=== PATIENT | male | born 1945 | race Caucasian/White ===

== ENCOUNTER 2021-06-16 10:38 | Inpatient (IN) | payer MEDICARE, SELFPAY ==
--- NOTE | ~2021-06-16 | US_ITS ---
EXAMINATION: US VENOUS ULTRASOUND WITH DOPPLER LOWER EXTREMITY, RIGHT CLINICAL INFORMATION: Swelling. COMPARISON: None TECHNIQUE: Ultrasound of the deep veins is performed from the hip to the calf with compression sonography and color and pulse Doppler assessment. Spectral analysis with color-flow imaging is performed. FINDINGS: There is normal venous compression and respiratory variation and augmented flow. The visualized common femoral vein, superficial femoral vein, profunda femoral vein, popliteal vein, and the trifurcation region shows no evidence of deep venous thrombosis. There is no significant popliteal fossa cyst. There are small right groin lymph nodes. The largest lymph nodes measures 3.2 x 1.5 and 0.9 cm and 2.9 x 1.6 x 1.4 cm. If the patient's symptoms persist, followup ultrasound in 5 days 7 days might be of value to exclude proximal propagation from a non-visualized calf vein. US/US venous duplex LE RT IMPRESSION: No DVT demonstrated in the right lower extremity.
[2021-06-16 12:39] VITALS: BP 160/82; PULSE 60; RESP 16; TEMP 36.4; O2SAT 96; BMI 30.6
--- NOTE | 2021-06-16 12:49 | PC.NURSE ---
wes cesar requests pt transfered to main ed for further evaluation/treatment. report to [facility] charge hand, Larisa and VAZQUEZ Moscoso, pt transported via by christopher Velasquez
--- NOTE | 2021-06-16 13:19 | ED.GENADULT ---
HPI - General Adult General Chief complaint: Extremity Injury, Lower Stated complaint: rt calf infection Time Seen by Provider: 06/16/21 13:15 History of Present Illness HPI narrative: This is a 76 years old male presented to the emergency department complaining of redness on right lower extremity is swelling as well for about 2 weeks, he denies any fever, chills, vomiting Onset (ago): week(s) (2) Location: lower extremity (rt) Severity: moderate Quality: burning Pain Consistency: constant Relieving factors: none Related Data Home Medications Medication Instructions Recorded Confirmed amlodipine 5 mg tablet 5 mg PO DAILY 06/16/21 06/16/21 atenolol 50 mg tablet 50 mg PO DAILY 06/16/21 06/16/21 betamethasone, augmented 0.05 % 1 appl TOPICAL DAILY PRN 06/16/21 06/16/21 topical cream diphenhydramine HCl 25 mg capsule 50 mg PO BID PRN 06/16/21 06/16/21 (Benadryl) famotidine 40 mg tablet 40 mg PO BID 06/16/21 06/16/21 fluticasone furoate 27.5 2 spray INTRANASAL DAILY 06/16/21 06/16/21 mcg/actuation nasal spray,suspension ibuprofen 200 mg tablet 400 mg PO BID 06/16/21 06/16/21 sertraline 50 mg tablet 50 mg PO DAILY 06/16/21 06/16/21 Allergies Allergy/AdvReac Type Severity Reaction Status Date / Time Penicillins [PENICILLINS] Allergy Unknown HIVES, Unverified 07/10/20 16:59 DIARRHEA tetracycline [TETRACYCLINE] Allergy Unknown HIVES, Unverified 07/10/20 16:59 DIARRHEA SEASONAL ALLERGIES Allergy Mild NASAL Uncoded 07/10/20 16:59 CONJESTIONS Review of Systems Review of Systems: Yes all other systems are reviewed and are negative Constitutional: Constitutional: Reports no additional constitutional complaints Eyes: Eyes: Reports no additional eye complaints ENT: Reports system reviewed and no additional complaints, except as documented Musculoskeletal: Musculoskeletal: Reports no additional musculoskeletal complaints Allergic/Immunologic: Allergic/Immunologic: Reports no additional allergic/immunologic complaints PMFSH Past Medical History Attestation statement: The following information was validated with the patient. Medical History Cataract (lens) fragments in eye following cataract surgery, bilateral HTN (hypertension) Surgical History H/O eye surgery History of tonsillectomy Family History Family History Father Heart disease Social History Social History (Updated 06/16/21 @ 16:27 by Jg Mccain MD) Alcohol intake: never Patient Tobacco Use Status: Former Tobacco user Quit Date: 1975 Use of substances other than those prescribed or required for medical reasons: No Advance Directives: Yes Advance Directives Information Provided: Yes Advance Directives on File: No Physical Exam Vital Signs: Vital Signs: Last Vital Signs Temp 97.9 F 06/16/21 14:07 Pulse 69 06/16/21 14:07 Resp 18 06/16/21 14:07 BP 178/116 H 06/16/21 14:07 Pulse Ox 98 06/16/21 14:07 Body Mass Index 30.6 Const: General: cooperative HENMT: Head: Yes normal to inspection Mouth: Normal oral and palatal mucosa present Neck: Neck: Yes normal visual inspection and Yes full ROM Chest: Chest palpation & inspection: normal inspection of the chest and normal palpation of entire chest wall Resp: Effort & Inspection: normal respiratory effort and able to speak in complete sentences Auscultation: clear to auscultation bilaterally Cardio: Jugular venous distension: no JVD Rate: regular rate Rhythm: regular rhythm GI: Inspection: Yes normal to inspection Palpation (GI): Soft to palpation, not firm, nontender and no guarding Extrem: Other: There is swelling, redness erythema of the right lower extremity Medical Decision Making Lab Data Result diagrams: 06/16/21 13:37 06/16/21 13:37 Labs: Lab Results 06/16/21 06/16/21 06/16/21 Range/Units 13:37 13:37 13:37 WBC 13.2 H (4.8-10.8) X10*3/uL RBC 4.58 L (4.60-5.80) X10*6/uL Hgb 13.8 L (14.0-18.0) g/dl Hct 40.0 L (42-52) % MCV 87.3 (80-98) fL MCH 30.1 (27.0-33.0) pg MCHC 34.5 (31.0-36.0) g/dl RDW 13.4 (11.0-16.0) % Plt Count 332 (160-400) X10*3/uL MPV 9.2 L (9.4-12.4) fL Immature Gran % (Auto) 0.5 H (0.0-0.4) % Neut % (Auto) 75.8 H (45-73) % Lymph % (Auto) 7.8 L (20-40) % [place] % (Auto) 6.9 (2-11) % Eos % (Auto) 8.5 H (0-4) % Baso % (Auto) 0.5 (0-2) % Lymph # (Auto) 1.0 L (1.2-4.9) X10*3/uL [place] # (Auto) 0.9 (0.1-1.2) X10*3/uL Eos # (Auto) 1.1 H (0.0-0.4) X10*3/uL Baso # (Auto) 0.1 (0.0-0.2) X10*3/uL Abs Immat Gran (auto) 0.06 H (0.00-0.03) X10*3/uL Absolute Neuts (auto) 10.0 H (2.0-8.3) X10*3/uL Absolute Nucleated RBC 0.000 (0.0-0.012) X10*3/uL Nucleated RBC % (auto) 0.0 (0.0-0.2) /100WBC ESR 8 (0-15) MM/HR Sodium 140 (135-145) mmol/L Potassium 4.5 (3.3-5.1) mmol/L Chloride 105 (96-108) mmol/L Carbon Dioxide 28 (22-29) mmol/L Anion Gap 12 (12-20) BUN 16 (9-16) mg/dL Creatinine 1.26 (0.5-1.4) mg/dL Estim Creat Clear Calc 63.5 Estimated GFR 56 Random Glucose 106 (60-115) mg/dL Calcium 9.4 (8.4-10.2) mg/dL Total Bilirubin 0.6 (0.0-1.0) mg/dL AST 17 (5-37) U/L ALT 15 (0-40) U/L Alkaline Phosphatase 77 (39-117) U/L Total Protein 7.5 (6.5-8.0) g/dL Albumin 4.1 (3.5-5.0) g/dL Discharge Plan Discharge Clinical Impression: Cellulitis of right lower extremity Patient Disposition: Admitted As Inpatient
[2021-06-16 13:53] LABS: MANUAL DIFF FLAG NO
[2021-06-16 13:55] LABS: Basophils Absolute Auto 0.1 X10*3/uL (0.0-0.2); Basophils Percent Auto 0.5 % (0-2); Eosinophils Absolute Auto 1.1 X10*3/uL (0.0-0.4); Eosinophils Percent Auto 8.5 % (0-4); Hemoglobin 13.8 g/dl (14.0-18.0); Imm Gran Abs Auto 0.06 X10*3/uL (0.00-0.03); Imm Gran Pct Auto 0.5 % (0.0-0.4); Lymphocytes Percent Auto 7.8 % (20-40); Mean Corpuscular HGB Conc 34.5 g/dl (31.0-36.0); Mean Corpuscular Hemoglobin 30.1 pg (27.0-33.0); Mean Corpuscular Volume 87.3 fL (80-98); Mean Platelet Volume 9.2 fL (9.4-12.4); Monocytes Absolute Auto 0.9 X10*3/uL (0.1-1.2); Monocytes Percent Auto 6.9 % (2-11); Neutrophils Percent Auto 75.8 % (45-73); Platelet Count 332 X10*3/uL (160-400); Red Blood Count 4.58 X10*6/uL (4.60-5.80); Red Cell Distribution Width 13.4 % (11.0-16.0); White Blood Count 13.2 X10*3/uL (4.8-10.8)
[2021-06-16 14:07] VITALS: BP 178/116; PULSE 69; RESP 18; TEMP 36.6; O2SAT 98
[2021-06-16 14:26] LABS: Alanine Aminotransferase 15 U/L (0-40); Albumin Level 4.1 g/dL (3.5-5.0); Alkaline Phosphatase 77 U/L (39-117); Anion Gap 12 (12-20); Aspartate Amino Transferase 17 U/L (5-37); Bilirubin Total 0.6 mg/dL (0.0-1.0); Blood Urea Nitrogen 16 mg/dL (9-16); Calcium 9.4 mg/dL (8.4-10.2); Carbon Dioxide 28 mmol/L (22-29); Chloride 105 mmol/L (96-108); Creatinine Clr Calc Pharmacy 63.5; Estimated Glomerular Filt Rate 56; Glucose Random 106 mg/dL (60-115); Potassium 4.5 mmol/L (3.3-5.1); Sodium 140 mmol/L (135-145); Total Protein 7.5 g/dL (6.5-8.0)
[2021-06-16 14:33] LABS: Erythrocyte Sedimentation Rate 8 MM/HR (0-15)
--- NOTE | 2021-06-16 16:25 | P.HPHOSP_ITS ---
History of Present Illness Date of Service: 06/16/21 Chief Complaint: rle erythema edema 76-year-old male presented with right lower extremity erythema and edema. Patient states that he hit his foot on stair and scraped his leg about 2-3 weeks prior to presentation. Since that time he has had swelling in his right lower extremity associated with erythema and pain. Patient denies any fever chills. Patient's urged him to seek medical care. Denies any chest pain, shortness of breath, nausea vomiting, diarrhea. Review of Systems Review of Systems: Constitutional: Denies fever, denies Chills Eyes: denies blurry vision ENT: denies sore throat CVS: denies chest pain Respiratory: Denies dyspnea GI: no abdominal pain : denies dysuria MSK: denies neck pain Skin: see hpi Neuro: denies specific motor weakness Psych: denies suicidal ideation Endocrine: denies heat/cold intolerance Hematologic: denies easy bleeding Allergy: denies hives [facility] Medical History Cataract (lens) fragments in eye following cataract surgery, bilateral HTN (hypertension) Family History Father Heart disease Family history: reviewed and not pertinent Surgical History H/O eye surgery History of tonsillectomy Social History (Updated 06/16/21 @ 16:27 by Jg Mccain MD) Alcohol intake: never Patient Tobacco Use Status: Former Tobacco user Quit Date: 1975 Use of substances other than those prescribed or required for medical reasons: No Advance Directives: Yes Advance Directives Information Provided: Yes Advance Directives on File: No Meds Allergies Allergy/AdvReac Type Severity Reaction Status Date / Time Penicillins [PENICILLINS] Allergy Unknown HIVES, Unverified 07/10/20 16:59 DIARRHEA tetracycline [TETRACYCLINE] Allergy Unknown HIVES, Unverified 07/10/20 16:59 DIARRHEA SEASONAL ALLERGIES Allergy Mild NASAL Uncoded 07/10/20 16:59 CONJESTIONS Active Medications: Current Medications Generic Name Dose Route Start Last Admin Trade Name Freq PRN Reason Stop Dose Admin Acetaminophen 650 mg 06/16/21 16:21 Acetaminophen 325 Mg Tablet PO Q6H PRN Pain, Mild (Pain Scale 1-3) Vancomycin HCl 1,000 mg/ 270 mls @ 270 mls/hr 06/16/21 15:49 Sodium Chloride IV 06/16/21 16:48 ONCE ONE Vancomycin HCl 1,000 mg/ 270 mls @ 270 mls/hr 06/17/21 06:00 Sodium Chloride IV Q12H [facility] Pharmacy Consult 1 each 06/16/21 15:56 Consult Rx Perform Med Rec MISCELLANE ONCE PRN Consult order Pharmacy Consult 1 each 06/16/21 16:21 Consult Rx Vancomycin Dosing MISCELLANE DAILY PRN Consult order Rivaroxaban 10 mg 06/17/21 09:00 Rivaroxaban 10 Mg Tablet PO DAILY [facility] Sodium Chloride 3 ml 06/17/21 00:00 0.9 % Sodium Chloride Flush 3 Ml Syringe IVFLUSH QSHIFT [facility] Home Medications Medication Instructions Recorded Confirmed Last Taken Type amlodipine 5 mg tablet 5 mg PO DAILY 06/16/21 06/16/21 06/16/21 History atenolol 50 mg tablet 50 mg PO DAILY 06/16/21 06/16/21 06/16/21 History famotidine 40 mg tablet 40 mg PO BID 06/16/21 06/16/21 06/16/21 History Physical Exam Vital Signs and Narrative: Vital Signs: Last Vital Signs Temp 97.9 F 06/16/21 14:07 Pulse 69 06/16/21 14:07 Resp 18 06/16/21 14:07 BP 178/116 H 06/16/21 14:07 Pulse Ox 98 06/16/21 14:07 Body Mass Index 30.6 General: no acute distress HEENT: atraumatic Neck: normal to visual inspection CVS: S1, S2, RRR Resp: CTA bilateral Chest: non tender GI: soft, non tender, non distended : no CVA tenderness Skin: rLE erythema edema Extremities: rle edema Neuro: Oriented X3, grossly intact Psych: cooperative Results Labs CBC and Chem 7: 06/16/21 13:37 06/16/21 13:37 Labs: Laboratory Results - last 24 hr 06/16/21 06/16/21 06/16/21 13:37 13:37 13:37 MCV 87.3 MCH 30.1 MCHC 34.5 RDW 13.4 Plt Count 332 MPV 9.2 L Immature Gran % (Auto) 0.5 H Neut % (Auto) 75.8 H Lymph % (Auto) 7.8 L [place] % (Auto) 6.9 Eos % (Auto) 8.5 H Baso % (Auto) 0.5 Lymph # (Auto) 1.0 L [place] # (Auto) 0.9 Eos # (Auto) 1.1 H Baso # (Auto) 0.1 Abs Immat Gran (auto) 0.06 H Absolute Neuts (auto) 10.0 H Absolute Nucleated RBC 0.000 Nucleated RBC % (auto) 0.0 ESR 8 Anion Gap 12 Estim Creat Clear Calc 63.5 Estimated GFR 56 Random Glucose 106 Calcium 9.4 Total Bilirubin 0.6 AST 17 ALT 15 Alkaline Phosphatase 77 Total Protein 7.5 Albumin 4.1 Imaging Radiologist's Impressions: Impressions Venous Duplex 06/16/21 13:16 IMPRESSION: No DVT demonstrated in the right lower extremity. Assessment and Plan (1) Cellulitis of right lower extremity: Status: Acute 76M presented with rle erytehma and edema rle cellulitis vanco follow up cultures htn amlodipine, atenolol mood disorder sertraline dvt prophylaxis - xarelto Quality Stroke Does the patient have a stroke diagnosis?: No VTE Prior VTE?: No VTE Risk Level:: Medical - moderate - high VTE Device Contraindication: Treatment Not Indicated VTE Drug Contraindication: N/A - Med Ordered
--- NOTE | 2021-06-16 16:36 | PHA.MEDREC ---
med rec complete, no issues Pharmacy Consult ? Medication Reconciliation Pharmacy has completed the medication reconciliation.
[2021-06-16] MEDS: vancomycin HCL 1,000 MG in 0.9 % Sodium Chloride 250 ML 270 MG IV (16:51)
[2021-06-16 17:00] LABS: COVID-19 Test Negative (Negative)
--- NOTE | 2021-06-16 18:35 | PC.NURSE ---
Pt alert and oriented. Notified of transfer to floor. Attmpt at calling report at this time. Pt ate his dinner and able to walk himself to the bathroom.
--- NOTE | 2021-06-16 19:22 | PC.NURSE ---
pt to floor in stable condition w/ all belongings via Jason PCT. report called by day shift RN
[2021-06-16 19:46] VITALS: BP 162/105; PULSE 82; RESP 18; TEMP 36.2; O2SAT 98
[2021-06-16] MEDS: Acetaminophen 325 MG TABLET 650 MG PO (20:17)
[2021-06-16] MEDS: Famotidine 20 MG TABLET 40 MG PO (20:17)
[2021-06-16] MEDS: diphenhydrAMINE HCL 25 MG TABLET 50 MG PO (20:23)
[2021-06-16] MEDS: 0.9 % Sodium Chloride Flush 3 ML SYRINGE IVFLUSH (20:23)
[2021-06-16 21:03] VITALS: BP 158/89
[2021-06-16] MEDS: Betamethasone Dip Aug 0.05% Cr 15 GM TUBE 1 APPL TOPICAL (21:50)
[2021-06-16 23:28] VITALS: BP 149/90; PULSE 79; RESP 16; TEMP 36.8; O2SAT 97
[2021-06-17 04:00] VITALS: BP 150/84; PULSE 72; RESP 18; TEMP 37.1; O2SAT 97
[2021-06-17] MEDS: vancomycin HCL 750 MG in 0.9 % Sodium Chloride 250 ML 265 MG IV ×2 (06:01→17:51)
[2021-06-17 06:23] LABS: MANUAL DIFF FLAG NO
[2021-06-17 06:43] LABS: Basophils Percent Auto 0.4 % (0-2); Eosinophils Percent Auto 8.7 % (0-4); Hematocrit 35.9 % (42-52); Hemoglobin 12.7 g/dl (14.0-18.0); Imm Gran Abs Auto 0.06 X10*3/uL (0.00-0.03); Imm Gran Pct Auto 0.5 % (0.0-0.4); Lymphocytes Absolute Auto 1.1 X10*3/uL (1.2-4.9); Mean Corpuscular HGB Conc 35.4 g/dl (31.0-36.0); Mean Corpuscular Hemoglobin 30.7 pg (27.0-33.0); Mean Corpuscular Volume 86.7 fL (80-98); Mean Platelet Volume 9.6 fL (9.4-12.4); Monocytes Absolute Auto 0.9 X10*3/uL (0.1-1.2); Monocytes Percent Auto 7.7 % (2-11); Neutrophils Absolute Auto 8.1 X10*3/uL (2.0-8.3); Neutrophils Percent Auto 72.7 % (45-73); Platelet Count 290 X10*3/uL (160-400); Red Blood Count 4.14 X10*6/uL (4.60-5.80); Red Cell Distribution Width 13.1 % (11.0-16.0); White Blood Count 11.2 X10*3/uL (4.8-10.8)
[2021-06-17 07:04] LABS: Anion Gap 11 (12-20); Blood Urea Nitrogen 16 mg/dL (9-16); Calcium 8.5 mg/dL (8.4-10.2); Carbon Dioxide 26 mmol/L (22-29); Chloride 104 mmol/L (96-108); Creatinine Clr Calc Pharmacy 75.4; Estimated Glomerular Filt Rate > 60; Glucose Random 97 mg/dL (60-115); Potassium 3.9 mmol/L (3.3-5.1); Sodium 137 mmol/L (135-145)
[2021-06-17 07:53] VITALS: BP 163/92; PULSE 78; RESP 18; TEMP 36.4; O2SAT 96
[2021-06-17] MEDS: Famotidine 20 MG TABLET 40 MG PO ×2 (08:03→21:02)
[2021-06-17] MEDS: atenoloL 50 MG TABLET PO (08:03)
[2021-06-17] MEDS: Sertraline HCL 50 MG TABLET PO (08:03)
[2021-06-17] MEDS: Rivaroxaban 10 MG TABLET PO (08:03)
[2021-06-17] MEDS: amLODIPine Besylate 5 MG TABLET PO (08:03)
[2021-06-17] MEDS: 0.9 % Sodium Chloride Flush 3 ML SYRINGE IVFLUSH ×2 (08:05→17:51)
[2021-06-17] MEDS: Acetaminophen 325 MG TABLET 650 MG PO ×2 (08:07→21:02)
--- NOTE | 2021-06-17 09:52 | P.PNIM_ITS ---
Subjective Subjective Date of Service: 06/17/21 Interval History: some improvement, mostly in the swelling Cardiovascular Cardiovascular: Reports no additional cardiovascular complaints Respiratory Respiratory: Reports no additional respiratory complaints Physical Exam Vital Signs: Vital Signs: Last Vital Signs Temp 97.5 F 06/17/21 07:53 Pulse 78 06/17/21 07:53 Resp 18 06/17/21 07:53 BP 163/92 H 06/17/21 07:53 Pulse Ox 96 06/17/21 07:53 Body Mass Index 30.6 General: AO X 3, no acute distress Resp: CTA bilateral CVS: S1,S2,RRR GI: soft, non tender, non distended Neuro: motor grossly intact Psych: appropriate affect RLE decreased edema, persistent ertyhema Objective Data Current Medications Generic Name Dose Route Start Last Admin Trade Name Freq PRN Reason Stop Dose Admin Acetaminophen 650 mg 06/16/21 16:21 06/17/21 08:07 Acetaminophen 325 Mg Tablet PO 650 mg Q6H PRN Administration Pain, Mild (Pain Scale 1-3) Amlodipine Besylate 5 mg 06/17/21 09:00 06/17/21 08:03 Amlodipine Besylate 5 Mg Tablet PO 5 mg DAILY NEGRO Administration Protocol Atenolol 50 mg 06/17/21 09:00 06/17/21 08:03 Atenolol 50 Mg Tablet PO 50 mg DAILY NEGRO Administration Protocol Betamethasone Dipropion Augmented 1 appl 06/16/21 20:15 06/16/21 21:50 Betamethasone Dip Aug 0.05% Cr 15 Gm Tube TOPICAL 1 appl DAILY PRN Administration DERMATITIS Protocol Diphenhydramine HCl 50 mg 06/16/21 20:15 06/16/21 20:23 Diphenhydramine Hcl 25 Mg Tablet PO 50 mg BID PRN Administration Allergy Symptoms Famotidine 40 mg 06/16/21 21:00 06/17/21 08:03 Famotidine 20 Mg Tablet PO 40 mg BID NEGRO Administration Fluticasone Propionate 1 spray 06/17/21 09:00 Fluticasone Propionate Nasal 16 Gm [place] NOSTRIL-B DAILY [facility] Vancomycin HCl 750 mg/ Sodium 265 mls @ 265 mls/hr 06/17/21 06:00 06/17/21 07:08 Chloride IV Infused Q12H [facility] Infusion Pharmacy Consult 1 each 06/16/21 15:56 Consult Rx Perform Med Rec MISCELLANE ONCE PRN Consult order Pharmacy Consult 1 each 06/16/21 16:21 Consult Rx Vancomycin Dosing MISCELLANE DAILY PRN Consult order Rivaroxaban 10 mg 06/17/21 09:00 06/17/21 08:03 Rivaroxaban 10 Mg Tablet PO 10 mg DAILY NEGRO Administration Sertraline HCl 50 mg 06/16/21 20:15 06/17/21 08:03 Sertraline Hcl 50 Mg Tablet PO 50 mg DAILY NEGRO Administration Sodium Chloride 3 ml 06/17/21 00:00 06/17/21 08:05 0.9 % Sodium Chloride Flush 3 Ml Syringe IVFLUSH 3 ml QSHIFT [facility] Administration Labs CBC & Chem 7: 06/17/21 06:09 06/17/21 06:09 Labs: Laboratory Results - last 24 hr 06/16/21 06/16/21 06/16/21 13:37 13:37 13:37 MCV 87.3 MCH 30.1 MCHC 34.5 RDW 13.4 Plt Count 332 MPV 9.2 L Immature Gran % (Auto) 0.5 H Neut % (Auto) 75.8 H Lymph % (Auto) 7.8 L [place] % (Auto) 6.9 Eos % (Auto) 8.5 H Baso % (Auto) 0.5 Lymph # (Auto) 1.0 L [place] # (Auto) 0.9 Eos # (Auto) 1.1 H Baso # (Auto) 0.1 Abs Immat Gran (auto) 0.06 H Absolute Neuts (auto) 10.0 H Absolute Nucleated RBC 0.000 Nucleated RBC % (auto) 0.0 ESR 8 Anion Gap 12 Estim Creat Clear Calc 63.5 Estimated GFR 56 Random Glucose 106 Calcium 9.4 Total Bilirubin 0.6 AST 17 ALT 15 Alkaline Phosphatase 77 Total Protein 7.5 Albumin 4.1 COVID-19 ([facility]) COVID-19 Clin Com 06/16/21 06/17/21 06/17/21 16:37 06:09 06:09 MCV 86.7 MCH 30.7 MCHC 35.4 RDW 13.1 Plt Count 290 MPV 9.6 Immature Gran % (Auto) 0.5 H Neut % (Auto) 72.7 Lymph % (Auto) 10.0 L [place] % (Auto) 7.7 Eos % (Auto) 8.7 H Baso % (Auto) 0.4 Lymph # (Auto) 1.1 L [place] # (Auto) 0.9 Eos # (Auto) 1.0 H Baso # (Auto) 0.0 Abs Immat Gran (auto) 0.06 H Absolute Neuts (auto) 8.1 Absolute Nucleated RBC 0.000 Nucleated RBC % (auto) 0.0 ESR Anion Gap 11 L Estim Creat Clear Calc 75.4 Estimated GFR > 60 Random Glucose 97 Calcium 8.5 D Total Bilirubin AST ALT Alkaline Phosphatase Total Protein Albumin COVID-19 (FELIPE) Negative COVID-19 Clin Com See Note Assessment and Plan (1) Cellulitis of right lower extremity: Status: Acute Assessment and Plan: ?76M presented with rle erytehma and edema rle cellulitis continue vanco follow up cultures htn amlodipine, atenolol mood disorder sertraline dvt prophylaxis - xarelto Quality Stroke Does the patient have a stroke diagnosis?: No VTE Prior VTE?: No VTE Risk Level:: Medical - moderate - high VTE Device Contraindication: Treatment Not Indicated VTE Drug Contraindication: N/A - Med Ordered
[2021-06-17 11:59] VITALS: BP 139/74; PULSE 66; RESP 18; TEMP 37.1; O2SAT 95
[2021-06-17] MEDS: Fluticasone Propionate Nasal 16 GM SPRAY 1 SPRAY NOSTRIL-B (12:05)
[2021-06-17 15:37] VITALS: BP 160/80; PULSE 63; RESP 17; TEMP 36.3; O2SAT 96
--- NOTE | 2021-06-17 15:43 | MHC.CM.PN ---
IMM 06/17/21, EMR REVIEWED, PT ADMITTED W/CELLULITIS OF RLE, PT REPORTS IT IS THE THIRD TIME HE'S HAD THIS PROBLEM AND HAS ALWAYS GONE HOME W/ORAL ABX, PER HOSPITALIST PT WILL REMAIN ON IV ABX 1-2 DAYS AND D/C ON ORAL ABX. PT LIVES W/ AND BROTHER, PT IS INDEPENDENT W/ALL CARE, NO DME AND NO HOME SERVICES, PT REPORTS HE HAS HAD A VNA IN PAST HOWEVER IS CURRENTLY DECLINING REPORTING HIS WILL TAKE CARE OF ANY NEEDS HE MAY HAVE, PT VERIFIES PCP AND HCP IS ON FILE FROM PREVIOUS ADMISSION. D/C PLAN: HOME SELF-CARE, FAMILY TO TRANSPORT.
[2021-06-17 19:46] VITALS: BP 169/86; PULSE 73; RESP 16; TEMP 36.7; O2SAT 97
[2021-06-17] MEDS: diphenhydrAMINE HCL 25 MG TABLET 50 MG PO (21:02)
[2021-06-17 23:20] VITALS: BP 160/90; PULSE 70; RESP 18; TEMP 36.4; O2SAT 97
[2021-06-18] MEDS: 0.9 % Sodium Chloride Flush 3 ML SYRINGE IVFLUSH ×3 (00:43→15:34)
[2021-06-18 03:00] VITALS: BP 156/81; PULSE 66; RESP 18; TEMP 36.2; O2SAT 97
[2021-06-18 05:23] LABS: Vancomycin Trough 9.8 mcg/mL (10.0-20.0)
[2021-06-18] MEDS: vancomycin HCL 750 MG in 0.9 % Sodium Chloride 250 ML 265 MG IV ×2 (06:38→17:55)
--- NOTE | 2021-06-18 06:41 | PC.NURSE ---
Vancomycin trough low at 9.8, patient is on vancomycin 750 mg q12h. This rn spoke to pharmacy, co to give 0600 dose.
[2021-06-18 07:43] VITALS: BP 174/83; PULSE 66; RESP 17; TEMP 36.8; O2SAT 95
[2021-06-18] MEDS: Sertraline HCL 50 MG TABLET PO (07:51)
[2021-06-18] MEDS: Famotidine 20 MG TABLET 40 MG PO ×2 (07:51→20:18)
[2021-06-18] MEDS: amLODIPine Besylate 5 MG TABLET PO ×2 (07:51→15:33)
[2021-06-18] MEDS: atenoloL 50 MG TABLET PO (07:52)
[2021-06-18] MEDS: Rivaroxaban 10 MG TABLET PO (07:55)
[2021-06-18] MEDS: Acetaminophen 325 MG TABLET 650 MG PO (07:56)
--- NOTE | 2021-06-18 08:30 | P.PNIM_ITS ---
Subjective Subjective Date of Service: 06/18/21 Interval History: Seen in f/u for cellulitis that is extensive, seem a bit better Review of Systems Gen: no fever Resp: no sob, no cough CV: no chest, no MCCURDY, no leg edema GI: No n/v, no abd pain Neuro: No confusion skin: redness of leg Physical Exam Vital Signs: Vital Signs: Last Vital Signs Temp 98.3 F 06/18/21 07:43 Pulse 66 06/18/21 07:43 Resp 17 06/18/21 07:43 BP 174/83 H 06/18/21 07:43 Pulse Ox 95 06/18/21 07:43 Body Mass Index 30.6 Const: General: comfortable Orientation/consciousness: patient oriented x3 Resp: Effort & Inspection: normal respiratory effort Cardio: Rate: regular rate Heart sounds: S1 normal heart sound present and S2 normal heart sound present GI: Inspection: Yes normal to inspection Skin: Other: extensive erythema of entire right leg with superficial ulcerations Neuro: General: patient oriented x3 Cognition (Neuro): normal cognition Psych: Appearance: grossly normal Objective Data Current Medications Generic Name Dose Route Start Last Admin Trade Name Freq PRN Reason Stop Dose Admin Acetaminophen 650 mg 06/16/21 16:21 06/18/21 07:56 Acetaminophen 325 Mg Tablet PO 650 mg Q6H PRN Administration Pain, Mild (Pain Scale 1-3) Amlodipine Besylate 5 mg 06/17/21 09:00 06/18/21 07:51 Amlodipine Besylate 5 Mg Tablet PO 5 mg DAILY NEGRO Administration Protocol Atenolol 50 mg 06/17/21 09:00 06/18/21 07:52 Atenolol 50 Mg Tablet PO 50 mg DAILY NEGRO Administration Protocol Betamethasone Dipropion Augmented 1 appl 06/16/21 20:15 06/16/21 21:50 Betamethasone Dip Aug 0.05% Cr 15 Gm Tube TOPICAL 1 appl DAILY PRN Administration DERMATITIS Protocol Diphenhydramine HCl 50 mg 06/16/21 20:15 06/17/21 21:02 Diphenhydramine Hcl 25 Mg Tablet PO 50 mg BID PRN Administration Allergy Symptoms Famotidine 40 mg 06/16/21 21:00 06/18/21 07:51 Famotidine 20 Mg Tablet PO 40 mg BID NEGRO Administration Fluticasone Propionate 1 spray 06/17/21 09:00 06/18/21 07:57 Fluticasone Propionate Nasal 16 Gm [place] NOSTRIL-B Not Given DAILY [facility] Vancomycin HCl 750 mg/ Sodium 265 mls @ 265 mls/hr 06/17/21 06:00 06/18/21 07:49 Chloride IV Infused Q12H [facility] Infusion Pharmacy Consult 1 each 06/16/21 15:56 Consult Rx Perform Med Rec MISCELLANE ONCE PRN Consult order Pharmacy Consult 1 each 06/16/21 16:21 Consult Rx Vancomycin Dosing MISCELLANE DAILY PRN Consult order Rivaroxaban 10 mg 06/17/21 09:00 06/18/21 07:55 Rivaroxaban 10 Mg Tablet PO 10 mg DAILY [facility]GRO Administration Sertraline HCl 50 mg 06/16/21 20:15 06/18/21 07:51 Sertraline Hcl 50 Mg Tablet PO 50 mg DAILY NEGRO Administration Sodium Chloride 3 ml 06/17/21 00:00 06/18/21 07:53 0.9 % Sodium Chloride Flush 3 Ml Syringe IVFLUSH 3 ml QSHIFT [facility] Administration Labs CBC & Chem 7: 06/17/21 06:09 06/17/21 06:09 Labs: Laboratory Results - last 24 hr 06/18/21 04:46 Vancomycin Trough 9.8 L Microbiology Microbiology Results: Microbiology 06/16/21 14:58 Blood Culture - Preliminary Blood - Venous No growth after 24 hours. 06/16/21 14:11 Blood Culture - Preliminary Blood - Venous No growth after 24 hours. Assessment and Plan (1) Cellulitis of right lower extremity: Status: Acute Assessment and Plan: 76M presented with rle erytehma and edema Right leg extensive cellulitis covering > 50% of the limb associated with ulcers and limb threatening. Would continue IV antibiotics and reassess tomorrow for transitioning to oral meds. Follow cultures HTN--BP high, continue Ateneolol and increase Norvasc to 10 Mood disorder sertraline DVT prophylaxis - xarelto Quality Stroke Does the patient have a stroke diagnosis?: No VTE Prior VTE?: No VTE Risk Level:: Medical - moderate - high VTE Device Contraindication: Treatment Not Indicated VTE Drug Contraindication: N/A - Med Ordered
[2021-06-18 12:00] VITALS: RESP 18
[2021-06-18 15:08] VITALS: BP 159/75; PULSE 57; RESP 18; TEMP 37.2; O2SAT 97
[2021-06-18 18:54] VITALS: BP 173/85; PULSE 66; RESP 20; TEMP 37; O2SAT 96
[2021-06-18 22:59] VITALS: BP 152/81; PULSE 61; RESP 16; TEMP 36.7; O2SAT 97
[2021-06-19] MEDS: 0.9 % Sodium Chloride Flush 3 ML SYRINGE IVFLUSH ×4 (00:03→21:45)
[2021-06-19 04:00] VITALS: BP 158/88; PULSE 73; RESP 18; TEMP 36.3; O2SAT 95
[2021-06-19] MEDS: vancomycin HCL 750 MG in 0.9 % Sodium Chloride 250 ML 265 MG IV ×2 (06:23→18:04)
[2021-06-19 07:45] VITALS: BP 188/88; PULSE 58; RESP 18; TEMP 36.9; O2SAT 98
[2021-06-19] MEDS: amLODIPine Besylate 10 MG TABLET PO (08:33)
[2021-06-19] MEDS: Famotidine 20 MG TABLET 40 MG PO ×2 (08:33→21:18)
[2021-06-19] MEDS: Rivaroxaban 10 MG TABLET PO (08:33)
[2021-06-19] MEDS: Fluticasone Propionate Nasal 16 GM SPRAY 1 SPRAY NOSTRIL-B (08:33)
[2021-06-19] MEDS: atenoloL 50 MG TABLET PO (08:33)
[2021-06-19] MEDS: Sertraline HCL 50 MG TABLET PO (08:33)
[2021-06-19 11:36] VITALS: BP 140/81; PULSE 65; RESP 16; TEMP 36.4; O2SAT 98
[2021-06-19] MEDS: NeoMY/Polymyx/Bacit/Ointment 14 GM Tube TOPICAL (13:15)
--- NOTE | 2021-06-19 13:41 | P.PNIM_ITS ---
Subjective Subjective Date of Service: 06/19/21 Interval History: the patient was seen and evaluated this morning Laying in bed, feels better today as edema and pain decreased in his right lower extremity Denies any fever, chills or shortness of breath No reported other overnight events. Systemic review: No fever, chills or weakness No chest pain, palpitation No shortness of breath or coughing No abdominal pain, nausea or vomiting No urinary symptoms Rash improving but the day still read H and H she Physical Exam Vital Signs: Vital Signs: Last Vital Signs Temp 97.6 F 06/19/21 11:36 Pulse 65 06/19/21 11:36 Resp 16 06/19/21 11:36 BP 140/81 H 06/19/21 11:36 Pulse Ox 98 06/19/21 11:36 Body Mass Index 30.6 Const: Other: Constitutional : Alert, oriented, not in distress Neck : Normal inspection, Supple Cardiovascular : RRR, S1 S2, +1 edema in the right lower extremity edema Respiratory : Good bilateral air entry, no crackles, wheezes or rhonchi Gastrointestinal: soft, lax, Normal bowel sounds, Non tender Skin : Warm, Dry, pinkish discoloration of the right lower extremity which seems to be improving in comparison with previous images, no tenderness with mild edema Neurological : Alert & oriented x3, No focal deficit Objective Data Current Medications Generic Name Dose Route Start Last Admin Trade Name Freq PRN Reason Stop Dose Admin Acetaminophen 650 mg 06/16/21 16:21 06/18/21 07:56 Acetaminophen 325 Mg Tablet PO 650 mg Q6H PRN Administration Pain, Mild (Pain Scale 1-3) Amlodipine Besylate 10 mg 06/19/21 09:00 06/19/21 08:33 Amlodipine Besylate 10 Mg Tablet PO 10 mg DAILY NEGRO Administration Protocol Atenolol 50 mg 06/17/21 09:00 06/19/21 08:33 Atenolol 50 Mg Tablet PO 50 mg DAILY NEGRO Administration Protocol Betamethasone Dipropion Augmented 1 appl 06/16/21 20:15 06/16/21 21:50 Betamethasone Dip Aug 0.05% Cr 15 Gm Tube TOPICAL 1 appl DAILY PRN Administration DERMATITIS Protocol Diphenhydramine HCl 50 mg 06/16/21 20:15 06/17/21 21:02 Diphenhydramine Hcl 25 Mg Tablet PO 50 mg BID PRN Administration Allergy Symptoms Famotidine 40 mg 06/16/21 21:00 06/19/21 08:33 Famotidine 20 Mg Tablet PO 40 mg BID [facility] Administration Fluticasone Propionate 1 spray 06/17/21 09:00 06/19/21 08:33 Fluticasone Propionate Nasal 16 [place] NOSTRIL-B 1 spray DAILY [facility] Administration Vancomycin HCl 750 mg/ Sodium 265 mls @ 265 mls/hr 06/17/21 06:00 06/19/21 08:17 Chloride IV Infused Q12H [facility] Infusion Neomycin/Polymyxin/Bacitracin 1 gm 06/19/21 12:30 06/19/21 13:15 Neomy/Polymyx/Bacit/Ointment 14 Gm Tube TOPICAL 1 gm BID [facility] Administration Pharmacy Consult 1 each 06/16/21 15:56 Consult Rx Perform Med Rec MISCELLANE ONCE PRN Consult order Pharmacy Consult 1 each 06/16/21 16:21 Consult Rx Vancomycin Dosing MISCELLANE DAILY PRN Consult order Rivaroxaban 10 mg 06/17/21 09:00 06/19/21 08:33 Rivaroxaban 10 Mg Tablet PO 10 mg DAILY NEGRO Administration Sertraline HCl 50 mg 06/16/21 20:15 06/19/21 08:33 Sertraline Hcl 50 Mg Tablet PO 50 mg DAILY [facility] Administration Sodium Chloride 3 ml 06/17/21 00:00 06/19/21 08:34 0.9 % Sodium Chloride Flush 3 Ml Syringe IVFLUSH 3 ml QSHIFT [facility] Administration Labs CBC & Chem 7: 06/17/21 06:09 06/17/21 06:09 Microbiology Microbiology Results: Microbiology 06/16/21 14:58 Blood Culture - Preliminary Blood - Venous No growth after 48 hours. 06/16/21 14:11 Blood Culture - Preliminary Blood - Venous No growth after 48 hours. Assessment and Plan (1) Cellulitis of right lower extremity: Status: Acute (2) HTN (hypertension): Status: Acute Assessment and Plan: 76M presented with rle erytehma and edema Right leg extensive cellulitis covering > 50% of the limb Associated with the chronic venous insufficiency and edema continue IV vancomycin Keep leg elevated, apply Messi wrap Local ointment reassess tomorrow for transitioning to oral meds Follow cultures HTN BP high better controlled continue Ateneolol increase Norvasc to 10 Mood disorder sertraline DVT prophylaxis - xarelto Quality Stroke Does the patient have a stroke diagnosis?: No VTE Prior VTE?: No VTE Risk Level:: Medical - moderate - high VTE Device Contraindication: Treatment Not Indicated VTE Drug Contraindication: N/A - Med Ordered
--- NOTE | 2021-06-19 14:33 | MHC.CM.PN ---
EMR REVIEWED, PER HOSPITALIST PT WILL REMAIN AN ADDITIONAL NIGHT TO CONT IV VANCOMYCIN, PT DOES REPORT FEELING BETTER AND WOULD LIKE TO D/C SOON HE CAN, PT CONT'S TO DECLINE HOME SERVICES.
[2021-06-19 15:31] VITALS: BP 164/82; PULSE 65; RESP 17; TEMP 36.6; O2SAT 97
[2021-06-19 19:29] VITALS: BP 159/77; PULSE 76; RESP 18; TEMP 35.7; O2SAT 97
[2021-06-19] MEDS: Acetaminophen 325 MG TABLET 650 MG PO (21:41)
[2021-06-20] VITALS: BP 148/70; PULSE 65; RESP 18; TEMP 36.3; O2SAT 98
[2021-06-20 03:25] VITALS: BP 174/82; PULSE 54; RESP 18; TEMP 36.3; O2SAT 96
[2021-06-20] MEDS: vancomycin HCL 750 MG in 0.9 % Sodium Chloride 250 ML 265 MG IV (05:47)
[2021-06-20 07:35] VITALS: BP 170/85; PULSE 64; RESP 19; TEMP 36.6; O2SAT 99
[2021-06-20 08:50] VITALS: BP 170/85; PULSE 64
[2021-06-20] MEDS: atenoloL 50 MG TABLET PO (08:50)
[2021-06-20 08:51] VITALS: BP 170/85; PULSE 64
[2021-06-20] MEDS: Famotidine 20 MG TABLET 40 MG PO (08:51)
[2021-06-20] MEDS: lisinopriL 5 MG TABLET PO (08:51)
[2021-06-20] MEDS: amLODIPine Besylate 10 MG TABLET PO (08:51)
[2021-06-20] MEDS: Sertraline HCL 50 MG TABLET PO (08:51)
[2021-06-20] MEDS: 0.9 % Sodium Chloride Flush 3 ML SYRINGE IVFLUSH (08:52)
[2021-06-20] MEDS: Rivaroxaban 10 MG TABLET PO (08:52)
[2021-06-20] MEDS: NeoMY/Polymyx/Bacit/Ointment 14 GM Tube TOPICAL (08:52)
[2021-06-20] MEDS: Fluticasone Propionate Nasal 16 GM SPRAY 1 SPRAY NOSTRIL-B (08:53)
[2021-06-20] MEDS: Betamethasone Dip Aug 0.05% Cr 15 GM TUBE 1 APPL TOPICAL (08:53)
[2021-06-20] MEDS: Acetaminophen 325 MG TABLET 650 MG PO (08:56)
[2021-06-20] MEDS: diphenhydrAMINE HCL 25 MG TABLET 50 MG PO (08:56)
[2021-06-20 11:45] VITALS: BP 143/80; PULSE 61; RESP 19; TEMP 36.2; O2SAT 98
--- NOTE | 2021-06-20 11:50 | PM.DS ---
DS: Providers Provider Date of Service: 06/20/21 Date of admission: 06/16/21 16:22 Primary care physician: Wesley Chao MD DS: Diagnosis Discharge Diagnosis (1) Cellulitis of right lower extremity: Status: Acute (2) HTN (hypertension): Status: Acute DS: Medications Discharge Medications Home Medications: Home Medications Medication Instructions Recorded Confirmed amlodipine 5 mg tablet 5 mg PO DAILY 06/16/21 06/16/21 atenolol 50 mg tablet 50 mg PO DAILY 06/16/21 06/16/21 betamethasone, augmented 0.05 % 1 appl TOPICAL DAILY PRN 06/16/21 06/16/21 topical cream diphenhydramine HCl 25 mg capsule 50 mg PO BID PRN 06/16/21 06/16/21 (Benadryl) famotidine 40 mg tablet 40 mg PO BID 06/16/21 06/16/21 fluticasone furoate 27.5 2 spray INTRANASAL DAILY 06/16/21 06/16/21 mcg/actuation nasal spray,suspension ibuprofen 200 mg tablet 400 mg PO BID 06/16/21 06/16/21 sertraline 50 mg tablet 50 mg PO DAILY 06/16/21 06/16/21 Previous Rx's Medication Instructions Recorded clindamycin HCl 300 mg capsule 300 mg PO Q8H #18 cap 06/20/21 lisinopril 5 mg tablet 5 mg PO DAILY 30 Days #30 tab 06/20/21 neomycin-bacitracn Zn-polymyx 3.5 1 g TOPICAL BID 7 Days #4000 g 06/20/21 mg-400 unit-5,000 unit/gram top oint (Triple Antibiotic) DS: Summary Hospital Course Hospital Course: Admission note HPI 76-year-old male presented with right lower extremity erythema and edema.? Patient states that he hit his foot on stair and scraped his leg about 2-3 weeks prior to presentation.? Since that time he has had swelling in his right lower extremity associated with erythema and pain.? Patient denies any fever chills.? Patient's urged him to seek medical care.? Denies any chest pain, shortness of breath, nausea vomiting, diarrhea. Hospital course The patient was admitted for evaluation right lower extremity erythema. Treated as cellulitis with IV antibiotics The patient reported allergy to penicillin and tetracycline he was treated mainly with vancomycin with fair response over the course of hospital stay as blood cultures remain negative and the erythema and pain decreased significantly. The patient leg kept elevated with addition of Messi wrap. Patient was able to ambulate reporting significant improvement. He was noted to elevated blood pressure readings of 180s over 80s multiple occasions. Addition of lisinopril 5 mg daily with fair response. To be prescribed at time of discharge. to be discharged home on clindamycin for 6 more days to finish total of 10 days of antibiotics and to follow-up with his primary care next week as scheduled. Advised to continue the Messi wrap at time of discharge. Time Spent with Patient Time attestation: Total time spent providing and/or coordinating discharge services: Discharge coordination time: Greater than 30 minutes Quality: Stroke Does the patient have a stroke diagnosis?: No Physical Exam Vital Signs: Vital Signs: Last Vital Signs Temp 97.1 F 06/20/21 11:45 Pulse 61 06/20/21 11:45 Resp 19 06/20/21 11:45 BP 143/80 H 06/20/21 11:45 Pulse Ox 98 06/20/21 11:45 Body Mass Index 30.6 Const: Other: Constitutional : Alert, oriented, not in distress Neck : Normal inspection, Supple Cardiovascular : RRR, S1 S2, +1 edema in the right lower extremity edema Respiratory : Good bilateral air entry, no crackles, wheezes or rhonchi Gastrointestinal: soft, lax, Normal bowel sounds, Non tender Skin : Warm, Dry, pinkish discoloration of the right lower extremity which is improving on daily basis, Messi wrap in place, no tenderness with decreased edema Neurological : Alert & oriented x3, No focal deficit DS: Data Data Completed and Pending Labs on day of discharge: Laboratory Results - last 24 hr 06/19/21 17:05 Vancomycin Trough 13.0 Preliminary micro results at discharge 06/16/21 14:58 Blood Culture - Preliminary Blood - Venous No growth after 48 hours. 06/16/21 14:11 Blood Culture - Preliminary Blood - Venous No growth after 48 hours. Discharge Plan Discharge Patient Disposition: Home Health Service Discharge Diagnosis: Cellulitis Hypertension Referrals: Wesley Chao MD [Primary Care Provider] - 1 Week Discharge Medications: New Triple Antibiotic 3.5mg-400 unit- 5,000 unit/gram Ointment 1 g topical BID 7 Days Qty: 4000 RF: 0 lisinopril 5 mg Tablet 5 mg PO DAILY 30 Days Qty: 30 RF: 0 clindamycin HCl 300 mg capsule 300 mg PO Q8H Qty: 18 RF: 0 Continued amlodipine 5 mg Tablet 5 mg PO DAILY RF: 0 atenolol 50 mg Tablet 50 mg PO DAILY RF: 0 famotidine 40 mg Tablet 40 mg PO BID RF: 0 sertraline 50 mg Tablet 50 mg PO DAILY RF: 0 fluticasone furoate 27.5 mcg/actuation [place],Suspension 2 spray INTRANASAL DAILY RF: 0 betamethasone, augmented 0.05 % Cream 1 appl TOPICAL DAILY PRN (Reason: DERMATITIS) RF: 0 diphenhydramine HCl [Benadryl] 25 mg Capsule 50 mg PO BID PRN (Reason: Allergy Symptoms) RF: 0 ibuprofen 200 mg Tablet 400 mg PO BID RF: 0 Discharge Orders: Discharge Order (Routine); Ordered 06/20/21 Ordered By: Favio Owen Diet: advance to usual diet and low salt diet Activity on Discharge: As tolerated Stand Alone Forms: Patient Portal Discharge page Other Ambulatory Orders: Basic Metabolic Panel (Routine) Timeframe: 1 Week Facility: [facility] - Location: Laboratory Ordered By: Favio Owen Care Plan Goals: Read below Health Concerns: Read below Plan of Treatment: You were admitted to the hospital for evaluation of right lower extremity rash and pain. Treated as cellulitis with IV antibiotics over the course of hospital stay with fairly good response. You were treated with leg elevation and Messi wrap as well with topical antibiotic ointment. Assessment: Continue Messi wrap and keep your leg elevated Wash the leg daily with water and soap and right well before applying the ointment Continue clindamycin for 6 more days to finish total of 10 days of antibiotics Start lisinopril 5 mg on top of her home medications and monitor your blood pressure for the next week. To follow-up with your PCP next week as planned for further evaluation and recommendations To repeat blood test next week
--- NOTE | 2021-06-20 11:57 | MHC.CM.PN ---
CM MET WITH PT TO DISCUSS DC. PT INFORMED THE MD IS RECOMMENDING [facility] AT DC. PT REPORTS HE DOES NOT FEEL HE NEEDS THE SERVICES. CM TO NOTIFY HOSPITALIST. PT WILL DC HOME TODAY WITH NO SERVICES PT WILL ARRANGE TRANSPORT SECOND IMM DELIVERED
== END 2021-06-20 14:04 | disposition home health service (06) | DRG 603 ==
LOC: HO.ED 16:02 → HO.EDOVER 16:42 → HO.S3 17:52
PROVIDERS: Admitting Provider Internal Medicine; Emergency Provider Emergency Medicine; PCP Internal Medicine Medical Oncology; Visit Provider Student in an Organized Health Care Education/Training Program
DX: L03.115 Cellulitis of right lower limb (principal); I10 Essential (primary) hypertension; F39 Unspecified mood [affective] disorder; Z20.822 Contact with and (suspected) exposure to COVID-19; Z88.0 Allergy status to penicillin; Z79.51 Long term (current) use of inhaled steroids; Z79.1 Long term (current) use of non-steroidal anti-inflammatories (NSAID); Z79.899 Other long term (current) drug therapy
CPT/HCPCS: 36415; 80048; 80053; 80202; 85025; 85652; 87040; 87635; 93971; 99218; 99284; J3370; Q0163

== ENCOUNTER 2021-07-10 09:54 | Outpatient (RCR) | payer MEDICARE, SELFPAY | END 2021-07-17 12:16 | disposition home or self-care (01) | LOC: HO.WCC 09:54 | PROVIDERS: PCP Internal Medicine Medical Oncology; Visit Provider Physician Assistant | DX: L53.9 Erythematous condition, unspecified (principal); R21 Rash and other nonspecific skin eruption; I10 Essential (primary) hypertension; Z87.891 Personal history of nicotine dependence | CPT/HCPCS: 99211 ==

== ENCOUNTER 2022-07-18 23:49 | Observation (INO) | payer MEDICARE, SELFPAY ==
--- NOTE | ~2022-07-18 | CT_ITS ---
EXAMINATION: CT ABDOMEN AND PELVIS WITHOUT CONTRAST CLINICAL INFORMATION: Diffuse abdominal pain. Vomiting. COMPARISON: 02/14/2012 TECHNIQUE: Multidetector volumetric imaging was performed from the superior aspect of the liver through the pubic symphysis. Sagittal and coronal reformatted images were obtained on the technologist's workstation. This CT examination was performed using dose optimization techniques as appropriate, variously including the following: *Automated exposure control *Adjustment of mA and/or kV according to patient size (this includes techniques or standardized protocols for targeted exams where dose is matched to indication/reason for exam; i.e. extremities or head) *Use of iterative reconstruction technique DLP: 725 mGy-cm FINDINGS: LUNG BASES: Minimal right basilar atelectasis. The visualized cardiac structures are unremarkable. Moderate hiatal hernia. LIVER, GALLBLADDER, AND BILIARY TREE: The liver is normal in size, shape, and attenuation. No focal hepatic lesion or biliary ductal dilatation is present. Small stones in the gallbladder lumen. Possible stone in the neck. No wall thickening or inflammation adjacent to the gallbladder. PANCREAS: Unremarkable. SPLEEN: Unremarkable. ADRENAL GLANDS: Unremarkable. KIDNEYS AND URETERS: The kidneys are normal in size, shape, and attenuation. No hydronephrosis, hydroureter, or calculi seen. No perinephric stranding. BLADDER: Unremarkable. GASTROINTESTINAL TRACT: Moderate hiatal hernia. Normal caliber small bowel. No obstruction. Normal diminutive appendix. No colonic wall thickening or adjacent inflammation. Liquid stool throughout much of the colon. Scattered diverticulosis without diverticulitis. No free air or free fluid. ABDOMINAL WALL: No significant hernia is appreciated. LYMPH NODES: No lymphadenopathy. 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 This was present but has progressed since 2011. VASCULAR: Normal caliber aorta with moderate atherosclerotic calcification. PELVIC VISCERA: Enlarged prostate measures 5.6 cm transverse. Calcifications in the prostate. The seminal vesicles are unremarkable. OSSEOUS STRUCTURES: No acute or suspicious osseous abnormality. CT/CT abdomen pelvis wo IV con IMPRESSION: No obstruction. No acute inflammation. Moderate hiatal hernia. Liquid stool throughout the colon. Cholelithiasis. There may be a stone in the gallbladder neck. Fleischner guidelines were followed.
--- NOTE | ~2022-07-18 | XR_ITS ---
EXAMINATION: XR CHEST CLINICAL INFORMATION: Hypothermic COMPARISON: 02/14/2011 TECHNIQUE: Frontal view of the chest was obtained. FINDINGS: The lungs are well expanded. Prominent markings at the lung bases. No dense consolidation. No pleural effusion or pneumothorax. The cardiomediastinal silhouette is unchanged. XR/XR chest 1V IMPRESSION: Prominent markings at the lung bases favor atelectasis. No dense consolidation.
[2022-07-19] VITALS (11 sets, daily range): BP systolic 94–164; BP diastolic 41–90; PULSE 68–95; RESP 16–18; TEMP 35.9–36.5; O2SAT 90–98; BMI 29.0
--- NOTE | 2022-07-19 00:17 | ECG_ITS ---
Test Reason : NAUSEA/VOMIT Blood Pressure : / mmHG Vent. Rate : 078 BPM Atrial Rate : 078 BPM P-R Int : 180 ms QRS Dur : 084 ms QT Int : 390 ms P-R-T Axes : 011 -09 025 degrees QTc Int : 444 ms Normal sinus rhythm Nonspecific T wave abnormality Abnormal ECG When compared with ECG of 14-FEB-2011 00:11, Nonspecific T wave abnormality now evident in Lateral leads Referred By: Saadia Arroyo Electronically Signed By:PEDRO DODGE
[2022-07-19 00:21] LABS: Basophils Absolute Auto 0.1 X10*3/uL (0.0-0.2); Basophils Percent Auto 0.2 % (0-2); Eosinophils Absolute Auto 0.1 X10*3/uL (0.0-0.4); Eosinophils Percent Auto 0.3 % (0-4); Hematocrit 51.8 % (42.0-52.0); Hemoglobin 18.4 g/dl (14.0-18.0); Imm Gran Abs Auto 0.12 X10*3/uL (0.00-0.03); Imm Gran Pct Auto 0.5 % (0.0-0.4); Lymphocytes Absolute Auto 0.2 X10*3/uL (1.2-4.9); Lymphocytes Percent Auto 0.8 % (20-40); MANUAL DIFF FLAG SCAN; Mean Corpuscular HGB Conc 35.5 g/dl (31.0-36.0); Mean Corpuscular Hemoglobin 31.3 pg (27.0-33.0); Mean Corpuscular Volume 88.1 fL (80.0-98.0); Mean Platelet Volume 8.9 fL (9.4-12.4); Monocytes Absolute Auto 1.1 X10*3/uL (0.1-1.2); Monocytes Percent Auto 4.5 % (2-11); Neutrophils Absolute Auto 22.7 x10*3/uL (2.0-8.3); Neutrophils Percent Auto 93.7 % (45-73); Platelet Count 372 X10*3/uL (160-400); Red Blood Count 5.88 X10*6/uL (4.60-5.80); Red Cell Distribution Width 13.2 % (11.0-16.0); SCAN SMEAR FLAG 1; White Blood Count 24.3 X10*3/uL (4.8-10.8)
--- NOTE | 2022-07-19 00:22 | ED.NAVMDI ---
HPI - Nausea/Vomiting/Diarrhea General Chief complaint: Nausea/Vomiting/Diarrhea Stated complaint: NAUSEA AND VOMITING Time Seen by Provider: 07/19/22 00:17 Source: patient Mode of arrival: ambulatory Limitations: no limitations History of Present Illness HPI Narrative: Patient comes to emergency room complaining of vomiting chills. Patient states that approximately 6 hours ago patient patient checked 45 minutes later started. Patient states that this is the 3rd time that he patient kept same place and gets nausea vomiting and diarrhea. Patient denies URI or UTI. Patient complaining of abdominal cramping especially before vomiting. Related Data Home Medications Medication Instructions Recorded Confirmed amlodipine 5 mg tablet 5 mg PO DAILY 06/16/21 06/16/21 atenolol 50 mg tablet 50 mg PO DAILY 06/16/21 06/16/21 betamethasone, augmented 0.05 % 1 appl topical DAILY PRN DERMATITIS 06/16/21 06/16/21 topical cream diphenhydramine HCl 25 mg capsule 50 mg PO BID PRN Allergy Symptoms 06/16/21 06/16/21 (Benadryl) famotidine 40 mg tablet 40 mg PO BID 06/16/21 06/16/21 fluticasone furoate 27.5 2 spray intranasal DAILY 06/16/21 06/16/21 mcg/actuation nasal spray,suspension ibuprofen 200 mg tablet 400 mg PO BID 06/16/21 06/16/21 sertraline 50 mg tablet 50 mg PO DAILY 06/16/21 06/16/21 Previous Rx's Medication Instructions Recorded clindamycin HCl 300 mg capsule 300 mg PO Q8H #18 caps 06/20/21 lisinopril 5 mg tablet 5 mg PO DAILY 30 days #30 tabs 06/20/21 neomycin-bacitracn Zn-polymyx 3.5 1 g topical BID 7 days #4,000 grams 06/20/21 mg-400 unit-5,000 unit/gram top oint (Triple Antibiotic) Allergies Allergy/AdvReac Type Severity Reaction Status Date / Time Penicillins [PENICILLINS] Allergy Unknown HIVES, Verified 06/18/21 07:50 DIARRHEA tetracycline [TETRACYCLINE] Allergy Unknown HIVES, Verified 06/18/21 07:51 DIARRHEA SEASONAL ALLERGIES Allergy Mild NASAL Uncoded 06/18/21 07:51 CONJESTIONS Review of Systems Review of Systems: Constitutional : No Weight loss, No Fever, complaining of Chills, No Night Sweats, No Fatigue, No Malaise ENT/Mouth : No Hearing loss, No Ear Pain, No Nasal Congestion, No Sinus Pain, No Hoarseness, No sore throat, No Rhinorrhea, No Swallowing Difficulty Eyes: No Eye Pain, No Swelling, No Redness, No Foreign Body, No Discharge, No Vision Changes Cardiovascular : No Chest Pain, No SOB, No Dyspnea on Exertion, No Orthopnea, No Edema, No Palpitations Respiratory : No Cough, No Sputum, No Wheezing, No Smoke Exposure, No Dyspnea Gastrointestinal : Complaining of nausea, vomiting and diarrhea, No Constipation, complaining abdominal cramping, No Hematochezia, No Melena Genitourinary : no irregular bleeding, No Dysuria, No Urinary Frequency, No Hematuria, No Urinary Incontinence, No Urgency, No Flank Pain, No Urinary Flow Changes, No Hesitancy Musculoskeletal : No joint pain, No Myalgias, No Joint Swelling Skin : No Skin Lesions, No rash Neuro : No Weakness, No Numbness, No Paresthesias, No Loss of Consciousness, No Dizziness, No Headache Psych : No Anxiety/Panic, No Depression, No SI/HI/AH/VH, No Social Issues, Heme/Lymph: No Bruising, No Bleeding,No Lymphadenopathy Endocrine : No Polyuria, No Polydipsia, No Temperature Intolerance PMFSH Past Medical History Medical History Cataract (lens) fragments in eye following cataract surgery, bilateral HTN (hypertension) Surgical History H/O eye surgery History of tonsillectomy Family History Family History Father Heart disease Social History Social History (Updated 06/16/21 @ 16:27 by Jg Mccain MD) Household Members: Family Household Members Other:: and brother Housing: House Do you presently have visiting nurse or other home services: No Alcohol intake: never Patient Tobacco Use Status: Former Tobacco user Quit Date: 1972 Second Hand Smoke Exposure: No Advance Directives: Yes Advance Directives Information Provided: Yes Advance Directives on File: No Advance Directives Date on File: 06/16/21 service: Yes Current occupational status: retired Physical Exam Vital Signs: Vital Signs: Last Vital Signs Temp 96.6 F L 07/19/22 00:43 Pulse 93 07/19/22 06:00 Resp 18 07/19/22 06:00 BP 101/73 07/19/22 06:00 Pulse Ox 96 07/19/22 06:00 O2 Del Method 07/19/22 06:00 O2 Flow Rate 2 07/19/22 02:22 BMI result Body Mass Index 29.0 Const: Other: Appearance: Alert. Oriented X3. No acute distress. Seems nauseous Eyes: Pupils equal, round and reactive to light. ENT: Pharynx normal. Neck: Normal inspection. Neck supple. No lymph nodes noted. No crepitus CVS: Normal heart rate and rhythm. Pulses normal. Normal S1 and S2 Respiratory: No respiratory distress. Breath sounds normal. No Wheezing. No rales Abdomen: Soft and nontender. No rigidity. No distention. Skin: Skin warm and dry. Normal skin color. Normal skin turgor. Extremities: No lower extremity edema. No Lacerations. No Rash Neuro: Oriented X 3. No motor deficit. No sensory deficit. Moving all extremities. No slurred speech. CN 2 through 12 grossly intact Psych: calm, cooperative, normal affect Course Course Course Narrative: Patient likely having an episode of gastroenteritis. All of patient's labs pending. Patient receiving of fluids Zofran Patient received IV fluids. Patient's lactic acid decreased to 2.3, creatinine improved to 1.75. Patient still needs more fluids. CT scan does not show any acute abnormality. Patient being admitted for PRATIBHA MDM - Nausea/Vomiting/Diarrhea Lab Data Result diagrams: 07/19/22 00:16 07/19/22 04:03 Labs: Lab Results 07/19/22 07/19/22 07/19/22 Range/Units 00:16 00:16 00:27 WBC 24.3 H (4.8-10.8) X10*3/uL RBC 5.88 H (4.60-5.80) X10*6/uL Hgb 18.4 H (14.0-18.0) g/dl Hct 51.8 (42.0-52.0) % MCV 88.1 (80.0-98.0) fL MCH 31.3 (27.0-33.0) pg MCHC 35.5 (31.0-36.0) g/dl RDW 13.2 (11.0-16.0) % Plt Count 372 (160-400) X10*3/uL MPV 8.9 L (9.4-12.4) fL Immature Gran % (Auto) 0.5 H (0.0-0.4) % Neut % (Auto) 93.7 H (45-73) % Lymph % (Auto) 0.8 L (20-40) % [place] % (Auto) 4.5 (2-11) % Eos % (Auto) 0.3 (0-4) % Baso % (Auto) 0.2 (0-2) % Lymph # (Auto) 0.2 L (1.2-4.9) X10*3/uL [place] # (Auto) 1.1 (0.1-1.2) X10*3/uL Eos # (Auto) 0.1 (0.0-0.4) X10*3/uL Baso # (Auto) 0.1 (0.0-0.2) X10*3/uL Abs Immat Gran (auto) 0.12 H (0.00-0.03) X10*3/uL Absolute Neuts (auto) 22.7 H (2.0-8.3) x10*3/uL Absolute Nucleated RBC 0.000 (0.0-0.012) X10*3/uL Nucleated RBC % (auto) 0.0 (0.0-0.2) /100WBC Smear Tech's Comments VERIFIED Sodium 144 (135-145) mmol/L Potassium 4.0 (3.3-5.1) mmol/L Chloride 101 (96-108) mmol/L Carbon Dioxide 22 (22-29) mmol/L Anion Gap 25 H (12-20) BUN 17 H (9-16) mg/dL Creatinine 2.07 H (0.5-1.4) mg/dL Estim Creat Clear Calc 37.1 Estimated GFR 31 Random Glucose 209 H D (60-115) mg/dL Lactic Acid (0.5-2.0) mmol/L Lactic Acid F/U @ 2Hr (0.5-2.0) mmol/L Calcium 10.1 D (8.4-10.2) mg/dL Total Bilirubin 1.0 (0.0-1.0) mg/dL Direct Bilirubin 0.4 (0.0-0.5) mg/dL AST 22 (5-37) U/L ALT 20 (0-40) U/L Alkaline Phosphatase 98 D (39-117) U/L Total Protein 9.2 H D (6.5-8.0) g/dL Albumin 5.1 H D (3.5-5.0) g/dL Lipase 35 (8-78) U/L Urine Color Urine Appearance Urine pH (5.0-9.0) Ur Specific [place] (1.005-1.025) Urine Protein (Neg-Trace) mg/dL Urine Glucose (UA) (Negative) mg/dL Urine Ketones (Negative) mg/dL Urine Blood (Negative) Urine Nitrite (Negative) Ur Leukocyte Esterase (Negative) Urine RBC (0-2) /HPF Urine WBC (0-5) /HPF Ur Squamous Epith Cells (0-2) /HPF Urine Bacteria (None Seen) Hyaline Casts (0-2) /LPF Granular Casts COVID-19 (FELIPE) Negative (Negative) COVID-19 Clin Com See Note 07/19/22 07/19/22 07/19/22 Range/Units 01:36 03:30 04:03 WBC (4.8-10.8) X10*3/uL RBC (4.60-5.80) X10*6/uL Hgb (14.0-18.0) g/dl Hct (42.0-52.0) % MCV (80.0-98.0) fL MCH (27.0-33.0) pg MCHC (31.0-36.0) g/dl RDW (11.0-16.0) % Plt Count (160-400) X10*3/uL MPV (9.4-12.4) fL Immature Gran % (Auto) (0.0-0.4) % Neut % (Auto) (45-73) % Lymph % (Auto) (20-40) % [place] % (Auto) (2-11) % Eos % (Auto) (0-4) % Baso % (Auto) (0-2) % Lymph # (Auto) (1.2-4.9) X10*3/uL [place] # (Auto) (0.1-1.2) X10*3/uL Eos # (Auto) (0.0-0.4) X10*3/uL Baso # (Auto) (0.0-0.2) X10*3/uL Abs Immat Gran (auto) (0.00-0.03) X10*3/uL Absolute Neuts (auto) (2.0-8.3) x10*3/uL Absolute Nucleated RBC (0.0-0.012) X10*3/uL Nucleated RBC % (auto) (0.0-0.2) /100WBC Smear Tech's Comments Sodium 142 (135-145) mmol/L Potassium 3.8 (3.3-5.1) mmol/L Chloride 107 (96-108) mmol/L Carbon Dioxide 20 L (22-29) mmol/L Anion Gap 19 (12-20) BUN 19 H (9-16) mg/dL Creatinine 1.75 H (0.5-1.4) mg/dL Estim Creat Clear Calc 43.9 Estimated GFR 38 Random Glucose 149 H (60-115) mg/dL Lactic Acid 4.1 H* (0.5-2.0) mmol/L Lactic Acid F/U @ 2Hr (0.5-2.0) mmol/L Calcium 8.8 D (8.4-10.2) mg/dL Total Bilirubin (0.0-1.0) mg/dL Direct Bilirubin (0.0-0.5) mg/dL AST (5-37) U/L ALT (0-40) U/L Alkaline Phosphatase (39-117) U/L Total Protein (6.5-8.0) g/dL Albumin (3.5-5.0) g/dL Lipase (8-78) U/L Urine Color Yellow Urine Appearance Clear Urine pH 6.5 (5.0-9.0) Ur Specific [place] 1.010 (1.005-1.025) Urine Protein 30 (1+) H (Neg-Trace) mg/dL Urine Glucose (UA) Negative (Negative) mg/dL Urine Ketones Negative (Negative) mg/dL Urine Blood Negative (Negative) Urine Nitrite Negative (Negative) Ur Leukocyte Esterase Trace H (Negative) Urine RBC 0-2 (0-2) /HPF Urine WBC 0-5 (0-5) /HPF Ur Squamous Epith Cells 0-2 (0-2) /HPF Urine Bacteria None Seen (None Seen) Hyaline Casts 6-10 (0-2) /LPF Granular Casts Present COVID-19 (FELIPE) (Negative) COVID-19 Clin Com 07/19/22 Range/Units 04:03 WBC (4.8-10.8) X10*3/uL RBC (4.60-5.80) X10*6/uL Hgb (14.0-18.0) g/dl Hct (42.0-52.0) % MCV (80.0-98.0) fL MCH (27.0-33.0) pg MCHC (31.0-36.0) g/dl RDW (11.0-16.0) % Plt Count (160-400) X10*3/uL MPV (9.4-12.4) fL Immature Gran % (Auto) (0.0-0.4) % Neut % (Auto) (45-73) % Lymph % (Auto) (20-40) % [place] % (Auto) (2-11) % Eos % (Auto) (0-4) % Baso % (Auto) (0-2) % Lymph # (Auto) (1.2-4.9) X10*3/uL [place] # (Auto) (0.1-1.2) X10*3/uL Eos # (Auto) (0.0-0.4) X10*3/uL Baso # (Auto) (0.0-0.2) X10*3/uL Abs Immat Gran (auto) (0.00-0.03) X10*3/uL Absolute Neuts (auto) (2.0-8.3) x10*3/uL Absolute Nucleated RBC (0.0-0.012) X10*3/uL Nucleated RBC % (auto) (0.0-0.2) /100WBC Smear Tech's Comments Sodium (135-145) mmol/L Potassium (3.3-5.1) mmol/L Chloride (96-108) mmol/L Carbon Dioxide (22-29) mmol/L Anion Gap (12-20) BUN (9-16) mg/dL Creatinine (0.5-1.4) mg/dL Estim Creat Clear Calc Estimated GFR Random Glucose (60-115) mg/dL Lactic Acid (0.5-2.0) mmol/L Lactic Acid F/U @ 2Hr 2.3 H* (0.5-2.0) mmol/L Calcium (8.4-10.2) mg/dL Total Bilirubin (0.0-1.0) mg/dL Direct Bilirubin (0.0-0.5) mg/dL AST (5-37) U/L ALT (0-40) U/L Alkaline Phosphatase (39-117) U/L Total Protein (6.5-8.0) g/dL Albumin (3.5-5.0) g/dL Lipase (8-78) U/L Urine Color Urine Appearance Urine pH (5.0-9.0) Ur Specific [place] (1.005-1.025) Urine Protein (Neg-Trace) mg/dL Urine Glucose (UA) (Negative) mg/dL Urine Ketones (Negative) mg/dL Urine Blood (Negative) Urine Nitrite (Negative) Ur Leukocyte Esterase (Negative) Urine RBC (0-2) /HPF Urine WBC (0-5) /HPF Ur Squamous Epith Cells (0-2) /HPF Urine Bacteria (None Seen) Hyaline Casts (0-2) /LPF Granular Casts COVID-19 (FELIPE) (Negative) COVID-19 Clin Com Imaging Data CT scan - abdomen: Radiologist's impression: FINDINGS: LUNG BASES: Minimal right basilar atelectasis. The visualized cardiac structures are unremarkable. Moderate hiatal hernia.? LIVER, GALLBLADDER, AND BILIARY TREE: The liver is normal in size, shape, and attenuation. No focal hepatic lesion or biliary ductal dilatation is present. Small stones in the gallbladder lumen. Possible stone in the neck. No wall thickening or inflammation adjacent to the gallbladder.? PANCREAS: Unremarkable.? SPLEEN: Unremarkable.? ADRENAL GLANDS: Unremarkable.? KIDNEYS AND URETERS: The kidneys are normal in size, shape, and attenuation. No hydronephrosis, hydroureter, or calculi seen. No perinephric stranding. ? BLADDER: Unremarkable.? GASTROINTESTINAL TRACT: Moderate hiatal hernia. Normal caliber small bowel. No obstruction. Normal diminutive appendix. No colonic wall thickening or adjacent inflammation. Liquid stool throughout much of the colon. Scattered diverticulosis without diverticulitis. No free air or free fluid.? ABDOMINAL WALL: No significant hernia is appreciated.? LYMPH NODES: No lymphadenopathy. 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 This was present but has progressed since 2012. VASCULAR: Normal caliber aorta with moderate atherosclerotic calcification. PELVIC VISCERA: Enlarged prostate measures 5.6 cm transverse. Calcifications in the prostate. The seminal vesicles are unremarkable. OSSEOUS STRUCTURES: No acute or suspicious osseous abnormality.? CT/CT abdomen pelvis wo IV con IMPRESSION: No obstruction. No acute inflammation. Moderate hiatal hernia. Liquid stool throughout the colon. ? Cholelithiasis. There may be a stone in the gallbladder neck.? ? Fleischner guidelines were followed. Dictated By: Gage Duffy MD Signed By: <Electronically signed by Gage Duffy MD in OV> 07/19/22 0305 Critical Care Time Critical Care Time Critical Care Time: Yes Total Critical Care Time: 30 Attestation: I have personally provided critical care time. Time includes review of lab data, radiology results, discussion with consultants, and monitoring for potential decompensation. Intervention performed as documented. Discharge Plan Discharge Clinical Impression: Dehydration, PRATIBHA (acute kidney injury) Patient Disposition: Admitted As Inpatient
[2022-07-19 00:43] LABS: Alanine Aminotransferase 20 U/L (0-40); Albumin Level 5.1 g/dL (3.5-5.0); Alkaline Phosphatase 98 U/L (39-117); Anion Gap 25 (12-20); Aspartate Amino Transferase 22 U/L (5-37); Bilirubin Direct 0.4 mg/dL (0.0-0.5); Blood Urea Nitrogen 17 mg/dL (9-16); Calcium 10.1 mg/dL (8.4-10.2); Carbon Dioxide 22 mmol/L (22-29); Chloride 101 mmol/L (96-108); Creatinine Clr Calc Pharmacy 37.1; Estimated Glomerular Filt Rate 31; Glucose Random 209 mg/dL (60-115); Lipase 35 U/L (8-78); SLIDE REVIEW VERIFIED; Sodium 144 mmol/L (135-145); Total Protein 9.2 g/dL (6.5-8.0)
[2022-07-19] MEDS: ondansetron HCL 4 MG/2 ML VIAL IVPUSH (01:02)
[2022-07-19] MEDS: 0.9 % Sodium Chloride 2,000 ML 999 ML IVCONT (01:02)
[2022-07-19 01:03] LABS: COVID-19 Test Negative (Negative); IDNOW Serial# 55D5AD1C
[2022-07-19 01:58] LABS: Lactic Acid 4.1 mmol/L (0.5-2.0)
[2022-07-19 03:37] LABS: Appearance Urine Clear; Color Urine Yellow; Glucose Urine UA Negative (Negative); Leukocyte Esterase Urine Trace (Negative); Nitrite Urine Negative (Negative); PH 6.5 (5.0-9.0); UMIC TRIGGER UACC YES; Urine Blood Negative (Negative); Urine Ketones Negative (Negative); Urine Protein 30 (1+) mg/dL (Neg-Trace)
[2022-07-19 03:42] LABS: Reflex Lactate? Lactic Acid Added
[2022-07-19 03:51] LABS: Bacteria Urine None Seen (None Seen); Granular Casts Urine Present; RBC Urine 0-2 /HPF (0-2); Squamous Epithelial Cell Urine 0-2 /HPF (0-2); WBC Urine 0-5 /HPF (0-5)
[2022-07-19 04:26] LABS: ~Lactic Acid-LAB USE ONLY 2.3 mmol/L (0.5-2.0)
[2022-07-19 04:35] LABS: Anion Gap 19 (12-20); Blood Urea Nitrogen 19 mg/dL (9-16); Calcium 8.8 mg/dL (8.4-10.2); Carbon Dioxide 20 mmol/L (22-29); Chloride 107 mmol/L (96-108); Creatinine Clr Calc Pharmacy 43.9; Estimated Glomerular Filt Rate 38; Glucose Random 149 mg/dL (60-115); Potassium 3.8 mmol/L (3.3-5.1); Sodium 142 mmol/L (135-145)
[2022-07-19 06:07] LABS: Reflex Lactate? 2 Y
--- NOTE | 2022-07-19 06:39 | P.HPHOSP_ITS ---
History of Present Illness Date of Service: 07/19/22 Chief Complaint: nausea vomiting diarrhea this 77-year-old male with past medical history of hypertension, as well as acid reflux presents to the hospital with complaints of nausea vomiting diarrhea after ingesting fish. Patient reports that this is the 3rd episode within the past 10 years that after ingesting fish she becomes very ill. He had fish and chips the day prior, several hours later he started having bilious nausea and vomiting. As well as diarrhea. Nonbloody. Patient reports that he also has been feeling lightheaded as a result. He feels feverish and has chills. He denies any chest pain, no shortness of breath, denies any urinary symptoms. He has chronic lower extremity edema with no significant swelling today. He has no numbness tingling. On arrival to the ED patient hemodynamically stable with no significant abnormal vitals Labs are significant for WBC count 24.3, hemoglobin of 18.4, anion gap of 25, BUN of 17, creatinine of 2.07 with a baseline of around 1, lactic acid of 4.1, UA positive for leukocyte Estrace with minimal WBC, abdomen pelvic CT shows no obstruction, no acute inflammation, moderate hiatal hernia, liquid stool throughout the colon. Cholelithiasis with a stone in the gallbladder neck given the PRATIBHA patient started on IV fluids and will be admitted for further management Review of Systems Review of Systems: Yes all other systems are reviewed and are negative [facility] Medical History Acid reflux Cataract (lens) fragments in eye following cataract surgery, bilateral HTN (hypertension) Family History Father Heart disease Surgical History H/O eye surgery History of tonsillectomy Social History Household Members: Family Household Members Other:: and brother Housing: House Do you presently have visiting nurse or other home services: No Alcohol intake: never Patient Tobacco Use Status: Former Tobacco user Quit Date: 1972 Second Hand Smoke Exposure: No Advance Directives: Yes Advance Directives Information Provided: Yes Advance Directives on File: No Advance Directives Date on File: 06/16/21 service: Yes Current occupational status: retired Meds Allergies Allergy/AdvReac Type Severity Reaction Status Date / Time Penicillins [PENICILLINS] Allergy Unknown HIVES, Verified 06/18/21 07:50 DIARRHEA tetracycline [TETRACYCLINE] Allergy Unknown HIVES, Verified 06/18/21 07:51 DIARRHEA SEASONAL ALLERGIES Allergy Mild NASAL Uncoded 06/18/21 07:51 CONJESTIONS Home Medications Medication Instructions Recorded Confirmed Last Taken Type amlodipine 5 mg tablet 5 mg PO DAILY 06/16/21 06/16/21 06/16/21 History atenolol 50 mg tablet 50 mg PO DAILY 06/16/21 06/16/21 06/16/21 History betamethasone, augmented 0.05 % 1 appl topical DAILY PRN DERMATITIS 06/16/21 06/16/21 Unknown History topical cream diphenhydramine HCl 25 mg capsule 50 mg PO BID PRN Allergy Symptoms 06/16/21 06/16/21 Unknown History (Benadryl) famotidine 40 mg tablet 40 mg PO BID 06/16/21 06/16/21 06/16/21 History fluticasone furoate 27.5 2 spray intranasal DAILY 06/16/21 06/16/21 Unknown History mcg/actuation nasal spray,suspension ibuprofen 200 mg tablet 400 mg PO BID 06/16/21 06/16/21 Unknown History sertraline 50 mg tablet 50 mg PO DAILY 06/16/21 06/16/21 06/16/21 History Physical Exam Vital Signs and Narrative: Vital Signs: Last Vital Signs Temp 96.6 F L 07/19/22 00:43 Pulse 93 07/19/22 06:00 Resp 18 07/19/22 06:00 BP 101/73 07/19/22 06:00 Pulse Ox 96 07/19/22 06:00 O2 Del Method 07/19/22 06:00 O2 Flow Rate 2 07/19/22 02:22 BMI result Body Mass Index 29.0 Const: Other: patient is sitting up in bed reports due to the nausea, no distress General: cooperative and no acute distress Orientation/consciousness: patient oriented x3 Eyes: General: appearance normal, both eyes and all related structures Resp: Effort & Inspection: normal respiratory effort Auscultation: clear to auscultation bilaterally Cardio: Rate: regular rate Rhythm: regular rhythm GI: Other: no abdominal tenderness, no rebound or guarding Palpation (GI): Soft to palpation Auscultation: normal bowel sounds Skin: General skin exam: no rashes or lesions noted Neuro: General: patient oriented x3 Cognition (Neuro): normal cognition Extrem: General: Yes normal to inspection and Yes no pedal edema Results Labs CBC and Chem 7: 07/19/22 00:16 07/19/22 04:03 Labs: Laboratory Results - last 24 hr 07/19/22 07/19/22 07/19/22 00:16 00:16 00:27 MCV 88.1 MCH 31.3 MCHC 35.5 RDW 13.2 Plt Count 372 MPV 8.9 L Immature Gran % (Auto) 0.5 H Neut % (Auto) 93.7 H Lymph % (Auto) 0.8 L [place] % (Auto) 4.5 Eos % (Auto) 0.3 Baso % (Auto) 0.2 Lymph # (Auto) 0.2 L [place] # (Auto) 1.1 Eos # (Auto) 0.1 Baso # (Auto) 0.1 Abs Immat Gran (auto) 0.12 H Absolute Neuts (auto) 22.7 H Absolute Nucleated RBC 0.000 Nucleated RBC % (auto) 0.0 Smear Tech's Comments VERIFIED Anion Gap 25 H Estim Creat Clear Calc 37.1 Estimated GFR 31 Random Glucose 209 H D Lactic Acid Lactic Acid F/U @ 2Hr Calcium 10.1 D Total Bilirubin 1.0 Direct Bilirubin 0.4 AST 22 ALT 20 Alkaline Phosphatase 98 D Total Protein 9.2 H D Albumin 5.1 H D Lipase 35 Urine Color Urine Appearance Urine pH Ur Specific [place] Urine Protein Urine Glucose (UA) Urine Ketones Urine Blood Urine Nitrite Ur Leukocyte Esterase Urine RBC Urine WBC Ur Squamous Epith Cells Urine Bacteria Hyaline Casts Granular Casts COVID-19 (FELIPE) Negative COVID-19 Clin Com See Note 07/19/22 07/19/22 07/19/22 01:36 03:30 04:03 MCV MCH MCHC RDW Plt Count MPV Immature Gran % (Auto) Neut % (Auto) Lymph % (Auto) [place] % (Auto) Eos % (Auto) Baso % (Auto) Lymph # (Auto) [place] # (Auto) Eos # (Auto) Baso # (Auto) Abs Immat Gran (auto) Absolute Neuts (auto) Absolute Nucleated RBC Nucleated RBC % (auto) Smear Tech's Comments Anion Gap 19 Estim Creat Clear Calc 43.9 Estimated GFR 38 Random Glucose 149 H Lactic Acid 4.1 H* Lactic Acid F/U @ 2Hr Calcium 8.8 D Total Bilirubin Direct Bilirubin AST ALT Alkaline Phosphatase Total Protein Albumin Lipase Urine Color Yellow Urine Appearance Clear Urine pH 6.5 Ur Specific [place] 1.010 Urine Protein 30 (1+) H Urine Glucose (UA) Negative Urine Ketones Negative Urine Blood Negative Urine Nitrite Negative Ur Leukocyte Esterase Trace H Urine RBC 0-2 Urine WBC 0-5 Ur Squamous Epith Cells 0-2 Urine Bacteria None Seen Hyaline Casts 6-10 Granular Casts Present COVID-19 (FELIPE) COVID-19 Clin Com 07/19/22 04:03 MCV MCH MCHC RDW Plt Count MPV Immature Gran % (Auto) Neut % (Auto) Lymph % (Auto) [place] % (Auto) Eos % (Auto) Baso % (Auto) Lymph # (Auto) [place] # (Auto) Eos # (Auto) Baso # (Auto) Abs Immat Gran (auto) Absolute Neuts (auto) Absolute Nucleated RBC Nucleated RBC % (auto) Smear Tech's Comments Anion Gap Estim Creat Clear Calc Estimated GFR Random Glucose Lactic Acid Lactic Acid F/U @ 2Hr 2.3 H* Calcium Total Bilirubin Direct Bilirubin AST ALT Alkaline Phosphatase Total Protein Albumin Lipase Urine Color Urine Appearance Urine pH Ur Specific [place] Urine Protein Urine Glucose (UA) Urine Ketones Urine Blood Urine Nitrite Ur Leukocyte Esterase Urine RBC Urine WBC Ur Squamous Epith Cells Urine Bacteria Hyaline Casts Granular Casts COVID-19 (FELIPE) COVID-19 Clin Com Imaging Radiologist's Impressions: Impressions Chest X-Ray 07/19/22 01:10 IMPRESSION: Prominent markings at the lung bases favor atelectasis. No dense consolidation. Abdomen/Pelvis CT 07/19/22 02:50 IMPRESSION: No obstruction. No acute inflammation. Moderate hiatal hernia. Liquid stool throughout the colon. Cholelithiasis. There may be a stone in the gallbladder neck. Fleischner guidelines were followed. Assessment and Plan (1) PRATIBHA (acute kidney injury): Status: Acute (2) Dehydration: Status: Acute (3) Nausea vomiting and diarrhea: Status: Acute (4) Enteritis: Status: Acute (5) Fish allergy: Status: Acute (6) Lactic acidosis: Status: Acute Plan this is a 77-year-old male with past medical history of hypertension presents to the hospital with nausea vomiting diarrhea after ingesting fish # PRATIBHA - secondary to dehydration in the setting of severe nausea vomiting - will treat with IV fluids, follow daily BMP # enteritis - although bacterial/viral infection is possible, this appears to be associated with ingesting fish each time - at this time will treat with supportive measures, IV fluids # nausea vomiting and diarrhea - antiemetics, IV fluids, supportive care - recommended to avoid fish in the future completely as this is his 3rd time with similar episode after ingesting fresh # lactic acidosis - likely secondary to dehydration - improving - continue IV fluids # hypertension - stable - continue antihypertensives # acid reflex - continue famotidine DVT prophylaxis: SCDs /early ambulation Quality Stroke Does the patient have a stroke diagnosis?: No VTE Prior VTE?: No VTE Risk Level:: Medical - low VTE Device Contraindication: N/A - Device Ordered VTE Drug Contraindication: Treatment Not Indicated
[2022-07-19] MEDS: Lactated Ringers 1,000 ML 100 ML IVCONT ×2 (07:13→23:27)
[2022-07-19] MEDS: 0.9 % Sodium Chloride Flush 3 ML SYRINGE IVFLUSH ×2 (07:14→21:45)
--- NOTE | 2022-07-19 07:48 | PHA.MEDREC ---
Pharmacy Consult ? Medication Reconciliation Pharmacy has completed the medication reconciliation. Patient was an excellent historian.
--- NOTE | 2022-07-19 12:30 | PM.EVENT ---
Event Note Date of Service: 07/19/22 Event Note: 77-year-old male with past medical history of hypertension presents to the hospital with nausea vomiting diarrhea after ingesting fish PRATIBHA. Secondary to dehydration in the setting of vomiting and diarrhea Treated with IV fluids Slowly resolving Enteritis with vomiting and diarrhea. Likely secondary to ingestion of fish Has had similar symptoms in the past after consuming fish Continue IV fluids, supportive care Leukocytosis. Secondary to vomiting Continue IV fluids Monitor CBC Lactic acidosis. Submitted to dehydration and vomiting Treated with IV fluids Hypertension. Blood pressure on the lower side Will hold off on antihypertensives for now Mental health Continue home medications GERD Continue famotidine DVT prophylaxis with heparin Attending Dr. Cabral Full code
[2022-07-19] MEDS: Heparin Sodium,Porcine 5,000 UNIT/ML VIAL 5000 UNIT SUBCUT ×2 (12:55→23:57)
[2022-07-19] MEDS: Famotidine 20 MG TABLET 40 MG PO (21:44)
[2022-07-20 06:23] VITALS: BP 147/79; PULSE 71; RESP 19; TEMP 36.8; O2SAT 96
[2022-07-20 07:26] LABS: Basophils Percent Auto 0.2 % (0-2); Eosinophils Absolute Auto 0.3 X10*3/uL (0.0-0.4); Eosinophils Percent Auto 2.1 % (0-4); Hematocrit 37.7 % (42.0-52.0); Hemoglobin 13.4 g/dl (14.0-18.0); Imm Gran Abs Auto 0.04 X10*3/uL (0.00-0.03); Imm Gran Pct Auto 0.3 % (0.0-0.4); Lymphocytes Absolute Auto 1.9 X10*3/uL (1.2-4.9); Lymphocytes Percent Auto 13.8 % (20-40); MANUAL DIFF FLAG NO; Mean Corpuscular HGB Conc 35.5 g/dl (31.0-36.0); Mean Corpuscular Hemoglobin 31.7 pg (27.0-33.0); Mean Corpuscular Volume 89.1 fL (80.0-98.0); Mean Platelet Volume 9.9 fL (9.4-12.4); Monocytes Percent Auto 7.2 % (2-11); Neutrophils Absolute Auto 10.6 x10*3/uL (2.0-8.3); Neutrophils Percent Auto 76.4 % (45-73); Platelet Count 275 X10*3/uL (160-400); Red Blood Count 4.23 X10*6/uL (4.60-5.80); Red Cell Distribution Width 13.2 % (11.0-16.0); White Blood Count 13.8 X10*3/uL (4.8-10.8)
[2022-07-20 07:44] LABS: Anion Gap 15 (12-20); Blood Urea Nitrogen 27 mg/dL (9-16); Calcium 8.7 mg/dL (8.4-10.2); Carbon Dioxide 25 mmol/L (22-29); Chloride 104 mmol/L (96-108); Creatinine Clr Calc Pharmacy 52.2; Estimated Glomerular Filt Rate 46; Glucose Random 88 mg/dL (60-115); Potassium 3.5 mmol/L (3.3-5.1); Sodium 140 mmol/L (135-145)
[2022-07-20] MEDS: Sertraline HCL 50 MG TABLET PO (09:48)
[2022-07-20] MEDS: amLODIPine Besylate 5 MG TABLET PO (09:49)
[2022-07-20] MEDS: 0.9 % Sodium Chloride Flush 3 ML SYRINGE IVFLUSH (09:49)
[2022-07-20] MEDS: Famotidine 20 MG TABLET 40 MG PO (09:49)
[2022-07-20] MEDS: atenoloL 50 MG TABLET PO (09:49)
[2022-07-20] MEDS: Lactated Ringers 1,000 ML 100 ML IVCONT (09:53)
[2022-07-20 11:33] VITALS: BP 131/86; PULSE 86; RESP 18; O2SAT 96
--- NOTE | 2022-07-20 12:03 | MHC.CM.PN ---
met with pt in ed pt lives with he drives and is independent dc plan home no servceis pt is amelia vax x 3
[2022-07-20] MEDS: Heparin Sodium,Porcine 5,000 UNIT/ML VIAL 5000 UNIT SUBCUT (12:13)
--- NOTE | 2022-07-20 13:19 | PM.DS ---
DS: Providers Provider Date of Service: 07/20/22 Date of admission: 07/19/22 06:37 Primary care physician: Unknown Physician Attending physician on discharge: Krishna Cabral Discharging clinician: Lea Mckeon DS: Diagnosis Discharge Diagnosis (1) PRATIBHA (acute kidney injury): Status: Acute (2) Dehydration: Status: Acute (3) Nausea vomiting and diarrhea: Status: Acute (4) Enteritis: Status: Acute (5) Fish allergy: Status: Acute (6) Lactic acidosis: Status: Acute DS: Summary Hospital Course Hospital Course: HP as per admitting provider this 77-year-old male with past medical history of hypertension, as well as? acid reflux presents to the hospital with complaints of nausea vomiting diarrhea after ingesting fish.? Patient reports that this is the 3rd episode within the past 10 years that after ingesting fish she becomes very ill.? He had fish and chips the day prior, several hours later he started having bilious nausea and vomiting.? As well as diarrhea.? Nonbloody.? Patient reports that he also has been feeling lightheaded as a result.? He feels feverish and has chills.? He denies any chest pain, no shortness of breath, denies any urinary symptoms.? He has chronic lower extremity edema with no significant swelling today.? He has no numbness tingling.?On arrival to the ED patient hemodynamically stable with no significant abnormal vitals Labs are significant for WBC count 24.3, hemoglobin of 18.4, anion gap of 25, BUN of 17, creatinine of 2.07 with a baseline of around 1, lactic acid of 4.1, UA positive for leukocyte Estrace with minimal WBC, abdomen pelvic CT shows no obstruction, no acute inflammation, moderate hiatal hernia, liquid stool throughout the colon.? Cholelithiasis with a stone in the gallbladder neck given the PRATIBHA patient started on IV fluids and will be admitted for further management . PRATIBHA.? Secondary to dehydration in the setting of vomiting and diarrhea Resolving Treated with IV fluids Check BMP in 2 days Enteritis with vomiting and diarrhea.? Likely secondary to ingestion of fish. Resolved Has had similar symptoms in the past after consuming fish Treated with IV fluids Leukocytosis.? Secondary to vomiting Trended down significantly Lactic acidosis.? Secondary to dehydration and vomiting Treated with IV fluids Hypertension.? Blood pressure remained on lower side during hospitalization but trended up May resume blood pressure medications Mental health Continue home medications GERD Continue famotidine Time Spent with Patient Time attestation: Total time spent providing and/or coordinating discharge services: Discharge coordination time: Greater than 30 minutes Quality: Safe Use of Opioids Does Pt have an Active Cancer Diagnosis on the Problem List?: No Quality: Stroke Does the patient have a stroke diagnosis?: No Physical Exam Vital Signs: Vital Signs: Last Vital Signs Temp 98.2 F 07/20/22 06:23 Pulse 86 07/20/22 11:33 Resp 18 07/20/22 11:33 BP 131/86 07/20/22 11:33 Pulse Ox 96 07/20/22 11:33 O2 Del Method 07/20/22 11:33 O2 Flow Rate 2 07/19/22 02:22 BMI result Body Mass Index 29.0 Appearing in no acute distress head is normocephalic atraumatic eyes pupils are PERRLA sclera is anicteric mouth throat mucous membranes are intact and moist neck is supple no lymphadenopathy, no JVD noted lung sounds are clear to auscultation heart regular rate rhythm, clear S1, S2 positive bowel sounds, abdomen is soft, nontender neuro patient is alert x3, no focal deficits DS: Data Data Completed and Pending Labs on day of discharge: Laboratory Results - last 24 hr 07/20/22 07/20/22 06:39 06:39 WBC 13.8 H RBC 4.23 L D Hgb 13.4 L D Hct 37.7 L D MCV 89.1 MCH 31.7 MCHC 35.5 RDW 13.2 Plt Count 275 D MPV 9.9 Immature Gran % (Auto) 0.3 Neut % (Auto) 76.4 H Lymph % (Auto) 13.8 L [place] % (Auto) 7.2 Eos % (Auto) 2.1 Baso % (Auto) 0.2 Lymph # (Auto) 1.9 [place] # (Auto) 1.0 Eos # (Auto) 0.3 Baso # (Auto) 0.0 Abs Immat Gran (auto) 0.04 H Absolute Neuts (auto) 10.6 H Absolute Nucleated RBC 0.000 Nucleated RBC % (auto) 0.0 Sodium 140 Potassium 3.5 Chloride 104 Carbon Dioxide 25 Anion Gap 15 BUN 27 H Creatinine 1.47 H Estim Creat Clear Calc 52.2 Estimated GFR 46 Random Glucose 88 D Calcium 8.7 Preliminary micro results at discharge 07/19/22 01:41 Blood Culture - Preliminary Blood - Venous No growth after 24 hours. 07/19/22 01:37 Blood Culture - Preliminary Blood - Venous No growth after 24 hours. Discharge Plan Discharge Anticipated Discharge Date/Time: 07/20/22 13:13 Patient Disposition: Home, Self-Care Discharge Diagnosis: Enteritis PRATIBHA Referrals: Wesley Chao MD [Physician] - 1 Week Discharge Medications: Continued amlodipine 5 mg Tablet 5 mg PO DAILY atenolol 50 mg Tablet 50 mg PO DAILY famotidine 40 mg Tablet 40 mg PO BID sertraline 50 mg Tablet 50 mg PO DAILY betamethasone, augmented 0.05 % Cream 1 appl TOPICAL DAILY PRN (Reason: DERMATITIS) Protocol: Apply to: Apply to: AFFECTED AREAS diphenhydramine HCl [Benadryl] 25 mg Capsule 50 mg PO BID PRN (Reason: Allergy Symptoms) ibuprofen 200 mg Tablet 400 mg PO BID acetaminophen 325 mg Tablet 325 mg PO QID PRN (Reason: PAIN) Discharge Orders: Discharge Order (Routine); Ordered 07/20/22 Ordered By: Lea Mckeon Diet: Baldwin diet for few days Activity on Discharge: As tolerated Stand Alone Forms: Patient Portal Discharge page Other Ambulatory Orders: Basic Metabolic Panel (Routine) Timeframe: [id number] Facility: [facility] - Location: Laboratory Ordered By: Lea Mckeon Care Plan Goals: Complete resolution of symptoms Health Concerns: Enteritis PRATIBHA Plan of Treatment: Follow-up with primary care provider as needed Choose bland foods for the next couple of days Avoid Ibuprofen until after you check your labs as it may cause worsening renal function Assessment: See discharge summary
--- NOTE | 2022-07-20 13:28 | MHC.CM.PN ---
pt dcd home no skilled services ordered by
--- NOTE | 2022-07-20 13:48 | PC.NURSE ---
Alert and orientted. Denies pain, VSS, afebrile, no acute resp. distress noted. Took all schedule meds as ordered. New order to discharge patient home. Went over discharge paper work, follow up apt/lab, and medication administrations. Refused w[facility]c [facility] with his .
== END 2022-07-20 13:51 | disposition home or self-care (01) ==
LOC: HO.ED 07-19 05:40 → HO.EDOVER 07-19 06:45
PROVIDERS: Admitting Provider Internal Medicine; Emergency Provider Emergency Medicine; PCP Internal Medicine Medical Oncology; Visit Provider Nurse Practitioner Acute Care
DX: N17.9 Acute kidney failure, unspecified (principal); E86.0 Dehydration; K52.9 Noninfective gastroenteritis and colitis, unspecified; E87.2 Acidosis; R11.2 Nausea with vomiting, unspecified; Z91.013 Allergy to seafood; Z20.822 Contact with and (suspected) exposure to COVID-19; K44.9 Diaphragmatic hernia without obstruction or gangrene; K80.20 Calculus of gallbladder without cholecystitis without obstruction; I10 Essential (primary) hypertension; K21.9 Gastro-esophageal reflux disease without esophagitis; Z87.891 Personal history of nicotine dependence; Z79.899 Other long term (current) drug therapy
CPT/HCPCS: 36415; 71045; 74176; 80048; 80076; 81001; 83605; 83690; 85025; 87040; 87635; 93005; 96361; 96372; 96374; 99218; 99285; J2405

== ENCOUNTER 2023-06-15 09:50 | Outpatient (REF) | payer MEDICARE, SELFPAY ==
[2023-06-15 10:07] LABS: MANUAL DIFF FLAG NO
[2023-06-15 10:41] LABS: Basophils Absolute Auto 0.1 X10*3/uL (0.0-0.2); Basophils Percent Auto 0.7 % (0-2); Eosinophils Absolute Auto 0.3 X10*3/uL (0.0-0.4); Eosinophils Percent Auto 2.7 % (0-4); Hematocrit 43.2 % (42.0-52.0); Hemoglobin 15.4 g/dl (14.0-18.0); Imm Gran Abs Auto 0.05 X10*3/uL (0.00-0.03); Imm Gran Pct Auto 0.5 % (0.0-0.4); Lymphocytes Absolute Auto 1.6 X10*3/uL (1.2-4.9); Lymphocytes Percent Auto 15.6 % (20-40); Mean Corpuscular HGB Conc 35.6 g/dl (31.0-36.0); Mean Corpuscular Volume 87.1 fL (80.0-98.0); Monocytes Absolute Auto 0.8 X10*3/uL (0.1-1.2); Monocytes Percent Auto 7.5 % (2-11); Neutrophils Absolute Auto 7.6 x10*3/uL (2.0-8.3); Platelet Count 322 X10*3/uL (160-400); Red Blood Count 4.96 X10*6/uL (4.60-5.80); Red Cell Distribution Width 13.4 % (11.0-16.0); White Blood Count 10.4 X10*3/uL (4.8-10.8)
[2023-06-15 11:14] LABS: Alanine Aminotransferase 12 U/L (0-40); Albumin Level 4.1 g/dL (3.5-5.0); Alkaline Phosphatase 89 U/L (39-117); Anion Gap 11 (12-20); Aspartate Amino Transferase 16 U/L (5-37); Blood Urea Nitrogen 11 mg/dL (9-16); Calcium 9.4 mg/dL (8.4-10.2); Carbon Dioxide 27 mmol/L (22-29); Chloride 104 mmol/L (96-108); Cholesterol 161 mg/dL (<200); Estimated Glomerular Filt Rate > 60; Glucose Fasting 113 mg/dL (60-99); HDL Cholesterol 42 mg/dL (>40); LDL Cholesterol Calculated 88 mg/dL (<100); Potassium 3.6 mmol/L (3.3-5.1); Sodium 138 mmol/L (135-145); Triglycerides 155 mg/dL (<150)
[2023-06-15 11:33] LABS: Prostate Specific Antigen 4.03 ng/mL (<0.05-4.0)
== END 2023-06-15 09:51 | disposition home or self-care (01) ==
LOC: HO.LAB 09:50
PROVIDERS: PCP Internal Medicine Medical Oncology; Visit Provider Internal Medicine Medical Oncology
DX: N40.0 Benign prostatic hyperplasia without lower urinary tract symptoms (principal); E55.9 Vitamin D deficiency, unspecified; I10 Essential (primary) hypertension; K22.70 Barrett's esophagus without dysplasia; E78.00 Pure hypercholesterolemia, unspecified; Z12.5 Encounter for screening for malignant neoplasm of prostate
CPT/HCPCS: 36415; 80053; 80061; 84153; 85025

== ENCOUNTER 2024-06-29 09:39 | Outpatient (REF) | payer MEDICARE, SELFPAY ==
[2024-06-29 09:56] LABS: MANUAL DIFF FLAG NO
[2024-06-29 11:44] LABS: Basophils Absolute Auto 0.1 X10*3/uL (0.0-0.2); Basophils Percent Auto 0.6 % (0-2); Eosinophils Absolute Auto 0.4 X10*3/uL (0.0-0.4); Eosinophils Percent Auto 3.8 % (0-4); Hemoglobin 15.6 g/dl (14.0-18.0); Imm Gran Abs Auto 0.05 X10*3/uL (0.00-0.03); Imm Gran Pct Auto 0.4 % (0.0-0.4); Lymphocytes Absolute Auto 1.6 X10*3/uL (1.2-4.9); Lymphocytes Percent Auto 13.9 % (20-40); Mean Corpuscular HGB Conc 35.5 g/dl (31.0-36.0); Mean Corpuscular Hemoglobin 31.8 pg (27.0-33.0); Mean Corpuscular Volume 89.8 fL (80.0-98.0); Mean Platelet Volume 9.9 fL (9.4-12.4); Monocytes Absolute Auto 0.8 X10*3/uL (0.1-1.2); Monocytes Percent Auto 6.8 % (2-11); Neutrophils Absolute Auto 8.7 x10*3/uL (2.0-8.3); Neutrophils Percent Auto 74.5 % (45-73); Platelet Count 306 X10*3/uL (160-400); Red Cell Distribution Width 12.9 % (11.0-16.0); White Blood Count 11.6 X10*3/uL (4.8-10.8)
[2024-06-29 12:28] LABS: Alanine Aminotransferase 13 U/L (0-40); Albumin Level 4.4 g/dL (3.5-5.0); Alkaline Phosphatase 87 U/L (39-117); Anion Gap 14 (12-20); Aspartate Amino Transferase 20 U/L (5-37); Bilirubin Total 0.8 mg/dL (0.0-1.0); Blood Urea Nitrogen 15 mg/dL (9-16); Calcium 9.5 mg/dL (8.4-10.2); Carbon Dioxide 26 mmol/L (22-29); Chloride 105 mmol/L (96-108); Cholesterol 163 mg/dL (<200); Estimated Glomerular Filt Rate 57; Glucose Fasting 105 mg/dL (60-99); HDL Cholesterol 45 mg/dL (>40); LDL Cholesterol Calculated 91 mg/dL (<100); Potassium 3.7 mmol/L (3.3-5.1); Sodium 141 mmol/L (135-145); Total Protein 8.4 g/dL (6.5-8.0); Triglycerides 138 mg/dL (<150)
[2024-06-29 12:35] LABS: Prostate Specific Antigen 3.27 ng/mL (<0.05-4.0)
== END 2024-06-29 09:40 | disposition home or self-care (01) ==
LOC: HO.LAB 09:39
PROVIDERS: PCP Internal Medicine Medical Oncology; Visit Provider Internal Medicine Medical Oncology
DX: I10 Essential (primary) hypertension (principal); N40.0 Benign prostatic hyperplasia without lower urinary tract symptoms; E78.01 Familial hypercholesterolemia; E66.3 Overweight; Z12.5 Encounter for screening for malignant neoplasm of prostate
CPT/HCPCS: 36415; 80053; 80061; 84153; 85025

== ENCOUNTER 2024-11-01 13:02 | Outpatient (REF) | payer MEDICARE, SELFPAY ==
[2024-11-01 13:22] LABS: MANUAL DIFF FLAG NO
[2024-11-01 13:38] LABS: Basophils Absolute Auto 0.1 X10*3/uL (0.0-0.2); Basophils Percent Auto 0.5 % (0-2); Eosinophils Absolute Auto 0.6 X10*3/uL (0.0-0.4); Eosinophils Percent Auto 4.1 % (0-4); Hematocrit 41.4 % (42.0-52.0); Hemoglobin 14.7 g/dl (14.0-18.0); Imm Gran Abs Auto 0.07 X10*3/uL (0.00-0.03); Imm Gran Pct Auto 0.5 % (0.0-0.4); Lymphocytes Percent Auto 14.1 % (20-40); Mean Corpuscular HGB Conc 35.5 g/dl (31.0-36.0); Mean Corpuscular Hemoglobin 29.6 pg (27.0-33.0); Mean Corpuscular Volume 83.5 fL (80.0-98.0); Mean Platelet Volume 8.9 fL (9.4-12.4); Monocytes Absolute Auto 1.1 X10*3/uL (0.1-1.2); Monocytes Percent Auto 7.8 % (2-11); Neutrophils Absolute Auto 10.2 x10*3/uL (2.0-8.3); Platelet Count 335 X10*3/uL (160-400); Red Blood Count 4.96 X10*6/uL (4.60-5.80); Red Cell Distribution Width 13.2 % (11.0-16.0); White Blood Count 13.9 X10*3/uL (4.8-10.8)
[2024-11-01 14:03] LABS: Alanine Aminotransferase 11 U/L (0-40); Albumin Level 4.1 g/dL (3.5-5.0); Alkaline Phosphatase 77 U/L (39-117); Anion Gap 11 (12-20); Aspartate Amino Transferase 20 U/L (5-37); Bilirubin Total 0.7 mg/dL (0.0-1.0); Blood Urea Nitrogen 14 mg/dL (9-16); Calcium 9.3 mg/dL (8.4-10.2); Carbon Dioxide 28 mmol/L (22-29); Chloride 102 mmol/L (96-108); Cholesterol 163 mg/dL (<200); Estimated Glomerular Filt Rate 60; Glucose Fasting 124 mg/dL (60-99); HDL Cholesterol 50 mg/dL (>40); LDL Cholesterol Calculated 85 mg/dL (<100); Potassium 3.4 mmol/L (3.3-5.1); Sodium 138 mmol/L (135-145); Total Protein 8.2 g/dL (6.5-8.0); Triglycerides 140 mg/dL (<150)
--- OUTSIDE RECORDS SUMMARY | 2024-11-01 14:33 | XMS_ITS ---
Author Organization [facility] Address [address] [place] [address] Care Team Providers Care Carpenter And Joiner Name Role Phone Wesley Chao MD Primary Care Provider Unavailab Wesley Telles Unavailable [phone] REASON FOR VISIT Patient presents today for barretts esophagus Encounters Encounter Location Date Provider Diagnosis [facility] [address] [place] [address] 06/21/2023 Wesley Carrera PLAN OF TREATMENT Next Appt Details Provider Name:Wesley Carrera , 11/28/2024 08:30:00 AM, [address] [place] [address] , [place], [place], [phone],
--- OUTSIDE RECORDS SUMMARY | 2024-11-01 14:33 | XMS_ITS ---
Author Organization [facility] Address [address] [place] [address] Care Team Providers Care Cotton Broker Name Role Phone Pedro Chao MD Primary Care Provider Pedro Minor Unavailable [phone] ALLERGIES Allergen (clinical drug ingredient) Drug/Non Drug Allergy documented on EMR Reaction Allergy Type Onset Date Status Penicillin Unknown Drug Allergy Active tetracycline Tetracycline HCl Unknown Drug Allergy Active dust (uncoded) Unknown Allergy Activ e mold (uncoded) Unknown Allergy Activ e REASON FOR VISIT Patient presents today for Cao's Esophagus MEDICATIONS Medication SIG (Take, Route, Frequency, Duration) Notes Start Date End Date Status Benadryl Active Betamethasone Dipropionate 0.05 % External for 30 Active Norvasc 5mg Active Zoloft 50mg Active tylenol 1 tab Oral Active Famotidine 40 MG TAKE 1 TABLET BY TWICE A DAY for 90 Active Atenolol 50mg Active Lisinopril 5 MG 1 tablet Orally Once a day for 30 day(s) Active PROBLEMS Problem Type ICD Code Onset Dates Problem Status W/U Status Risk SNOMED Code Notes Problem 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) Active confirmed Cao's esoph temo (796704193) Problem Chronic GERD (K21.9) Active confirmed Gastroesophagea l reflux disease (disorder) (394516009) Problem Hiatal hernia (K44.9) Active confirmed Hiatal hernia (59341525) VITAL SIGNS BMI 27.04 kg/m2 07/26/2024 Blood pressure systolic 00 mm Hg 07/26/20 24 Blood pressure diastolic 00 mm Hg 024 Height 73 in 07/26/2024 Weight 205 lbs 07/26/2024 Encounters Encounter Location Date Provider Diagnosis [facility] [address] [facility] [address] [place] [address] 07/26/2024 Pedro Carrera Cao''s esophagus without dysplasia K22.70 ; Chronic GERD K21.9 and Hiatal hernia K44.9 ASSESSMENTS Encounter Date Diagnosis Assessment Notes Treatment Notes Treatment Clinical Notes 07/26/2024 Cao''s esophagus without dysplasia (ICD-10 - K22.70) 07/26/2024 Chronic GERD (ICD-10 - K21.9) 07/26/2024 Hiatal hernia (ICD-10 - K44.9) PLAN OF TREATMENT Future Test Test Name Order Date UPPER GI ENDOSCOPY 07/26/2024 Next Appt Details Follow Up: prn, Reason: Provider Name:Pedro Carrera , 11/28/2024 08:30:00 AM, [address] [place] [address] , [place], [place], [phone], Progress Notes * Examination Category Sub-Category Detail Notes General Examination GENERAL APPEARANCE: pleasant , well nourished, well developed, in no acute distress HEAD: EYES: sclera non-icteric EARS: NOSE: THROAT: NECK/THYROID: no cervical lymphade nopathy, neck supple HEART: S1, S2 normal CHEST: LUNGS: clear to auscultatio n bilaterally ABDOMEN: normal bowel sounds, no guarding or rigidity, no guarding or rigidity, no masses palpable, soft, nontender, nondistended NEUROLOGIC: alert and oriented SKIN: nonjaundiced, no spi kiki angiomata EXTREMITIES: no edema PERIPHERAL PULSES: BACK: BREASTS: MUSCULOSKELETAL: MALE GENITOURINARY: LYMPH NODES: RECTAL EXAM: FEMALE GENITOURINARY: ORAL CAVITY: mucosa moist
--- OUTSIDE RECORDS SUMMARY | 2024-11-01 14:33 | XMS_ITS ---
Author Organization [facility] Address [address] [place] [address] Care Team Providers Care Ip/Mosaic Technician Name Role Phone Wesley Chao MD Primary Care Provider Unavailab Wesley Telles Unavailable [phone] Encounters Encounter Location Date Provider Diagnosis [facility] [address] [place] [address] 07/26/2024 Wesley Carrera PLAN OF TREATMENT Next Appt Details Provider Name:Wesley Carrera , 11/28/2024 08:30:00 AM, [address] [facility] , [place], [place], [phone],
--- OUTSIDE RECORDS SUMMARY | 2024-11-01 14:34 | XMS_ITS | Patient Health Record ---
Author Organization [facility] Address [address] [place] [address] Care Team Providers Care Heat Treater Head Name Role Phone Pedro Chao MD Primary Care Provider UnavailPedro Coy Unavailable [phone] ALLERGIES Allergen (clinical drug ingredient) Drug/Non Drug Allergy documented on EMR Reaction Allergy Type Onset Date Status Penicillin Unknown Drug Allergy Active tetracycline Tetracycline HCl Unknown Drug Allergy Active dust (uncoded) Unknown Allergy Activ e mold (uncoded) Unknown Allergy Activ e REASON FOR REFERRAL Referring Provider First Name Pedro Referring Provider Last Name Jeremie Referring Provider Speciality Oncology Referred Organization [facility] Referred Provider Pedro Carrera Referred Address [address] [place] [address],[address],[place], [place],[address], Referred Provider Specialty Gastroentero logy General Notes Graciela Paz 024 03:00:08 PM EDT > no referral required since the same [place] of care Referral Priority Routine MEDICATIONS Medication SIG (Take, Route, Frequency, Duration) Notes Start Date End Date Status Norvasc 5mg Active Zoloft 50mg Active tylenol 1 tab Oral Active Famotidine 40 MG TAKE 1 TABLET BY TWICE A DAY for 90 Active Lisinopril 5 MG 1 tablet Orally Once a day for 30 day(s) Active Atenolol 50mg Active Benadryl Active Betamethasone Dipropionate 0.05 % External for 30 Active SOCIAL HISTORY Sex Assigned At : Social History Observation Description Sex Assigned At Unknown PROBLEMS Problem Type ICD Code Onset Dates Problem Status W/U Status Risk SNOMED Code Notes Problem Encounter for screening for malignant neoplasm of colon (Z12.11) Active confirmed 931517059 Problem Encounter for screening for malignant neoplasm of rectum (Z12.12) Active confirmed Screening for malignant neoplasm of rectum (113137786) Problem Esophageal stricture (K22.2) Active confirmed 76067838 Problem Hiatal hernia (K44.9) Active confirmed Hiatal hernia (38773179) Problem Esophagitis, erosive (K22.10) Active confirmed 98699551 Problem 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) Active confirmed Cao's esoph temo (238527726) Problem Chronic GERD (K21.9) Active confirmed Gastroesophagea l reflux disease (disorder) (659572337) VITAL SIGNS Blood pressure diastolic 00 mm Hg 07/26/2024 Height 73 in 07/26/2024 Blood pressure systolic 00 mm Hg 07/26/2024 Weight 205 lbs 07/26/2024 BMI 27.04 kg/m2 07/26/2024 Encounters Encounter Location Date Provider Diagnosis [facility] [address] [facility] [address] [place] [phone] 07/26/2024 Pedro Carrera Cao''s esophagus without dysplasia K22.70 ; Chronic GERD K21.9 and Hiatal hernia K44.9 [facility] [address] [facility] [address] [place] [phone] 07/26/2024 Pedro Carrera ASSESSMENTS Encounter Date Diagnosis Assessment Notes Treatment Notes Treatment Clinical Notes 07/26/2024 Cao''s esophagus without dysplasia (ICD-10 - K22.70) 07/26/2024 Chronic GERD (ICD-10 - K21.9) 07/26/2024 Hiatal hernia (ICD-10 - K44.9) PLAN OF TREATMENT Future Test Test Name Order Date UPPER GI ENDOSCOPY BALLOOON DILATION OF ESOPH 11/06/2015 COLONOSCOPY 11/06/2015 UPPER GI ENDOSCOPY 07/26/2024 Next Appt Details Provider Name:Pedro Carrera , 11/28/2024 08:30:00 AM, [address] [place] [address] , [place], [place], [phone], Insurance Providers Payer Name Payer Address Payer Phone Subscriber Number Group Number Insured Name Patient Relationship to Insured Coverage Start Date Coverage End Date [employer] 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
== END 2024-11-01 13:03 | disposition home or self-care (01) ==
LOC: HO.LAB 13:02
PROVIDERS: PCP Internal Medicine Medical Oncology; Visit Provider Internal Medicine Medical Oncology
DX: I10 Essential (primary) hypertension (principal); N40.0 Benign prostatic hyperplasia without lower urinary tract symptoms; E78.01 Familial hypercholesterolemia; E66.3 Overweight; Z12.5 Encounter for screening for malignant neoplasm of prostate
CPT/HCPCS: 36415; 80053; 80061; 84153; 85025

== ENCOUNTER 2024-11-13 10:29 | Outpatient (REF) | payer MEDICARE, SELFPAY ==
--- NOTE | ~2024-11-13 | US_ITS ---
EXAMINATION: US LOWER EXTREMITY VEINS LIMITED FOLLOW UP LEFT HISTORY: left leg pain and redness COMPARISON: Comparison is made with the prior examination dated 02/23/2017. TECHNIQUE: Duplex and color Doppler sonographic examination of the deep venous system of the left lower extremity was performed. FINDINGS: The common femoral, superficial femoral, and popliteal veins are patent demonstrating normal compressibility, spontaneous flow, and augmentation. There is a normal color and spectral Doppler waveform appearance of the visualized deep venous system above the knee. The posterior tibial and peroneal veins are patent. There are prominent lymph nodes in the left groin measuring up to 2.5 cm in length, but demonstrating thin a thin cortex and prominent fatty hilum. US/US venous duplex LE LT IMPRESSION: No evidence of acute DVT in the left lower extremity. Electronically signed by: Wesley Murray MD 11/13/2024 11:04 AM NGA
== END 2024-11-13 10:30 | disposition home or self-care (01) ==
LOC: HO.US 10:29
PROVIDERS: PCP Internal Medicine Medical Oncology; Visit Provider Internal Medicine Medical Oncology
DX: M79.605 Pain in left leg (principal); L53.9 Erythematous condition, unspecified
CPT/HCPCS: 93971

== ENCOUNTER → 2024-11-13 10:49 | Outpatient (BNV) | payer MEDICARE, SELFPAY | PROVIDERS: PCP Internal Medicine Medical Oncology; Visit Provider Radiology Diagnostic Radiology | DX: M79.605 Pain in left leg (principal) | CPT/HCPCS: 93971 ==

== ENCOUNTER 2024-11-28 07:15 | Day surgery (SDC) | payer MEDICARE, SELFPAY ==
[2024-11-26 09:08] VITALS: BMI 27.0
[2024-11-28 07:41] VITALS: BP 138/82; PULSE 69; RESP 16; TEMP 36.1; O2SAT 95; BMI 28.6
--- NOTE | 2024-11-28 07:45 | HO.ANESPROP2 ---
Documented by User: Carrol Rios NP 11/27/24 08:28 HPI - Anesthesia Eval Consult details Narrative: 79yo M for Upper Endoscopy with russo biopsy PMFSH Past Medical History Medical History (Updated 11/26/24 @ 08:58 by Saray Thompson, RN) Dizziness Tinnitus Anxiety and depression Hiatal hernia Fish allergy Acid reflux Cataract (lens) fragments in eye following cataract surgery, bilateral HTN (hypertension) Family History Family History Father Heart disease Surgical History Surgical History (Updated 11/26/24 @ 08:59 by Saray Thompson RN) Hx of neck surgery H/O colonoscopy History of esophagogastroduodenoscopy (EGD) H/O eye surgery History of tonsillectomy Social History Social History Household Members: Family Household Members Other:: and brother Housing: House Do you presently have visiting nurse or other home services: No Alcohol intake: never Patient Tobacco Use Status: Former Tobacco user Second Hand Smoke Exposure: No Advance Directives: No Advance Directives Information Provided: Yes Advance Directives Date on File: 07/19/22 service: No Current occupational status: retired Meds Allergies Allergy/AdvReac Type Severity Reaction Status Date / Time Penicillins [PENICILLINS] Allergy Unknown HIVES, Verified 11/28/24 07:40 DIARRHEA tetracycline [TETRACYCLINE] Allergy Unknown HIVES, Verified 11/28/24 07:40 DIARRHEA SEASONAL ALLERGIES Allergy Mild NASAL Uncoded 11/28/24 07:40 CONJESTIONS Home Medications ?Medication ?Instructions ?Recorded ?Confirmed ?Last Taken ?Type amlodipine 5 mg tablet 5 mg PO DAILY 06/16/21 11/28/24 11/28/24 06:30 History atenolol 50 mg tablet 50 mg PO DAILY 06/16/21 11/28/24 11/28/24 06:30 History betamethasone, augmented 0.05 % 1 appl topical DAILY PRN DERMATITIS 06/16/21 11/28/24 07/18/22 09:00 History topical cream diphenhydramine HCl 25 mg capsule 50 mg PO BID PRN Allergy Symptoms 06/16/21 11/28/24 07/18/22 09:00 History (Benadryl) famotidine 40 mg tablet 40 mg PO BID 06/16/21 11/28/24 07/18/22 09:00 History sertraline 50 mg tablet 50 mg PO DAILY 06/16/21 11/28/24 07/18/22 09:00 History acetaminophen 325 mg tablet 325 mg PO QID PRN PAIN 07/19/22 11/28/24 Unknown History lisinopril 5 mg tablet 5 mg PO DAILY 11/26/24 11/28/24 Unknown History Exam Height,Weight and Vital Signs: Height 6 ft 1 in Weight 92.986 kg Assessment and Plan Assessment Anesthesia Assessment: Chart Reviewed Documented by User: Hien Masterson DO 11/28/24 07:47 PMFSH Past Medical History Medical History (Updated 11/26/24 @ 08:58 by Saray Thompson RN) Dizziness Tinnitus Anxiety and depression Hiatal hernia Fish allergy Acid reflux Cataract (lens) fragments in eye following cataract surgery, bilateral HTN (hypertension) Family History Family History Father Heart disease Family history of problems with anesthesia: No Surgical History Surgical History (Updated 11/26/24 @ 08:59 by Saray Thompson RN) Hx of neck surgery H/O colonoscopy History of esophagogastroduodenoscopy (EGD) H/O eye surgery History of tonsillectomy History of Problems with Anesthesia: No Social History Social History Household Members: Family Household Members Other:: and brother Housing: House Do you presently have visiting nurse or other home services: No Alcohol intake: never Patient Tobacco Use Status: Former Tobacco user Second Hand Smoke Exposure: No Advance Directives: No Advance Directives Information Provided: Yes Advance Directives Date on File: 07/19/22 service: No Current occupational status: retired Meds Allergies Allergy/AdvReac Type Severity Reaction Status Date / Time Penicillins [PENICILLINS] Allergy Unknown HIVES, Verified 11/28/24 07:40 DIARRHEA tetracycline [TETRACYCLINE] Allergy Unknown HIVES, Verified 11/28/24 07:40 DIARRHEA SEASONAL ALLERGIES Allergy Mild NASAL Uncoded 11/28/24 07:40 CONJESTIONS Home Medications ?Medication ?Instructions ?Recorded ?Confirmed ?Last Taken ?Type amlodipine 5 mg tablet 5 mg PO DAILY 06/16/21 11/28/24 11/28/24 06:30 History atenolol 50 mg tablet 50 mg PO DAILY 06/16/21 11/28/24 11/28/24 06:30 History betamethasone, augmented 0.05 % 1 appl topical DAILY PRN DERMATITIS 06/16/21 11/28/24 07/18/22 09:00 History topical cream diphenhydramine HCl 25 mg capsule 50 mg PO BID PRN Allergy Symptoms 06/16/21 11/28/24 07/18/22 09:00 History (Benadryl) famotidine 40 mg tablet 40 mg PO BID 06/16/21 11/28/24 07/18/22 09:00 History sertraline 50 mg tablet 50 mg PO DAILY 06/16/21 11/28/24 07/18/22 09:00 History acetaminophen 325 mg tablet 325 mg PO QID PRN PAIN 07/19/22 11/28/24 Unknown History lisinopril 5 mg tablet 5 mg PO DAILY 11/26/24 11/28/24 Unknown History Exam Exam Date and Time: 11/28/24 0744 Airway Mallampati Class: II TM Dist: <=3cm Neck ROM: Full Loose/Missing/Broken Teeth: Yes (poor dentition - multiple missing and broken teeth) Heart: S1S2 Lungs: CTAB Assessment and Plan Assessment Anesthesia Assessment: Anesthesia Plan Discussed and Chart Reviewed Final Anesthetic Review Family History of Problems with Anesthesia: No History of Problems with Anesthesia: No NPO: Yes ASA Class: II Final Preanesthetic Review: No Changes in Pt Med Stat, Meds/Allgs Chart Reviewed, Consent Obtained/Reviewed and Anes Risks/Benef Reviewed Patient Risk: Low Procedure Risk: Low Anesthetic Plan Anesthetic Plan: MAC: and Agree w/ Assess. and Plan Disposition: Standard PACU
[2024-11-28] MEDS: Lactated Ringers 1,000 ML 100 ML IVCONT (07:56)
[2024-11-28 08:40] VITALS: BP 100/56; PULSE 55; RESP 16; TEMP 36.6; O2SAT 98
--- NOTE | 2024-11-28 08:41 | PM.OP ---
Brief Operative Note Date of Service: 11/28/24 Pre-op diagnosis: Cao's Post-op diagnosis: other (Same, Hiatal hernia) Procedure: EGD with biopsies and WATS brushings, and Lolita Study Surgeon: Wesley Carrera MD Anesthesia: MAC Was an Figure Skater used for this Procedure?: No Estimated blood loss (mL): 2.0 Pathology: other (A. EG Junction at 36cm B. Esophagus at 34cm C. Esophagus at 32cm D. Esophagus at 30cm) Condition: stable Disposition: PACU
[2024-11-28 08:55] VITALS: BP 125/63; PULSE 55; RESP 16; TEMP 36.8; O2SAT 100
--- NOTE | 2024-11-28 10:17 | OP_ITS ---
DATE OF SERVICE: 11/28/2024 SURGEON: Wesley Carrera MD INDICATIONS: The patient presents for evaluation of gastroesophageal reflux and Cao's esophagus. Full consent has been obtained from him for this, including risks of bleeding and perforation. PREOPERATIVE DIAGNOSIS: POSTOPERATIVE DIAGNOSIS: PROCEDURE PERFORMED: ESTIMATED BLOOD LOSS: COMPLICATIONS: ANESTHESIA: Medication used, monitored anesthesia care. ASSISTANTS: SPECIMENS: PREOPERATIVE DIAGNOSES: Cao's esophagus and gastroesophageal reflux. POSTOPERATIVE DIAGNOSES: Cao's esophagus and gastroesophageal reflux, hiatal hernia. PROCEDURES PERFORMED: Esophagogastroduodenoscopy with biopsies, WATS brushings, and Cypher study. DESCRIPTION OF PROCEDURE: The patient was placed in the left lateral decubitus position. The Olympus video gastroscope was passed in the posterior oropharynx and upper esophagus under direct vision. The scope was passed slowly to the distal esophagus. The gastroesophageal junction appeared at 36 cm. Extending from this to 30 cm was a circumferential segment of Cao's mucosa. There were no overlying lesions nor esophagitis. The squamocolumnar junction was seen at 30 cm. The scope entered the stomach and there was a large hiatal hernia. The hiatal hernia mucosa appeared normal. The scope was advanced to pylorus. The duodenum was cannulated to the descending portion. The duodenum including the bulb appeared normal without mass or ulceration. The scope was withdrawn back to the stomach. The gastric antrum and body appeared normal with good peristalsis. The scope was retroflexed visualizing the proximal stomach carefully, which appeared normal, without any sign of mass or ulceration. The scope was straightened and withdrawn back to the esophagus. I obtained multiple biopsies at a level of 36 cm at the EG junction, at 34 cm, at 32 cm, and at 30 cm at the squamocolumnar junction. I then obtained a set of WATS brushings between 30 and 36 cm. Proximal to 30 cm, the esophageal mucosa appeared normal. The scope was withdrawn from the patient. He tolerated the procedure well and was returned to the recovery area in stable condition. IMPRESSION: 1. Cao's esophagus, rule out dysplasia. 2. Hiatal hernia. PLAN: The results of the biopsies will be checked. If there is no evidence of any dysplasia on the biopsies or brushings, then I do not think he will need any further surveillance endoscopies given his age. He was advised to continue his famotidine and not use any aspirin or NSAIDs for at least 1 week. At this point, he has not required a PPI as he is otherwise asymptomatic on the famotidine. He will otherwise see me on a p.r.n. basis as long as there is no dysplasia. MD ERICA Calero/CHARLY / [id number] MTDD
== END 2024-11-28 09:36 | disposition home or self-care (01) ==
PROVIDERS: PCP Internal Medicine Medical Oncology; Visit Provider Internal Medicine
PROC: 0DJ08ZZ Inspection of Upper Intestinal Tract, Via Natural or Artificial Opening Endoscopic (ICD-10-PCS; CPT 43235; principal; 2024-11-28 08:30)
DX: K22.710 Barrett's esophagus with low grade dysplasia (principal); K21.9 Gastro-esophageal reflux disease without esophagitis; K44.9 Diaphragmatic hernia without obstruction or gangrene; I10 Essential (primary) hypertension; J30.2 Other seasonal allergic rhinitis; F41.9 Anxiety disorder, unspecified; Z79.899 Other long term (current) drug therapy; Z98.890 Other specified postprocedural states; Z88.0 Allergy status to penicillin; Z88.1 Allergy status to other antibiotic agents; Z87.891 Personal history of nicotine dependence
CPT/HCPCS: 43239; 88305; J2704

== ENCOUNTER 2025-04-05 14:30 | Outpatient (RCR) | payer MEDICARE, SELFPAY | END 2025-04-05 15:12 | disposition home or self-care (01) | LOC: HO.WCC 14:30 | PROVIDERS: PCP Internal Medicine Medical Oncology; Visit Provider Surgery Surgical Oncology | DX: L97.812 Non-pressure chronic ulcer of other part of right lower leg with fat layer exposed (principal); Q82.0 Hereditary lymphedema; I10 Essential (primary) hypertension; Z79.2 Long term (current) use of antibiotics; Z79.899 Other long term (current) drug therapy; Z87.891 Personal history of nicotine dependence | CPT/HCPCS: 11042; 29580; 29581; 97597; 99212; 99213; 99214 ==

== ENCOUNTER 2025-06-29 10:31 | Outpatient (REF) | payer MEDICARE, SELFPAY ==
--- OUTSIDE RECORDS SUMMARY | 2024-11-28 04:30 | XMS_ITS ---
Author Organization [facility] Address [address] [place] [address] Care Team Providers Care Operations Engineer Name Role Phone Pedro Chao MD Primary Care Provider Unavailab Pedro Telles Unavailable [phone] REASON FOR VISIT perdue's ,gerd, hiatal hernia Problems Problem Type SNOMED Code ICD Code Onset Dates Problem Status W/U Status Risk Notes Problem Gastroesophageal reflux disease (061222147) Gastroesophageal reflux disease (K21.9) Active confirmed Encounters Encounter Location Date Provider Diagnosis [facility] Outpatient [address] [place] [phone] 11/28/2024 Pdero Carrera Perdue''s esophagus without dysplasia K22.70 ; Gastroesophageal reflux disease K21.9 and Hiatal hernia K44.9 Assessments Encounter Date Diagnosis (ICD Code) Assessment Notes Treatment Notes Treatment Clinical Notes Section Notes 11/28/2024 Perdue''s esophagus without dysplasia (ICD-10 - K22.70) 11/28/2024 Gastroesophageal reflux disease (ICD-10 - K21.9) 11/28/2024 Hiatal hernia (ICD-10 - K44.9) Plan Of Treatment Next Appt Details Provider Name:Pedro Carrera , 08/22/2025 10:20:00 AM, [address], [address], [place], [address], Progress Notes * PEDRO ACOSTADOB: [birth year] (80 yo M)Acc No.[id number]:11/28/2024 EGD/MAC Patient: PEDRO MORSE Provider: Billy Carrera MD :1945 A ge:79 Y S ex:Male Date:11/28/2024 Address:[facility] [place] [id number] Pcp:Pedro Chao MD Subjective: * Chief Complaints: * 1 . Perdue's ,gerd, hiatal hernia. * Medical History: Objective: * Vitals: Assessment: * Assessment: 1. B arrett''s esophagus without dysplasia - K22.70 (Primary) 2 . G astroesophageal reflux disease - K21.9 3 . H iatal hernia - K44.9 Plan: * Treatment: * Procedure Codes: 4 3239 UPPER GI ENDOSCOPY, BIOPSY * * The named appointment provid er may or may not be the originator of this progress note, and it is not deemed complete until electronically signed by the appointment provider. Sign off status: Pending * Provider: Billy Carrera MD Date: 0 11/28/2024 Generated for Sherrie hui/Deborah/Gingersmitting on: 0 06/29/2025 10:34 AM EDT
--- OUTSIDE RECORDS SUMMARY | 2025-04-24 05:06 | XMS_ITS ---
Author Organization Wesley Chao III, MD Address [address] [place] [address] [place] [address] Care Team Providers Care Financial Supervisor Name Role Phone Wesley Chao Primary Care Provider REASON FOR VISIT update on appts Social History Sex Assigned At : Social History Observation Description Sex Assigned At Male Encounters Encounter Location Date Provider Diagnosis Wesley Chao III, MD [address] [place] [address] [place] [address] 04/24/2025 Wesley Chao Plan Of Treatment Next Appt Details Provider Name:Wesley Chao, 07/05/2025 10:30:00 AM, [address] [place] [address] [place], [address], Progress Notes * Wesley ACOSTADOB: (79 yo M)Acc No.[id number]:04/24/2025 Patient: Wesley MORSE :1945 A ge:79 Y S ex:Male Address:[facility] [address], [place] [address] * true * Date: Generated for Printi ng/Faxing/eTransmitting on: 0 06/29/2025 10:34 AM EDT
--- OUTSIDE RECORDS SUMMARY | 2025-04-24 05:09 | XMS_ITS ---
Author Organization Wesley Chao III, MD Address [address] [facility] [place] [id number] Care Team Providers Care Map Plotter Name Role Phone Wesley Chao Primary Care Provider REASON FOR VISIT update on pt appts Social History Sex Assigned At : Social History Observation Description Sex Assigned At Male Encounters Encounter Location Date Provider Diagnosis Wesley Chao III, MD [address] [place] [address] [place] [id number] 04/24/2025 Wesley Chao Plan Of Treatment Next Appt Details Provider Name:Wesley Chao, 07/05/2025 10:30:00 AM, [address] [place] [address] [place], [phone], Progress Notes * Wesley ACOSTADOB: 5 (79 yo M)Acc No.[id number]:04/24/2025 Patient: Wesley MORSE :1945 A ge:79 Y S ex:Male Address:[facility], [place] [address] * true * Date: Generated for Printi ng/Faxing/eTransmitting on: 0 06/29/2025 10:35 AM EDT
--- OUTSIDE RECORDS SUMMARY | 2025-05-12 16:21 | XMS_ITS ---
Author Organization Wesley Chao III, MD Address [address] [place] [address] Care Team Providers Care Electrical Design Technologist Name Role Phone Wesley Chao Primary Care Provider REASON FOR VISIT 05/13/25 Appointment Social History Sex Assigned At : Social History Observation Description Sex Assigned At Male Encounters Encounter Location Date Provider Diagnosis Wesley Chao III, MD [address] [place] [address] [place] [address] 05/12/2025 Wesley Chao Plan Of Treatment Next Appt Details Provider Name:Wesley Chao, 07/05/2025 10:30:00 AM, [address] [place] [address] [place], [phone], Progress Notes * Wesley ACOSTADOB: 5 (80 yo M)Acc No.[id number]:05/12/2025 Patient: Wesley MORSE :1945 A ge:80 Y S ex:Male Address:[facility], [place] [address] * true * Date: Generated for Printi ng/Faxing/eTransmitting on: 0 06/29/2025 10:34 AM EDT
--- OUTSIDE RECORDS SUMMARY | 2025-05-13 13:15 | XMS_ITS ---
Author Organization Wesley Chao III, MD Address [address] [place] [address] [place] [address] Care Team Providers Care Treatment Technician Name Role Phone Wesley Caho Primary Care Provider [phone] Allergies Allergen (clinical drug ingredient) Drug/Non Drug Allergy documented on EMR Reaction Allergy Type Onset Date Status Mold Unknown Allergy Active Dust Mites Unknown Allergy Active tetracycline Tetracycline HCl Unknown Drug Allergy Active sulfamethoxazole / trimethoprim Bactrim Unknown Drug Allergy Active Fish derivative (substance) Cod fish (uncoded) Unknown Allergy Active banana allergenic extract Banana (Diagnostic) Unknown Drug Allergy Active Penicillin Unknown Drug Allergy Active mupirocin Mupirocin Unknown Drug Allergy Active REASON FOR VISIT Follow Up Medications Medication SIG (Take, Route, Frequency, Duration) Notes Start Date End Date Status Cephalexin 500 MG Oral Ac tive Sertraline HCl 50 MG TAKE 1 TABLET BY MO UTH EVERY MORNING Active Famotidine 40 MG TK 1 T PO BID Oral T wice a day Active amLODIPine Besylate 5 MG TAKE 1 TABLET B Y MOUTH EVERY DAY Active Atenolol 50 MG TAKE 1 TABLET BY [place] TH EVERY DAY Active Benadryl 09/06/2024 Active Multivitamin 07/03/2024 Active Social History Tobacco Use: Social History Observation Description Date Details (start date - stop date) Former Smoker NA - NA Sex Assigned At : Social History Observation Description Sex Assigned At Male Tobacco Use/Smoking Question Answer Notes Patient is a former smoker How long has it been since you last smoked? > 10 years Additional Findings: Tobacco Non-User Ex-cigaret te smoker Encounters Encounter Location Date Provider Diagnosis Wesley Chao III, MD [address] [place] [address] [address] [place] [address] 05/13/2025 Wesley Chao Essential hypertensi on I10 Assessments Encounter Date Diagnosis (ICD Code) Assessment Notes Treat ment Notes Treatment Clinical Notes 05/13/2025 Essential hypertension (ICD-10 - I10) His blood pressure continues to be in the normal range and he feels well. He was given an appointment in the near future to return to measure the blood pressure again. He has been compliant with his medications and has lost 1 pound. Plan Of Treatment Medication Medication Name Sig Start Date Stop Date Notes Cephalexin 500 MG Oral Sertraline HCl 50 MG TAKE 1 TABLET BY MO UTH EVERY MORNING Famotidine 40 MG TK 1 T PO BID Oral Twice a day amLODIPine Besylate 5 MG TAKE 1 TABLET BY MOUTH EVERY DAY Atenolol 50 MG TAKE 1 TABLET BY MOUTH EVERY DAY Benadryl 09/06/2024 Multivitamin 07/03/2024 Next Appt Details Provider Name:Wesley Chao, 07/05/2025 10:30:00 AM, [address] [place] [address] [address], [place], [address], Progress Notes * Wesley ACOSTADOB: 5 (80 yo M)Acc No.[id number]:05/13/2025 Progress Notes Patient: Wesley MORSE Provider: Billy Chao MD :1945 A ge:80 Y S ex:Male Date:05/13/2025 Address:[address] [place] [address] [address], [place], [id number] Subjective: * Chief Complaints: * 1 . Follow Up. * HPI: C OVID-19 Screening: Questions H ave you had any new onset fever, chills, cough, congestion, sore throat, shortness of breath, muscle aches? N o * ROS: G eneral/Constitutional: pain o nly normal aches and pains. C hills d enies.?Fatigue a dmits. F ever d enies. E NT: Decreased hearing d enies. R espiratory: Cough d enies. C ardiovascular: Chest pain with exertion d enies. D yspnea on exertion?denies. S hortness of breath d enies. G astrointestinal: Constipation d enies. D ecreased appetite d enies.?Diarrhea d enies. H eartburn d enies. N ausea d enies. R ectal bleeding?denies. V omiting d enies. H ematology: bruising d enies. p etechiae d enies. S wollen glands n one have been noted. G enitourinary: Frequent urination d enies. M usculoskeletal: Muscle aches d enies. P ainful joints d enies. S ciatica d enies. W eakness d enies. S kin: Itching d enies. R moody d enies. S kin lesion(s)?denies. N eurologic: Difficulty speaking d enies. D izziness d enies.?Headache d enies. L ow back pain d enies. P sychiatric: Depressed mood d enies. * Medical History: H ypertension, Eczematous dermatitis, Depression, Allergies, Cataracts, Obesity, Former smoker, Benign prostatic hypertrophy, Cao's esophagus. * Surgical History: N o history . * Hospitalization/Major Diagno stic Procedure: c ellulitis right leg 05/2021, No history . * Family History: F ather: 83 yrs, myocardial infarction, kidney failure. M other: 92 yrs.?Spouse: alive 57 yrs. 1 brother(s) - healthy. . He has no children. He is not aware of any inherited cancer. Family syndromes. He is not aware of any family history of substance use disorder or addiction or mental illness. A brother and his mother both of Meniere's disease. * Social History: T obacco Use: T obacco Use/Smoking P atient is a f ormer smoker H ow long has it been since you last smoked??> 10 years A dditional Findings: Tobacco Non-User E x-cigarette smoker Jimi hartley has been to [place] for 9 years. He has no children. 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 He was born in [place], [place]. * Medications: T aking amLODIPine Besylate 5 MG Tablet TAKE 1 TABLET BY MOUTH EVERY DAY , Taking Famotidine 40 MG Tablet TK 1 T PO BID Oral Twice a day , Taking Multivitamin , Taking Benadryl , Taking Atenolol 50 MG Tablet TAKE 1 TABLET BY MOUTH EVERY DAY , Taking Sertraline HCl 50 MG Tablet TAKE 1 TABLET BY MOUTH EVERY MORNING , Taking Cephalexin 500 MG Capsule Oral , Medication List reviewed and reconciled with the patient * Allergies: T etracycline HCl, Cod fish, Banana (Diagnostic): Allergy, Mold, Dust Mites, Mupirocin, Bactrim, Penicillin. Objective: * Vitals: * Examination: G eneral Examination: GENERAL APPEARANCE: p leasant, well nourished, well developed, in no acute distress, calm and relaxed. HEAD: a traumatic, normocephalic. EYES: e zaida, perrla, anicteric, conjugate. EARS: n ormal. NOSE: s eptum intact. ORAL CAVITY: n ormal, unremarkable. NECK/THYROID: n o jugular venous distention, no carotid bruit, thyroid normal. LYMPH NODES: n o enlarged lymph nodes,spleen normal. SKIN: n o suspicious lesions, anicteric. HEART: n o clicks, gallops, murmurs, or rubs, regular rhythm, S1, S2 normal, no s3, or vascular bruits. LUNGS: c lear to auscultation . BREASTS: no masses palpable bilaterally. ABDOMEN: b owel sounds normal, no ascites, no organomegaly, no mass. RECTAL EXAM: n ot examined. MUSCULOSKELETAL: e xtremities unremarkable, no clubbing, cyanosis or edema. PERIPHERAL PULSES: n ormal. NEUROLOGIC: a lert and oriented, cranial nerves 2-12 grossly intact, deep tendon reflexes 2+ symmetrical, motor strength normal upper and lower extremities, sensory exam intact. PSYCH: a lert, oriented. Assessment: * Assessment: 1. E ssential hypertension - I10 N otes :His blood pressure continues to be in the normal range and he feels well. He was given an appointment in the near future to return to measure the blood pressure again. He has been compliant with his medications and has lost 1 pound. Plan: * Treatment: 2. O thers Continue Atenolol Tablet, 50 MG, TAKE 1 TABLET BY MOUTH EVERY DAY; C ontinue Sertraline HCl Tablet, 50 MG, TAKE 1 TABLET BY MOUTH EVERY MORNING; C ontinue Cephalexin Capsule, 500 MG, Oral.? * Images: * The named appointment provid er may or may not be the originator of this progress note, and it is not deemed complete until electronically signed by the appointment provider. Sign off status: Pending * Provider: Billy Chao MD Date: 0 05/13/2025 Generated for Sherrie hui/Deborah/Josesitoitting on: 0 06/29/2025 10:35 AM EDT History and Physical Notes * HPI (History of Present Illness) Category Sub-Category Detail Notes COVID-19 Screening Questions Have you had any new onset fever, chills, cough, congestion, sore throat, shortness of breath, muscle aches?: No Examination Category Sub-Category Detail Notes General Examination GENERAL APPEARANCE: pleasant , well nourished, well developed, in no acute distress, calm and relaxed HEAD: atraumatic, normocep halic EYES: eomi, perrla, anicte patt, conjugate EARS: normal NOSE: septum intact NECK/THYROID: no jugular venous di stention, no carotid bruit, thyroid normal HEART: no clicks, gallops, murmurs, or rubs, regular rhythm, S1, S2 normal, no s3, or vascular bruits LUNGS: clear to auscultatio n ABDOMEN: bowel sounds normal, no ascites, no organomegaly, no mass NEUROLOGIC: alert and oriented, cranial nerves 2-12 grossly intact, deep tendon reflexes 2+ symmetrical, motor strength normal upper and lower extremities, sensory exam intact SKIN: no suspicious lesion s, anicteric PERIPHERAL PULSES: normal BREASTS: no masses palpable b ilaterally MUSCULOSKELETAL: extremities unremark able, no clubbing, cyanosis or edema LYMPH NODES: no enlarged lymph no joshua,spleen normal RECTAL EXAM: not examined PSYCH: alert, oriented ORAL CAVITY: normal, unremarkable
--- OUTSIDE RECORDS SUMMARY | 2025-05-23 05:30 | XMS_ITS ---
Author Organization Wesley Chao III, MD Address [address] [place] [address] [place] [address] Care Team Providers Care Horn Player Name Role Phone Wesley Chao Primary Care Provider Allergies Allergen (clinical drug ingredient) Drug/Non Drug [...] Unknown Drug Allergy Active REASON FOR VISIT Lightheadedness, Eczema, Benign prostatic hypertrophy, Allergies, Depression, Hyperlipidemia, Past., Peripheral edema Medications Medication SIG (Take, Route, Frequency, Duration) Notes Start Date End Date Status Benadryl 09/06/2024 Active Atenolol 50 MG TAKE 1 TABLET BY CLATYON TH EVERY DAY Active Famotidine 40 MG TK 1 T PO BID Oral T wice a day Active Multivitamin 07/03/2024 Active Norvasc 5 MG 1 tablet Orally Once a day Active amLODIPine Besylate 5 MG TAKE 1 TABLET B Y MOUTH EVERY DAY Active Sertraline HCl 50 MG TAKE 1 TABLET BY MO UTH EVERY MORNING Active Cephalexin 500 MG Oral Ac tive Social History Tobacco Use: Social History Observation Description Date Details (start date - stop date) Former Smoker NA - NA Sex Assigned At : Social History Observation Description Sex Assigned At Male Tobacco Use/Smoking Question Answer Notes Patient is a former smoker How long has it been since you last smoked? > 10 years Additional Findings: Tobacco Non-User Ex-cigaret te smoker Problems Problem Type SNOMED Code ICD Code Onset Dates Problem Status W/U Status Risk Notes Problem [id number] Peripheral edema (R60.0) Active confirmed Lower extremity peripheral edema has resolved. Routine followup will continue. He has lost 7 pounds. Vital Signs Temperature 97.0 degrees Fahrenheit 05/23/20 25 Blood pressure systolic 136 mm Hg 05/23/20 25 Blood pressure diastolic 80 mm Hg 025 Heart Rate 58 /min 05/23/2025 Height 72 in 05/23/2025 Weight 215 lbs 05/23/2025 BMI 29.16 kg/m2 05/23/2025 Encounters Encounter Location Date Provider Diagnosis Wesley Chao III, MD [address] [place] [address] [place] [address] 05/23/2025 Wesley Chao Essential hypertensi on I10 ; Peripheral edema R60.0 ; Vitamin D deficiency E55.9 ; BPH (benign prostatic hyperplasia) N40.0 ; Hyperlipidemia type II E78.01 ; Overweight E66.3 ; Environmental allergies Z91.09 ; Depression F32.9 ; Eczema L30.9 and Former smoker Z87.891 Assessments Encounter Date Diagnosis (ICD Code) Assessment Notes Treat ment Notes Treatment Clinical Notes 05/23/2025 Essential hypertension (ICD-10 - I10) His blood pressure continues to be in the normal range and he feels well. He was given an appointment in the near future to return to measure the blood pressure again. He has been compliant with his medications and has lost 1 pound. 05/23/2025 Peripheral edema (ICD-10 - R60.0) Lower extremity peripheral edema has resolved. Routine followup will continue. He has lost 7 pounds. 05/23/2025 Vitamin D deficiency (ICD-10 - E55.9) He has been continued on his vitamin D supplements. 05/23/2025 BPH (benign prostati c hyperplasia) (ICD-10 - N40.0) He has risen from sleep twice a night lately as the edema in his lower extremities has resolved. 05/23/2025 Hyperlipidemia type II (ICD-10 - E78.01) His lipids have been stable and no change today was made in his regimen. 05/23/2025 Overweight (ICD-10 - E66.3) His body mass index today is 29 and he is no longer in the obese range. This is likely due to fluid loss from resolution of lower extremity edema. 05/23/2025 Environmental allergies (ICD-10 - Z91.09) He is having mild difficulty with allergies. I recommended an nondrowsy antihistamine. 05/23/2025 Depression (ICD-10 - F32.9) His depression is stable and controlled and no change in his regimen is necessary. 05/23/2025 Eczema (ICD-10 - L30.9) His eczema has improved with the use of clobetasol. He will continue to follow the instructions of the dermatologists. He will call me if he needs the medication refilled. 05/23/2025 Former smoker (ICD-1 0 - Z87.891) He is highly motivated not to smoke. We discussed a plan to prevent relapse in times of stress and illness. Plan Of Treatment Medication Medication Name Sig Start Date Stop Date Notes Benadryl 09/06/2024 Atenolol 50 MG TAKE 1 TABLET BY MOUTH EVERY DAY Famotidine 40 MG TK 1 T PO BID Oral Twice a day Multivitamin 07/03/2024 Norvasc 5 MG 1 tablet Orally Once a day amLODIPine Besylate 5 MG TAKE 1 TABLET BY MOUTH EVERY DAY Sertraline HCl 50 MG TAKE 1 TABLET BY MO UT EVERY MORNING Cephalexin 500 MG Oral Pending Test Test Name Order Date PROFILE, FASTING (COMPREHENSIVE METABOLI C) 05/23/2025 PSA, TOTAL 05/23/2025 CBC w DIFF 05/23/2025 Lipid Panel 05/23/2025 Next Appt Details Follow Up: As Scheduled, Alvina son: Annual Exam Provider Name:Wesley Chao, 07/05/2025 10:30:00 AM, [address] [place] [address] [facility], [place], [phone], Progress Notes * Wesley ACOSTADOB: [birth year] (80 yo M)Acc No.[id number]:05/23/2025 Progress Notes Patient: Wesley MORSE Provider: Billy Chao MD :1945 A ge:80 Y S ex:Male Date:05/23/2025 Address:[address] [place] [address], [address], [place], [id number] Subjective: * Chief Complaints: * L ightheadednessEczemaBenign prostatic hypertrophyAllergiesDepressionHyperlipidemiaPast.Peripheral edema * HPI: C OVID-19 Screening: Jimi hartley returns for evaluation of his eczema and weight and peripheral edema. There was no edema present on either lower extremity today. Skin was intact and looked healthy. There were patches of eczema distributed around his body, but the volume was much lower than usual. He said for the last 3 weeks he has been feeling lightheaded but then described symptoms of vertigo. He is felt some mild nausea as well. 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 Questions H ave you had any new onset fever, chills, cough, congestion, sore throat, shortness of breath, muscle aches? N o * ROS: G eneral/Constitutional: pain E czema, both legs. C hills d enies. F atigue a dmits. F ever d enies. E NT: Decreased hearing i n both ears. R espiratory: Cough d enies. C ardiovascular: Chest pain with exertion d enies. D yspnea on exertion?denies. S hortness of breath d enies. G astrointestinal: Constipation o ccasional. D ecreased appetite d enies. D iarrhea d enies. H eartburn d enies. N ausea d enies. R ectal bleeding d enies. V omiting d enies. H ematology: bruising d enies. p etechiae d enies. S wollen glands n one have been noted. G enitourinary: Frequent urination t wice a night. M usculoskeletal: Muscle aches d enies. P ainful joints d enies. S ciatica d enies. W eakness d enies. S kin: Itching d enies. R moody E czema has improved. S kin lesion(s) d enies. N eurologic: Difficulty speaking d enies. D izziness d enies.?Headache d enies. L ow back pain d enies. P sychiatric: Depressed mood d enies. * Medical History: * Surgical History: N o history * Hospitalization/Major Diagno stic Procedure: c ellulitis right leg 05/2021No history * Family History: F ather: 83 yrs, [...] dditional Findings: Tobacco Non-User E x-cigarette smoker H e has been to [facility] for 9 years. He has no children. 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 He was born in [place], [place]. * Medications: T akingNorvasc 5 MG Tablet 1 tablet Orally Once a day amLODIPine Besylate 5 MG Tablet TAKE 1 TABLET BY MOUTH EVERY DAY Famotidine 40 MG Tablet TK 1 T PO BID Oral Twice a day Multivitamin Atenolol 50 MG Tablet TAKE 1 TABLET BY MOUTH EVERY DAY Sertraline HCl 50 MG Tablet TAKE 1 TABLET BY MOUTH EVERY MORNING Taking Norvasc 5 MG Tablet 1 tablet Orally Once a day Taking amLODIPine Besylate 5 MG Tablet TAKE 1 TABLET BY MOUTH EVERY DAY Taking Famotidine 40 MG Tablet TK 1 T PO BID Oral Twice a day Taking Multivitamin Taking Atenolol 50 MG Tablet TAKE 1 TABLET BY MOUTH EVERY DAY Taking Sertraline HCl 50 MG Tablet TAKE 1 TABLET BY MOUTH EVERY MORNING Not-Taking/PRNBenadryl Cephalexin 500 MG Capsule Oral Medication List reviewed and reconciled with the patientNot-Taking/PRN Benadryl Not-Taking/PRN Cephalexin 500 MG Capsule Oral Medication List reviewed and reconciled with the patient * Allergies: T etracycline HClCod Tamia (Diagnostic): AllergyMoldDust MitesMupirocinBactrimPenicillinno[Allergies Verified] Objective: * Vitals: H t: 72, Wt:215, BMI:29.16, BP:136/80, HR:58, Temp:97.0, Ht-cm: 182.88, Wt-k.52. * Examination: G eneral Examination: GENERAL APPEARANCE: p leasant, well nourished, well developed, in no acute distress, calm and relaxed: overweight: man. HEAD: a traumatic, normocephalic. EYES: e zaida, perrla, anicteric, conjugate. EARS: n ormal. NOSE: s eptum intact. ORAL CAVITY: n ormal, unremarkable. NECK/THYROID: n o jugular venous distention, no carotid bruit, thyroid normal. LYMPH NODES: n o enlarged lymph nodes,spleen normal. SKIN: n o suspicious lesions, anicteric, Numerous patches of eczema but the skin is much improved compared to previous examinations. HEART: n o clicks, gallops, murmurs, or rubs, regular rhythm, S1, S2 normal, no s3, or vascular bruits. LUNGS: c lear to auscultation . BREASTS: no masses palpable bilaterally. ABDOMEN: b owel sounds normal, no ascites, no organomegaly, no mass: overweight. RECTAL EXAM: n ot examined. MUSCULOSKELETAL: M uch improved lower extremity edema. PERIPHERAL PULSES: n ormal. NEUROLOGIC: a lert and oriented, cranial nerves 2-12 grossly intact, deep tendon reflexes 2+ symmetrical, motor strength normal upper and lower extremities, sensory exam intact. PSYCH: a lert, oriented. Assessment: * Assessment: 1. P eripheral edema - R60.0 (Primary) N otes :Lower extremity peripheral edema has resolved. Routine followup will continue. He has lost 7 pounds. 2 . E ssential hypertension - I10 N otes :His blood pressure continues to be in the normal range and he feels well. He was given an appointment in the near future to return to measure the blood pressure again. He has been compliant with his medications and has lost 1 pound. 3 . V itamin D deficiency - E55.9 N otes :He has been continued on his vitamin D supplements. 4 . B PH (benign prostatic hyperplasia) - N40.0 N otes :He has risen from sleep twice a night lately as the edema in his lower extremities has resolved. 5 . H yperlipidemia type II - E78.01 N otes :His lipids have been stable and no change today was made in his regimen. 6 . O verweight - E66.3 N otes :His body mass index today is 29 and he is no longer in the obese range. This is likely due to fluid loss from resolution of lower extremity edema. 7 . E nvironmental allergies - Z91.09 N otes :He is having mild difficulty with allergies. I recommended an nondrowsy antihistamine. 8 . D epression - F32.9 N otes :His depression is stable and controlled and no change in his regimen is necessary. 9 . E czema - L30.9 N otes :His eczema has improved with the use of clobetasol. He will continue to follow the instructions of the dermatologists. He will call me if he needs the medication refilled. 1 0. F ormer smoker - Z87.891 N otes :He is highly motivated not to smoke. We discussed a plan to prevent relapse in times of stress and illness. Plan: * Treatment: 2. E ssential hypertension Continue amLODIPine Besylate Tablet, 5 MG, TAKE 1 TABLET BY MOUTH EVERY DAY; C ontinue Famotidine Tablet, 40 MG, TK 1 T PO BID, Oral, Twice a day; C ontinue Multivitamin; C ontinue Benadryl. L AB: PROFILE, FASTING (COMPREHENSIVE METABOLIC) L AB: PSA, TOTAL L AB: CBC w DIFF L AB: Lipid Panel 3. V itamin D deficiency L AB: PROFILE, FASTING (COMPREHENSIVE METABOLIC) L AB: PSA, TOTAL L AB: CBC w DIFF L AB: Lipid Panel 4. B PH (benign prostatic hyperplasia) L AB: PROFILE, FASTING (COMPREHENSIVE METABOLIC) L AB: PSA, TOTAL L AB: CBC w DIFF L AB: Lipid Panel 5. H yperlipidemia type II L AB: PROFILE, FASTING (COMPREHENSIVE METABOLIC) L AB: PSA, TOTAL L AB: CBC w DIFF L AB: Lipid Panel 6. O verweight L AB: PROFILE, FASTING (COMPREHENSIVE METABOLIC) L AB: PSA, TOTAL L AB: CBC w DIFF L AB: Lipid Panel 7. O thers Continue Atenolol Tablet, 50 MG, TAKE 1 TABLET BY MOUTH EVERY DAY; C ontinue Sertraline HCl Tablet, 50 MG, TAKE 1 TABLET BY MOUTH EVERY MORNING; C ontinue Cephalexin Capsule, 500 MG, Oral.? * Procedure Codes: * Preventive Medicine: Counseling: C are goal follow-up plan: Counseling for abnormal BMI given Y es Above Normal BMI Follow-up D ietary management education, guidance, and counseling, Dietary needs education S moking/Tobacco Use Patient counseled on the dangers of tobacco use and urged to quit. 0 05/23/2025 * Follow Up: A s Scheduled (Reason: Annual Exam) * Images: * Sign off status: Completed true * Provider: Billy Chao MD Date: 05/23/2025 Generated for Sherrie hui/Deborah/eTransmitting on: 0 06/29/2025 10:35 AM EDT History and Physical Notes * HPI (History of Present Illness) Category Sub-Category Detail Notes COVID-19 Screening Questions Have you had any new onset fever, chills, cough, congestion, sore throat, shortness of breath, muscle aches?: No Examination Category Sub-Category Detail Notes General Examination GENERAL APPEARANCE: pleasant , well nourished, well developed, in no acute distress, calm and relaxed: overweight: man HEAD: atraumatic, normocep halic EYES: eomi, perrla, anicte patt, conjugate EARS: normal NOSE: septum intact NECK/THYROID: no jugular venous di stention, no carotid bruit, thyroid normal HEART: no clicks, gallops, murmurs, or rubs, regular rhythm, S1, S2 normal, no s3, or vascular bruits LUNGS: clear to auscultatio n ABDOMEN: bowel sounds normal, no ascites, no organomegaly, no mass: overweight NEUROLOGIC: alert and oriented, cranial nerves 2-12 grossly intact, deep tendon reflexes 2+ symmetrical, motor strength normal upper and lower extremities, sensory exam intact SKIN: no suspicious lesion s, anicteric, Numerous patches of eczema but the skin is much improved compared to previous examinations PERIPHERAL PULSES: normal BREASTS: no masses palpable b ilaterally MUSCULOSKELETAL: Much improved lower extremity edema LYMPH NODES: no enlarged lymph no joshua,spleen normal RECTAL EXAM: not examined PSYCH: alert, oriented ORAL CAVITY: normal, unremarkable
--- OUTSIDE RECORDS SUMMARY | 2025-06-29 10:34 | XMS_ITS | Patient Health Record ---
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 Name Role Phone Wesley Chao Primary Care Provider Allergies Allergen (clinical drug ingredient) Drug/Non Drug Allergy documented on EMR Reaction Allergy Type Onset Date Status Mold Unknown Allergy Active Dust Mites Unknown Allergy Active banana allergenic extract Banana (Diagnostic) Unknown Drug Allergy Active tetracycline Tetracycline HCl Unknown Drug Allergy Active sulfamethoxazole / trimethoprim Bactrim Unknown Drug Allergy Active Fish derivative (substance) Cod fish (uncoded) Unknown Allergy Active Penicillin Unknown Drug Allergy Active mupirocin Mupirocin Unknown Drug Allergy Active Results Component Value Reference Range Notes URINE DIP STICK Reviewed date:07/03/2024 11:49:34 AM Interpretation: Performing Lab: Notes/Report: SG 1.010 1.005 - 1.025 pH 6.0 5.0 - 9.0 ALEXANDER Negative Negative - NIT Negative Negative - PRO 100 Negative - Trace GLU Negative Negative - KET Negative Negative - UBG 0.2 0.1 - 1.8 NHI Negative 0.2 - 1.3 BLD Negatige Negative - Complete Blood Count Auto Di ff Reviewed date:07/03/2024 11:14:23 AM Interpretation: Performing Lab:[facility], [address] [place] [id number] Notes/Report: White Blood Count 11.6 4.8-10.8 X10*3/uL Red Blood Count 4.90 4.60-5.80 X10*6/uL Hemoglobin 15.6 14.0-18.0 g/dl Hematocrit 44.0 42.0-52.0 % Mean Corpuscular Volume 89.8 80.0-98.0 fL Mean Corpuscular Hemoglobin 31.8 27.0-33.0 pg Mean Corpuscular HGB Conc 35.5 31.0-36.0 g/dl Red Cell Distribution Width 12.9 11.0-16.0 % Platelet Count 306 160-400 X10*3/uL Mean Platelet Volume 9.9 9.4-12.4 fL Neutrophils Percent Auto 74.5 45-73 % Imm Gran Pct Auto 0.4 0.0-0.4 % Lymphocytes Percent Auto 13.9 20-40 % Monocytes Percent Auto 6.8 2-11 % Eosinophils Percent Auto 3.8 0-4 % Basophils Percent Auto 0.6 0-2 % NRBC Pct Auto 0.0 0.0-0.2 /100WBC Neutrophils Absolute Auto 8.7 2.0-8.3 x10*3/uL Imm Gran Abs Auto 0.05 0.00-0.03 X10*3/uL Lymphocytes Absolute Auto 1.6 1.2-4.9 X10*3/uL Monocytes Absolute Auto 0.8 0.1-1.2 X10*3/uL Eosinophils Absolute Auto 0.4 0.0-0.4 X10*3/uL Basophils Absolute Auto 0.1 0.0-0.2 X10*3/uL NRBC Abs Auto 0.000 0.0-0.012 X10*3/uL Comprehensive Sutton. Panel Fa st Reviewed date:07/03/2024 11:14:23 AM Interpretation: Performing Lab:[facility], [address] [place] [address] Notes/Report: Sodium 141 135-145 mmol/L Potassium 3.7 3.3-5.1 mmol/L Slight Hemoly sis Chloride 105 96-108 mmol/L Carbon Dioxide 26 22-29 mmol/L Anion Gap 14 12-20 Blood Urea Nitrogen 15 9-16 mg/dL Creatinine 1.22 0.5-1.4 mg/dL Estimated Glomerular Filt Rate 57 NOTE: For -[place] individuals, multiply the result by 1.210. Chronic Kidney Disease: Estimated GFR < 60 mL/min/1.73m2 Severe Kidney Disease: Estimated GFR < 15 mL/min/1.73m2 Glucose Fasting 105 60-99 mg/dL A fasting glucose from 100-125 mg/dl is considered impaired (pre-diabetes). Calcium 9.5 8.4-10.2 mg/dL Bilirubin Total 0.8 0.0-1.0 mg/dL Aspartate Amino Transferase 20 5-37 U/L Slight Hemolysis Alanine Aminotransferase 13 0-40 U/L Total Protein 8.4 6.5-8.0 g/dL Albumin Level 4.4 3.5-5.0 g/dL Alkaline Phosphatase 87 39-117 U/L Lipid Panel Reviewed date:07/03/2024 11:14:23 AM Interpretation: Performing Lab:[address] [address] Notes/Report: Triglycerides 138 <150 mg/dL Desirable Triglyceride: less than 150 mg/dL Borderline High Triglyceride 150-199 mg/dL High Triglyceride: 200-499 mg/dL Very High Triglyceride: greater than or equal to 5OO mg/dL Cholesterol 163 <200 mg/dL Desirable Cholesterol: less than 200 mg/dL Borderline High Cholesterol: 200-239 mg/dL High Cholesterol: greater than 239 mg/dL LDL Cholesterol Calculated 91 <100 mg/dL Desirable LDL: less than 100 mg/dL Near Optimal/Above Optimal LDL: 110-129 mg/dL Borderline High LDL: 130-159 mg/dL High LDL: 160-189 mg/dL Very High LDL: greater than or equal to 190 mg/dL HDL Cholesterol 45 >40 mg/dL Desirable HDL: greater than 40 mg/dL Note: This HDL assay may give artificially low results in patients with liver disease. Prostate Specific Antigen Reviewed date:07/03/2024 11:14:23 AM Interpretation: Performing Lab:[address] [address] Notes/Report: Prostate Specific Antigen 3.27 <0.05-4.0 ng/mL PSA methodology: Blum Alinity i Chemiluminescent Microparticle Immunoassay (CMIA) Complete Blood Count Auto Di ff Reviewed date:11/03/2024 09:02:05 PM Interpretation: Performing Lab:[address] [place] [address] Notes/Report: White Blood Count 13.9 4.8-10.8 X10*3/uL Red Blood Count 4.96 4.60-5.80 X10*6/uL Hemoglobin 14.7 14.0-18.0 g/dl Hematocrit 41.4 42.0-52.0 % Mean Corpuscular Volume 83.5 80.0-98.0 fL Mean Corpuscular Hemoglobin 29.6 27.0-33.0 pg Mean Corpuscular HGB Conc 35.5 31.0-36.0 g/dl Red Cell Distribution Width 13.2 11.0-16.0 % Platelet Count 335 160-400 X10*3/uL Mean Platelet Volume 8.9 9.4-12.4 fL Neutrophils Percent Auto 73.0 45-73 % Imm Gran Pct Auto 0.5 0.0-0.4 % Lymphocytes Percent Auto 14.1 20-40 % Monocytes Percent Auto 7.8 2-11 % Eosinophils Percent Auto 4.1 0-4 % Basophils Percent Auto 0.5 0-2 % NRBC Pct Auto 0.0 0.0-0.2 /100WBC Neutrophils Absolute Auto 10.2 2.0-8.3 x10*3/uL Imm Gran Abs Auto 0.07 0.00-0.03 X10*3/uL Lymphocytes Absolute Auto 2.0 1.2-4.9 X10*3/uL Monocytes Absolute Auto 1.1 0.1-1.2 X10*3/uL Eosinophils Absolute Auto 0.6 0.0-0.4 X10*3/uL Basophils Absolute Auto 0.1 0.0-0.2 X10*3/uL NRBC Abs Auto 0.000 0.0-0.012 X10*3/uL Comprehensive Sutton. Panel Fa st Reviewed date:11/03/2024 09:02:05 PM Interpretation: Performing Lab:[facility], [address] [place] [phone] Notes/Report: Sodium 138 135-145 mmol/L Potassium 3.4 3.3-5.1 mmol/L Chloride 102 96-108 mmol/L Carbon Dioxide 28 22-29 mmol/L Anion Gap 11 12-20 Blood Urea Nitrogen 14 9-16 mg/dL Creatinine 1.18 0.5-1.4 mg/dL Estimated Glomerular Filt Rate 60 Chronic Kidney Disease: Estimated GFR < 60 mL/min/1.73m2 Severe Kidney Disease: Estimated GFR < 15 mL/min/1.73m2 Glucose Fasting 124 60-99 mg/dL A fasting glucose from 100-125 mg/dl is considered impaired (pre-diabetes). Calcium 9.3 8.4-10.2 mg/dL Bilirubin Total 0.7 0.0-1.0 mg/dL Aspartate Amino Transferase 20 5-37 U/L Alanine Aminotransferase 11 0-40 U/L Total Protein 8.2 6.5-8.0 g/dL Albumin Level 4.1 3.5-5.0 g/dL Alkaline Phosphatase 77 39-117 U/L Lipid Panel Reviewed date:11/03/2024 09:02:05 PM Interpretation: Performing Lab:[address] [address] Notes/Report: Triglycerides 140 <150 mg/dL Desirable Triglyceride: less than 150 mg/dL Borderline High Triglyceride 150-199 mg/dL High Triglyceride: 200-499 mg/dL Very High Triglyceride: greater than or equal to 5OO mg/dL Cholesterol 163 <200 mg/dL Desirable Cholesterol: less than 200 mg/dL Borderline High Cholesterol: 200-239 mg/dL High Cholesterol: greater than 239 mg/dL LDL Cholesterol Calculated 85 <100 mg/dL Desirable LDL: less than 100 mg/dL Near Optimal/Above Optimal LDL: 110-129 mg/dL Borderline High LDL: 130-159 mg/dL High LDL: 160-189 mg/dL Very High LDL: greater than or equal to 190 mg/dL HDL Cholesterol 50 >40 mg/dL Desirable HDL: greater than 40 mg/dL Note: This HDL assay may give artificially low results in patients with liver disease. Prostate Specific Antigen Reviewed date:11/03/2024 09:02:05 PM Interpretation: Performing Lab:[address] [address] Notes/Report: Prostate Specific Antigen 5.60 <0.05-4.0 ng/mL PSA methodology: Blum Alinity i Chemiluminescent Microparticle Immunoassay (CMIA) US venous duplex LE LT Reviewed date:11/18/2024 04:56:34 PM Interpretation: Performing Lab: Notes/Report: [address] [address] Ultrasound Report Signed Patient: Wesley Artis MR#: [id number] 1466 : 1945 Acct:[id number] Age/Sex: 79 / M ADM Date: 11/13/24 Loc: HO. Attending Dr: Wesley Chao MD Ordering Physician: Wesley Chao MD Date of Service: 11/13/24 Procedure(s): US venous duplex LE LT Accession Number(s): [id number] cc: Wesley Chao MD EXAMINATION: US LOWER EXTREMITY VEINS LIMITED FOLLOW UP LEFT HISTORY: left leg pain and redness COMPARISON: Comparison is made with the prior examination dated 02/23/2017. TECHNIQUE: Duplex and color Doppler sonographic examination of the deep venous system of the left lower extremity was performed. FINDINGS: The common femoral, superficial femoral, and popliteal veins are patent demonstrating normal compressibility, spontaneous flow, and augmentation. There is a normal color and spectral Doppler waveform appearance of the visualized deep venous system above the knee. The posterior tibial and peroneal veins are patent. There are prominent lymph nodes in the left groin measuring up to 2.5 cm in length, but demonstrating thin a thin cortex and prominent fatty hilum. US/US venous duplex LE LT IMPRESSION: No evidence of acute DVT in the left lower extremity. Electronically signed by: Wesley Murray MD 11/13/2024 11:04 AM [facility] Dictated By: Wesley Murray MD Signed By: <Electronically signed by Wesley Murray MD in OV> 11/13/24 1104 DD/ 1049 TD/TT: 11/13/24 1054 Sand Sifter: [address] [address] Ultrasound Report Signed Patient: Terell Artis MR#: [id number] 1466 : 1945 Acct:[id number] Age/Sex: 79 / M ADM Date: 11/13/24 Loc: HO. Attending Dr: Wesley Chao MD Ordering Physician: Wesley Chao MD Date of Service: 11/13/24 Procedure(s): US shonda ous duplex LE LT Accession Number(s): [id number] cc: Wesley Chao MD EXAMINATION: US LOWE R EXTREMITY VEINS LIMITED FOLLOW UP LEFT HISTORY: left leg pa in and redness COMPARISON: Comparis on is made with the prior examination dated 02/23/2017. TECHNIQUE: Duplex an d color Doppler sonographic examination of the deep venous system o f the left lower extremity was performed. FINDINGS: The common femoral, superficial femoral, and popliteal veins are patent demonstrating normal compressibility, spontaneous flow, and augmentation. There is a normal color and spectral Doppler waveform appearance of the visualized deep venous system above the knee. The posterior tibial and peroneal veins are patent. There are prominent lymph nodes in the l eft groin measuring up to 2.5 cm in length, but demonstrating thin a thin cortex and prominent fatty hilum. ____ U S/US venous duplex LE LT IMPRESSION: No evidence of acute DVT in the left lower extremity. Electronically lonnie d by: Wesley Murray MD 11/13/2024 11:04 AM [facility] Dictated By: Wesley Murray MD Signed By: <Electronically signed by Wesley Murray MD in OV> 11/13/24 1104 DD/ 1049 TD/TT: 11/13/24 1054 Sand Sifter: Pathology Reviewed date:01/19/2025 08:19:51 AM Interpretation: Performing Lab:[facility], [address] [place] [address] Notes/Report: ---- Name: Wesley Artis Lorie Age/Sex: 79/M : 1945 Unit#: [id number] Attend Dr: Wesley Carrera MD Re11/28/24 Status : [facility] Location: [facility] Disch: ---- SPEC : [id number] RECD: 11/28/24 STATUS: ROSA CARABALLO NUM: [id number] CASS: 11/28/[address] [facility] [address]: Wesley Carrera MD ENTERED: 11/28/24 32 SP TYPE: Surgical OTHR DR: Wesley Chao MD ORDERED: Gross Micro L4/4, Eso bx BA w/exc COMMENTS: 16 unstain ed slides (B D) sent to [facility] for TissueCypher on 12/06/24. Addendum Addendum 1 Entered: 12/26/24144 (B): TissueCypher results: Risk Class:? Low Risk Score:? 4.5 (ra nge 0 ? 10) 5-year probability o f progression:? 4% See entire scanned report in EMR - report/pathology section (camera icon). Note: No report issu ed for D: Per discussion with [facility], the score was lower than B. Addendum Signed (signature on file) Terri Alan 12/26/24 1449 ---- Diagnosis A. Esophagogastric junction, at 36 cm, biopsy: Columnar mucosa with mild inflammation and focal intestinal metaplasia; negative for dysplasia (see comment). B. Esophagus, at 34 cm, biopsy: Columnar mucosa with mild inflammation, reactive and hyperplastic changes , focal intestinal metaplasia consistent with Cao's mucosa, and a minute focus of low grade dysplasia (see comment). C. Esophagus, at 32 cm, biopsy: Columnar mucosa with mild inflammation, reactive and hyperplastic changes , and intestinal metaplasia consistent with Cao's mucosa; negative for dysplasia. D. Esophagus, at 30 cm, biopsy: Squamous mucosa with many intraepithelial neutrophils and few intraepithel ial eosinophils (up to 2 per high-power field) consistent with esophagitis, and columnar mucosa with chronic active inflammation, hyperplastic and reactive changes, intestinal metaplasia consistent with Cao's mucosa, and foci of inflamed atypical epithelium with complex architecture, indefinite for dysplasia, concerning for high grade dysplasia (see comment). Comment: CONTINUED ON NEXT PAGE ---- Name: Wesley Artis Age/Sex: 79/M : 1945 Unit#: [id number] Attend Dr: Wesley Carrera MD Re11/28/24 Status : [facility] Location: [facility] Disch: ---- SPEC : [id number] RECD: 11/28/24 STATUS: ROSA CARABALLO NUM: [id number] CASS: 11/28/[address] [facility] [address]: Wesley Carrera MD ENTERED: 11/28/24-10 32 SP TYPE: Surgical OTHR DR: Wesley Chao MD ORDERED: Gross Micro L4/4, Eso bx BA w/exc COMMENTS: 16 unstain ed slides (B D) sent to [facility] for TissueCypher on 12/06/24. Diagnosis (Continued) (A): These findings are consistent with Cao?s esophagus if the biopsies were taken from above the anato dc gastroesophageal junction. Clinical and endoscopic correlation is advised. (B and D): Follow-up and clinical correlation is necessary. TissueCypher testing pending; addendum to follow. 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 Material Received A. EG junction at 36 cm B. Esophagus at 34 cm C. Esophagus at 32 cm D. Esophagus at 30 cm Gross Description Received in four parts. Part A: Received in formalin labeled ?EG junction at 36 cm? are 4 ferguson-white and beasley-pink irregular tissue fragments each measuring 0.25 cm, submitted in toto in a cassette labeled A. Part B: Received in formalin labeled ?esophagus at 34 cm? are 4 beasley-pink irregular tissue fragments ranging fr om 0.25-0.35 cm, submitted in toto in a cassette labeled B. Part C: Received in formalin labeled ?esophagus fat 32 cm are 6 beasley-pink irregular tissue fragments each measu ring 0.25 cm, submitted in toto in a cassette labeled C. Part D: Received in formalin labeled ?esophagus at 30 cm? are 5 beasley-pink irregular tissue fragments each measu ring 0.25 cm, submitted in toto in a cassette labeled D. CEDS CONTINUED ON NEXT PAGE ---- Name: Wesley Artis Age/Sex: 79/M : 1945 Unit#: [id number] Attend Dr: Wesley Carrera MD Re11/28/24 [place] [facility] [place]: [facility] Disch: ---- SPEC : [id number] RECD: 11/28/24 STATUS: ROSA CARABALLO NUM: [id number] CASS: 11/28/[address]: Wesley Carrera MD ENTERED: 11/28/24 32 SP TYPE: Surgical OTHR DR: Wesley Chao MD ORDERED: Gross Micro L4/4, Eso bx BA w/exc COMMENTS: 16 unstain ed slides (B D) sent to [facility] for TissueCypher on 12/06/24. Gross Description (Continued) This case was review ed intradepartmentally, multiple pathologists. Case discussed with Dr. Carrera by secure text by Dr. Phillips on 12/03/2024 at 1:40 pm. Copies To: Wesley Chao MD [address] [place] [address], [address] [place] [id number] Wesley Carrera MD [facility] [address] [place] [address] ---- Signed (signature on file) Terri Phillips 12/05/24 1626 ---- END OF REPORT Reason For Referral Reason Consult and treat Diagnosis 1 Hearing loss (H91.90 ) Referral Organization Wesley Chao III, MD Referring Provider First Name Wesley Referring Provider Last Name Chao Referring Provider [facility] Internal [facility] Referred Provider Specialty Audiologists General Notes Alysa Bright 08/02 01:26:01 PM >Called patient left message questioning if he was able to contact his parts analyst for an appointment or would like a new referral elsewhere, Alysa Maldonado 08/16/2024 11:12:43 AM > patient is currently looking for his other hearing aid as he has just moved patient will call and make an appointment as soon as he finds his other hearing aid.Marc Suzanne CMA 09/24/2024 09:51:36 AM >Patient called stated he has appt with Dr Nerissa Liu parts analyst for 11/02/2024 at 9:30am Referral Priority Routine Referral Appointment Date 11/02/2024 Reason Consult and Treat Diagnosis 1 Eczema (L30.9) Referral Organization Wesley Chao III, MD Referring Provider First Name Wesley Referring Provider Last Name Chao Referring Provider [facility] Internal [facility] Referred Provider [facility] Referred Provider Specialty Dermatology General Notes Alysa Bright 07/05 10:20:42 AM > Referral faxed with progress note Referral Priority Routine Referral Appointment Date 08/16/2024 Reason Consult and Treat Diagnosis 1 Hearing loss (H91.90 ) Referral Organization Wesley Chao III, MD Referring Provider First Name Wesley Referring Provider Last Name Jeremie Referring Provider [facility] Referred Provider Theresa Liu Referred Provider Specialty Audiologists General Notes Alysa Maldonado 11/05/2024 01:20:15 PM > faxed referral and attachments per request of patient and Dr. Theresa Liu. Patient was seen in office on 11/02/24. Patient was in need of an out of network insurance referral and pcp referral. b Referral Priority Routine Referral Appointment Date 11/02/2024 Reason Evaluate and Treat Lymphedema of the left lower leg Diagnosis 1 Lymphedema (I89.0) Referral Organization Wesley Chao III, MD Referring Provider First Name Wesley Referring Provider Last Name Jeremie [facility] Referred Organization [facility] nter Referred Provider [facility] Referred Address [address] [place] [address],[place], [id number], Referred Provider Specialty Unknown General Notes D, 11/20/2024 10:46:43 AM > Patient is scheduled to go into wound care on 12/03/24 @ 11am. patient was offered sooner appointments but stated he was unable to attend those available times. Referral Priority Routine Referral Appointment Date 12/03/2024 Reason Evaluate and Treat Needs Cochlear Implant Per Dr. Liu Second Request Diagnosis 1 Hearing loss (H91.90 ) Referral Organization Wesley Chao III, MD Referring Provider First Name Wesley Referring Provider Last Name Jeremie [facility] Referred Provider [facility], [facility] Referred Provider Specialty Otolaryngolo gy General Notes D 11/19/2024 01:20:18 PM > Referral faxed with progress note, cover sheet and report from parts analyst, Erica 03/07/2025 03:38:32 PM > ENT stated they have not scheduled the patient. Referral was refaxed. Patient was called and advised to call to schedule an appointment., Alysa Maldonado 03/13/2025 02:27:56 PM > patient is scheduled with Dr. Terry for 12/04/2025 @ 9am in [place] office Referral Priority Routine Referral Appointment Date 12/04/2025 Reason Consult and Treat Questioning Neoplasm of Left [place] Diagnosis 1 Skin lesion (L98.9) Referral Organization Wesley Chao III, MD Referring Provider First Name Wesley Referring Provider Last Name Jeremie Referring Provider Speciality Internal edicine Referred Provider [facility] ([place]) Referred Provider Specialty Dermatology General Notes D Alysa 12/24/2024 10:58:36 AM > Referral faxed with progress note Referral Priority Routine Referral Appointment Date 03/13/2025 Medications Medication SIG (Take, Route, Frequency, Duration) Notes Start Date End Date Status amLODIPine Besylate 5 MG TAKE 1 TABLET B Y MOUTH EVERY DAY Active Benadryl 09/06/2024 Active Atenolol 50 MG TAKE 1 TABLET BY CLAYTON TH EVERY DAY Active Famotidine 40 MG TK 1 T PO BID Oral T wice a day Active Multivitamin 07/03/2024 Active Sertraline HCl 50 MG TAKE 1 TABLET BY MO UTH EVERY MORNING Active Cephalexin 500 MG Oral Ac tive Norvasc 5 MG 1 tablet Orally Once a day Active Immunizations Vaccine Route Administration Date Status Comme nts Influenza IM Intramuscular 11/09/2012 Administered Influenza IM Intramuscular 08/23/2013 Administered Influenza IM Intramuscular 07/11/2014 Administered Influenza IM Intramuscular 11/20/2015 Administered Influenza IM Intramuscular 08/11/2016 Administered Influenza no Preserv 3 and > Unknown 08/02/2017 Administered Influenza-iiv4 p-free high dose Unknown 06/06/2024 Administered Social History Tobacco Use: Social History Observation Description Date Details (start date - stop date) Former Smoker NA - NA Sex Assigned At : Social History Observation Description Sex Assigned At Male Tobacco Use/Smoking Question Answer Notes Patient is a former smoker How long has it been since you last smoked? > 10 years Additional Findings: Tobacco Non-User Ex-cigaret te smoker Alcohol Screen Question Answer Notes Did you have a drink containing alcohol in the p ast year? No Points 0 Interpretation Negative Problems Problem Type SNOMED Code ICD Code Onset Dates Problem Status W/U Status Risk Notes Problem 0912393 Former smoker (Z87.891) Active confirmed He is highly motivated not to smoke. We discussed a plan to prevent relapse in times of stress and illness. Problem 394750749 Overweight (E66.3) Active confirmed His body mass index today is 29 and he is no longer in the obese range. This is likely due to fluid loss from resolution of lower extremity edema. Problem 72790641 Depression (F32.9) Active confirmed His depression is stable and controlled and no change in his regimen is necessary. Problem Benign prostatic hyperplasia (638452325) BPH (benign prostatic hyperplasia) (N40.0) Active confirmed He has risen from sleep twice a night lately as the edema in his lower extremities has resolved. Problem 34361787 Essential hypertension (I10) Active confirmed His blood pressure continues to be in the normal range and he feels well. He was given an appointment in the near future to return to measure the blood pressure again. He has been compliant with his medications and has lost 1 pound. Problem 258818963 Environmental allergies (Z91.09) Active confirmed He is having mild difficulty with allergies. I recommended an nondrowsy antihistamine. Problem 838252449 Vertigo (R42) Active confirmed He continues to have the intermittent benign positional vertigo. Problem Hearing loss (14671344) Hearing loss (H91.90) Active confirmed His hearing loss is stable but he has significant issues recently with vertigo and tinnitus. He will continue with ENT.His parts analyst is recommended a cochlear implant. I have referred him to Dr. Terry at [facility]. Problem 651472973 Barretts esophagus (K22.70) Active confirmed His next endoscopy is scheduled for November 2024. He denies any dysphagia or change in his heartburn. Problem 56159461 Eczema (L30.9) Active confirmed His eczema has improved with the use of clobetasol. He will continue to follow the instructions of the dermatologists . He will call me if he needs the medication refilled. Problem 341241382 Cataract (H26.9) Active confirmed Problem 93565275 Vitamin D deficiency (E55.9) Active confirmed He has been continued on his vitamin D supplements. Problem Pure hypercholesterolemi a (671751553) Hyperlipidemia type II (E78.01) Active confirmed His lipids have been stable and no change today was made in his regimen. Problem Lymphedema (01047038) Lymphedema (I89.0) Active confirmed He continues to have edema below his knees and has 6 or 7 (areas on each leg. He was referred to the wound clinic at [facility] or compression wrappings and alginate.The wound on his left ankle is much improved. Problem 559736514 Skin lesion of left leg (L98.9) Active confirmed The superficial lacerations around the ankle are healing well and he has been to the wound clinic. Over the middle of his left [place] ri[place] there is a hard raised 1 cm area. He is going to the cloud engineer next week. Problem [id number] Peripheral edema (R60.0) Active confirmed Lower extremity peripheral edema has resolved. Routine followup will continue. He has lost 7 pounds. Problem [id number] Superficial laceration (T14.8XXA) Active confirmed The bleeding is coming from a small slit in the skin in the perineal body. He is not on blood thinners. He was unable to explain how this happened. The wound is very sharp and the edges are approximated. He will apply triple antibiotic 4 times a day and use a Band-Aid on the area. Follow-up visit was arranged. Vital Signs Heart Rate 58 /min 05/23/2025 Temperature 97.0 degrees Fahrenheit 05/23/2025 Oximetry 96 % 01/10/2025 Blood pressure diastolic 80 mm Hg 05/23/2025 Height 72 in 05/23/2025 Blood pressure systolic 136 mm Hg 05/23/2025 Weight 215 lbs 05/23/2025 BMI 29.16 kg/m2 05/23/2025 Encounters Encounter Location Date Provider Diagnosis Wesley Chao III, MD [address] [place] [address] [place] [address] 07/03/2024 Wesley Chao Essential hypertensi on I10 ; Former smoker Z87.891 ; Eczema L30.9 ; Depression F32.9 ; Hyperlipidemia type II E78.0 ; Barretts esophagus K22.70 ; Environmental allergies Z91.09 ; BPH (benign prostatic hyperplasia) N40.0 and Overweight E66.3 Wesley Chao III, MD [address] [place] [address] [place] [address] 09/06/2024 Wesley Chao Essential hypertensi on I10 ; BPH (benign prostatic hyperplasia) N40.0 ; Hyperlipidemia type II E78.01 ; Overweight E66.3 ; Depression F32.9 ; Former smoker Z87.891 ; Eczema L30.9 ; Barretts esophagus K22.70 and Hearing loss H91.90 Wesley Chao III, MD [address] [place] [address] [place] [address] 11/07/2024 Wesley Chao Essential hypertensi on I10 ; Superficial laceration T14.8XXA ; Environmental allergies Z91.09 ; Eczema L30.9 ; Hearing loss H91.90 ; Former smoker Z87.891 and Overweight E66.3 Wesley Chao III, MD [address] [place] [address] [place] [address] 11/16/2024 Wesley Chao Essential hypertensi on I10 ; Overweight E66.3 ; Eczema L30.9 ; Hearing loss H91.90 ; Lymphedema I89.0 ; Superficial laceration T14.8XXA ; Barretts esophagus K22.70 ; Vitamin D deficiency E55.9 and Former smoker Z87.891 Wesley Chao III, MD [address] [place] [address] [place] [address] 12/18/2024 Wesley Chao Essential hypertensi on I10 ; Skin lesion of left leg L98.9 ; Environmental allergies Z91.09 ; Eczema L30.9 ; Vitamin D deficiency E55.9 ; Former smoker Z87.891 ; BPH (benign prostatic hyperplasia) N40.0 and Vertigo R42 Wesley Chao III, MD [address] [place] [address] [place] [address] 01/09/2025 Wesley Chao Skin lesion of left leg L98.9 ; Lymphedema I89.0 ; Vertigo R42 ; Hearing loss H91.90 ; Former smoker Z87.891 and Overweight E66.3 Wesley Chao III, MD [address] [place] [address] [place] [address] 01/10/2025 Wesley Chao Essential hypertensi on I10 ; Skin lesion of left leg L98.9 ; Environmental allergies Z91.09 ; Depression F32.9 ; Eczema L30.9 ; BPH (benign prostatic hyperplasia) N40.0 ; Hearing loss H91.90 and Former smoker Z87.891 Wesley Chao III, MD [address] [place] [address] [place] [address] 03/12/2025 Wesley Chao Essential hypertensi on I10 ; Environmental allergies Z91.09 ; Depression F32.9 ; Eczema L30.9 ; Vitamin D deficiency E55.9 ; BPH (benign prostatic hyperplasia) N40.0 ; Hyperlipidemia type II E78.01 ; Hearing loss H91.90 ; Skin lesion of left leg L98.9 and Former smoker Z87.891 Wesley Chao III, MD [address] [place] [address] [place] [address] 05/23/2025 Wesley Chao Essential hypertensi on I10 ; Peripheral edema R60.0 ; Vitamin D deficiency E55.9 ; BPH (benign prostatic hyperplasia) N40.0 ; Hyperlipidemia type II E78.01 ; Overweight E66.3 ; Environmental allergies Z91.09 ; Depression F32.9 ; Eczema L30.9 and Former smoker Z87.891 Wesley Chao III, MD [address] [place] [address] [place] [address] 11/02/2024 Wesley Chao III, MD [address] [place] [address] [place] [address] 11/07/2024 Wesley Chao III, MD [address] [place] [address] [place] [address] 02/11/2025 Wesley Chao III, MD [address] [place] [address] [place] [address] 04/24/2025 Wesley Chao III, MD [address] [place] [address] [place] [address] 04/24/2025 Wesley Chao III, MD [address] [place] [address] [place] [address] 12/12/2024 Wesley Chao III, MD [address] [place] [address] [place] [address] 05/12/2025 Wesley Chao Assessments Encounter Date Diagnosis (ICD Code) Assessment Notes Treatment Notes Treatment Clinical Notes 07/03/2024 Former smoker (ICD-10 - Z87.891) He is highly motivated not to smoke. We discussed a plan to prevent relapse in times of stress and illness. 07/03/2024 Essential hypertension (ICD-10 - I10) His blood pressure today is 135/80 and he feels well. No change in his regimen was made. 09/06/2024 BPH (benign prostatic hyperplasia) (ICD-10 - N40.0) He has begun to rise from sleep 3 times a night. We discussed lifestyle modifications he may to relieve the nocturia. 09/06/2024 Essential hypertension (ICD-10 - I10) His blood pressure today is 148/82 and he feels well. He was given an appointment in the near future to return to measure the blood pressure again. His medications will need adjustment if it does not return to its previous level. 11/07/2024 Essential hypertension (ICD-10 - I10) His blood pressure today is 148/82 and he feels well. He was given an appointment in the near future to return to measure the blood pressure again. His medications will need adjustment if it does not return to its previous level. 11/07/2024 Superficial laceration (ICD-10 - T14.8XXA) The bleeding is coming from a small slit in the skin in the perineal body. He is not on blood thinners. He was unable to explain how this happened. The wound is very sharp and the edges are approximated. He will apply triple antibiotic 4 times a day and use a Band-Aid on the area. Follow-up visit was arranged. 11/16/2024 Overweight (ICD-10 - E66.3) He has lost weight. His legs remain edematous. We discussed ways in which to reduce the edema and how to use his compression hose. A repeat office visit was arranged. He may need an alteration in his diuretic therapy 11/16/2024 Essential hypertension (ICD-10 - I10) His blood pressure today is 110/74 and he feels well. He was given an appointment in the near future to return to measure the blood pressure again. He has been compliant with his medications and has lost 1 pound. 12/18/2024 Essential hypertension (ICD-10 - I10) His blood pressure continues to be in the normal range and he feels well. He was given an appointment in the near future to return to measure the blood pressure again. He has been compliant with his medications and has lost 1 pound. 12/18/2024 Skin lesion of left leg (ICD-10 - L98.9) The superficial lacerations around the ankle are healing well and he has been to the wound clinic. Over the middle of his left del ri[place] there is a hard raised 1 cm area. I have sent him to the cloud engineer for evaluation of this. 01/09/2025 Lymphedema (ICD-10 - I89.0) He continues to have edema below his knees and has 6 or 7 (areas on each leg. He was referred to the wound clinic at [facility] or compression wrappings and alginate.The wound on his left ankle is much improved. 01/09/2025 Skin lesion of left leg (ICD-10 - L98.9) The superficial lacerations around the ankle are healing well and he has been to the wound clinic. Over the middle of his left [place] there is a hard raised 1 cm area. I have sent him to the cloud engineer for evaluation of this. 01/10/2025 Essential hypertension (ICD-10 - I10) His blood pressure continues to be in the normal range and he feels well. He was given an appointment in the near future to return to measure the blood pressure again. He has been compliant with his medications and has lost 1 pound. 01/10/2025 Skin lesion of left leg (ICD-10 - L98.9) The superficial lacerations around the ankle are healing well and he has been to the wound clinic. Over the middle of his left [place] there is a hard raised 1 cm area. I have sent him to the cloud engineer for evaluation of this. 03/12/2025 Essential hypertension (ICD-10 - I10) His blood pressure continues to be in the normal range and he feels well. He was given an appointment in the near future to return to measure the blood pressure again. He has been compliant with his medications and has lost 1 pound. 03/12/2025 Environmental allergies (ICD-10 - Z91.09) He is having mild difficulty with allergies. I recommended an nondrowsy antihistamine. 05/23/2025 Essential hypertension (ICD-10 - I10) His [...] will continue. He has lost 7 pounds. 07/03/2024 Eczema (ICD-10 - L30.9) His eczema has improved with the use of clobetasol. He will continue to follow the instructions of the dermatologists. He will call me if he needs the medication refilled. 09/06/2024 Hyperlipidemia type II (ICD-10 - E78.01) His lipids are currently stable and no change in his regimen was needed. 11/07/2024 Environmental allergies (ICD-10 - Z91.09) He is having mild difficulty with allergies. I recommended an nondrowsy antihistamine. 11/16/2024 Eczema (ICD-10 - L30.9) His eczema has improved with the use of clobetasol. He will continue to follow the instructions of the dermatologists. He will call me if he needs the medication refilled. 12/18/2024 Environmental allergies (ICD-10 - Z91.09) He is having mild difficulty with allergies. I recommended an nondrowsy antihistamine. 01/09/2025 Vertigo (ICD-10 - R42) He continues to have the intermittent benign positional vertigo. 01/10/2025 Environmental allergies (ICD-10 - Z91.09) He is having mild difficulty with allergies. I recommended an nondrowsy antihistamine. 03/12/2025 Depression (ICD-10 - F32.9) His depression is stable and controlled and no change in his regimen is necessary. 05/23/2025 Vitamin D deficiency (ICD-10 - E55.9) He has been continued on his vitamin D supplements. 07/03/2024 Depression (ICD-10 - F32.9) His depression is stable and controlled and no change in his regimen is necessary. 09/06/2024 Overweight (ICD-10 - E66.3) He has lost weight. His legs remain edematous. We discussed ways in which to reduce the edema and how to use his compression hose. A repeat office visit was arranged. He may need an alteration in his diuretic therapy 11/07/2024 Eczema (ICD-10 - L30.9) His eczema has improved with the use of clobetasol. He will continue to follow the instructions of the dermatologists. He will call me if he needs the medication refilled. 11/16/2024 Hearing loss (ICD-10 - H91.90) His hearing loss is stable but he has significant issues recently with vertigo and tinnitus. He will continue with ENT.His parts analyst is recommended a cochlear implant. I have referred him to Dr. Terry at [facility]. 12/18/2024 Eczema (ICD-10 - L30.9) His eczema has improved with the use of clobetasol. He will continue to follow the instructions of the dermatologists. He will call me if he needs the medication refilled. 01/09/2025 Hearing loss (ICD-10 - H91.90) His hearing loss is stable but he has significant issues recently with vertigo and tinnitus. He will continue with ENT.His parts analyst is recommended a cochlear implant. I have referred him to Dr. Terry at [facility]. 01/10/2025 Depression (ICD-10 - F32.9) His depression is stable and controlled and no change in his regimen is necessary. 03/12/2025 Eczema (ICD-10 - L30.9) His eczema has improved with the use of clobetasol. He will continue to follow the instructions of the dermatologists. He will call me if he needs the medication refilled. 05/23/2025 BPH (benign prostatic hyperplasia) (ICD-10 - N40.0) He has risen from sleep twice a night lately as the edema in his lower extremities has resolved. 07/03/2024 Hyperlipidemia type II (ICD-10 - E78.0) He has not had blood work done recently. A fasting lipid profile has been ordered with a comprehensive database. 09/06/2024 Depression (ICD-10 - F32.9) His depression is stable and controlled and no change in his regimen is necessary. 11/07/2024 Hearing loss (ICD-10 - H91.90) His hearing loss is stable but he has significant issues recently with vertigo and tinnitus. He will continue with ENT. 11/16/2024 Lymphedema (ICD-10 - I89.0) He continues to have edema below his knees and has 6 or 7 (areas on each leg. He was referred to the wound clinic at [facility] or compression wrappings and alginate. 12/18/2024 Vitamin D deficiency (ICD-10 - E55.9) No current blood work is available. He will continue current medications. Vitamin D level will be ordered. 01/09/2025 Former smoker (ICD-10 - Z87.891) He is highly motivated not to smoke. We discussed a plan to prevent relapse in times of stress and illness. 01/10/2025 Eczema (ICD-10 - L30.9) His eczema has improved with the use of clobetasol. He will continue to follow the instructions of the dermatologists. He will call me if he needs the medication refilled. 03/12/2025 Vitamin D deficiency (ICD-10 - E55.9) No current blood work is available. He will continue current medications. Vitamin D level will be ordered. 05/23/2025 Hyperlipidemia type II (ICD-10 - E78.01) His lipids have been stable and no change today was made in his regimen. 07/03/2024 Barretts esophagus (ICD-10 - K22.70) He is due for a 10 year colonoscopy and endoscopy. 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 Wesley Carrera. 09/06/2024 Former smoker (ICD-10 - Z87.891) He is highly motivated not to smoke. We discussed a plan to prevent relapse in times of stress and illness. 11/07/2024 Former smoker (ICD-10 - Z87.891) He is highly motivated not to smoke. We discussed a plan to prevent relapse in times of stress and illness. 11/16/2024 Superficial laceration (ICD-10 - T14.8XXA) The bleeding is coming from a small slit in the skin in the perineal body. He is not on blood thinners. He was unable to explain how this happened. The wound is very sharp and the edges are approximated. He will apply triple antibiotic 4 times a day and use a Band-Aid on the area. Follow-up visit was arranged. 12/18/2024 Former smoker (ICD-10 - Z87.891) He is highly motivated not to smoke. We discussed a plan to prevent relapse in times of stress and illness. 01/09/2025 Overweight (ICD-10 - E66.3) He has lost weight. His legs remain edematous. We discussed ways in which to reduce the edema and how to use his compression hose. A repeat office visit was arranged. He may need an alteration in his diuretic therapy 01/10/2025 BPH (benign prostatic hyperplasia) (ICD-10 - N40.0) He has begun to rise from sleep 3 times a night. We discussed lifestyle modifications he may to relieve the nocturia. 03/12/2025 BPH (benign prostatic hyperplasia) (ICD-10 - N40.0) He has begun to rise from sleep 3 times a night. We discussed lifestyle modifications he may to relieve the nocturia. 05/23/2025 Overweight (ICD-10 - E66.3) His body mass index today is 29 and he is no longer in the obese range. This is likely due to fluid loss from resolution of lower extremity edema. 07/03/2024 Environmental allergies (ICD-10 - Z91.09) He is having mild difficulty with allergies. I recommended an nondrowsy antihistamine. 09/06/2024 Eczema (ICD-10 - L30.9) His eczema has improved with the use of clobetasol. He will continue to follow the instructions of the dermatologists. He will call me if he needs the medication refilled. 11/07/2024 Overweight (ICD-10 - E66.3) He has lost weight. His legs remain edematous. We discussed ways in which to reduce the edema and how to use his compression hose. A repeat office visit was arranged. He may need an alteration in his diuretic therapy 11/16/2024 Barretts esophagus (ICD-10 - K22.70) His next endoscopy is scheduled for November 2024. He denies any dysphagia or change in his heartburn. 12/18/2024 BPH (benign prostatic hyperplasia) (ICD-10 - N40.0) He has begun to rise from sleep 3 times a night. We discussed lifestyle modifications he may to relieve the nocturia. 01/10/2025 Hearing loss (ICD-10 - H91.90) His hearing loss is stable but he has significant issues recently with vertigo and tinnitus. He will continue with ENT.His parts analyst is recommended a cochlear implant. I have referred him to Dr. Terry at [facility]. 03/12/2025 Hyperlipidemia type II (ICD-10 - E78.01) His lipids are currently stable and no change in his regimen was needed. 05/23/2025 Environmental allergies (ICD-10 - Z91.09) He is having mild difficulty with allergies. I recommended an nondrowsy antihistamine. 07/03/2024 BPH (benign prostatic hyperplasia) (ICD-10 - N40.0) He arises from sleep twice a night to urinate. No change in his medications was needed. We discussed aggressive sodium restriction weight loss and fluid restriction as a way of defusing lifestyle modification to control nocturia. 09/06/2024 Barretts esophagus (ICD-10 - K22.70) His next endoscopy is scheduled for November 2024. He denies any dysphagia or change in his heartburn. 11/16/2024 Vitamin D deficiency (ICD-10 - E55.9) No current blood work is available. He will continue current medications. Vitamin D level will be ordered. 12/18/2024 Vertigo (ICD-10 - R42) 01/10/2025 Former smoker (ICD-10 - Z87.891) He is highly motivated not to smoke. We discussed a plan to prevent relapse in times of stress and illness. 03/12/2025 Hearing loss (ICD-10 - H91.90) His hearing loss is stable but he has significant issues recently with vertigo and tinnitus. He will continue with ENT.His parts analyst is recommended a cochlear implant. I have referred him to Dr. Terry at [facility]. 05/23/2025 Depression (ICD-10 - F32.9) His depression is stable and controlled and no change in his regimen is necessary. 07/03/2024 Overweight (ICD-10 - E66.3) He has lost 3 pounds through calorie restriction. We discussed his diet and nutrition. We reviewed his weight loss strategy. He was supported in his desire to lose weight at a rate of 1 pound per week. 09/06/2024 Hearing loss (ICD-10 - H91.90) His hearing loss is stable but he has significant issues recently with vertigo and tinnitus. He will continue with ENT. 11/16/2024 Former smoker (ICD-10 - Z87.891) He is highly motivated not to smoke. We discussed a plan to prevent relapse in times of stress and illness. 03/12/2025 Skin lesion of left leg (ICD-10 - L98.9) The superficial lacerations around the ankle are healing well and he has been to the wound clinic. Over the middle of his left del ri[place] there is a hard raised 1 cm area. He is going to the cloud engineer next week. 05/23/2025 Eczema (ICD-10 - L30.9) His eczema has improved with the use of clobetasol. He will continue to follow the instructions of the dermatologists. He will call me if he needs the medication refilled. 03/12/2025 Former smoker (ICD-10 - Z87.891) He is highly motivated not to smoke. We discussed a plan to prevent relapse in times of stress and illness. 05/23/2025 Former smoker (ICD-10 - Z87.891) He is highly motivated not to smoke. We discussed a plan to prevent relapse in times of stress and illness. Plan Of Treatment Pending Test Test Name Order Date PROFILE, FASTING (COMPREHENSIVE METABOLI C) 03/23/2024 PROFILE, FASTING (COMPREHENSIVE METABOLI C) 10/20/2022 PROFILE, FASTING (COMPREHENSIVE METABOLI C) 11/02/2019 PROFILE, FASTING (COMPREHENSIVE METABOLI C) 05/23/2025 PROFILE, FASTING (COMPREHENSIVE METABOLI C) 05/18/2022 PROFILE, FASTING (COMPREHENSIVE METABOLI C) 02/22/2018 PROFILE, FASTING (COMPREHENSIVE METABOLI C) 09/06/2024 PROFILE, FASTING (COMPREHENSIVE METABOLI C) 02/17/2021 PROFILE, FASTING (COMPREHENSIVE METABOLI C) 11/19/2020 PROFILE, FASTING (COMPREHENSIVE METABOLI C) 03/16/2023 HEMOGLOBIN A1C (GLYCOHEMOGLOBIN) 020 URIC ACID 11/02/2019 LIPID PANEL 10/20/2022 LIPID PANEL 11/02/2019 LIPID PANEL 02/22/2018 LIPID PANEL 02/17/2021 LIPID PANEL 11/19/2020 LIPID PANEL 03/16/2023 PSA, TOTAL 03/23/2024 PSA, TOTAL 10/20/2022 PSA, TOTAL 05/23/2025 PSA, TOTAL 05/18/2022 PSA, TOTAL 09/06/2024 PSA, TOTAL 11/02/2019 PSA, TOTAL 02/22/2018 PSA, TOTAL 02/17/2021 PSA, TOTAL 11/19/2020 CBC w DIFF 02/17/2021 CBC w DIFF 11/19/2020 CBC w DIFF 03/16/2023 CBC w DIFF 03/23/2024 CBC w DIFF 10/20/2022 CBC w DIFF 05/23/2025 CBC w DIFF 05/18/2022 CBC w DIFF 11/02/2019 CBC w DIFF 02/22/2018 US LEG LT VENOUS DOPPLER 11/07/2024 VITAMIN D 25-OH TOTAL 11/02/2019 VITAMIN D 25-OH TOTAL 11/19/2020 VITAMIN D 25-OH TOTAL 06/09/2020 CBC WITH AUTO DIFF 09/06/2024 Lipid Panel 03/23/2024 Lipid Panel 05/23/2025 Lipid Panel 05/18/2022 Lipid Panel 09/06/2024 Next Appt Details Provider Name:Wesley Chao, 07/05/2025 10:30:00 AM, [address] [place] [address] , [facility] [address], [place], [address], Insurance Providers Payer Name Payer Address Payer Phone Subscriber Number Group Number Insured Name Patient Relationship to Insured Coverage Start Date Coverage End Date [facility] [address] [place] [phone] [id number] Wesley Artis Self - patient is the insured MEDICARE NGS [address] [place] [address] [id number] Wesley Artis Self - patient is the insured Medical (General) History Medical History History ICD Code hypertension eczematous dermatitis depression allergies cataracts obesity former smoker Benign prostatic hypertrophy Cao's esophagus Surgical History Surgery Date(Month/Year) No history Hospitalization History Reason Date(Month/Year) No history cellulitis right leg 05/2021
--- OUTSIDE RECORDS SUMMARY | 2025-06-29 10:35 | XMS_ITS | Patient Health Record ---
Author Organization [facility] Address [address] [place] [address] Care Team Providers Care Front Desk Coordinator Name Role Phone Pedro Chao MD Primary Care Provider Pedro Minor Unavailable [phone] Allergies Allergen (clinical drug ingredient) Drug/Non Drug Allergy documented on EMR Reaction Allergy Type Onset Date Status Penicillin Unknown Drug Allergy Active tetracycline Tetracycline HCl Unknown Drug Allergy Active dust (uncoded) Unknown Allergy Activ e mold (uncoded) Unknown Allergy Activ e Results Component Value Reference Range Notes Pathology (Not yet reviewed by provider) Interpretation: Performing Lab:[facility], [address] [place] [id number] Notes/Report: Reason For Referral No Information Medications Medication SIG (Take, Route, Frequency, Duration) Notes Start Date End Date Status Norvasc 5mg Active Zoloft 50mg Active tylenol 1 tab Oral Active Lisinopril 5 MG 1 tablet Orally Once a day for 30 day(s) Active Atenolol 50mg Active Famotidine 40 MG TAKE 1 TABLET BY TWICE A DAY for 90 Active Benadryl Active Betamethasone Dipropionate 0.05 % External for 30 Active Problems Problem Type SNOMED Code ICD Code Onset Dates Problem Status W/U Status Risk Notes Problem 965162984 Encounter for screening for malignant neoplasm of colon (Z12.11) Active confirmed Problem Screening for malignant neoplasm of rectum (605555682) Encounter for screening for malignant neoplasm of rectum (Z12.12) Active confirmed Problem Gastroesophageal reflux disease (216055435) Gastroesophageal reflux disease (K21.9) Active confirmed Problem 59037716 Esophageal stricture (K22.2) Active confirmed Problem Hiatal hernia (19171694) Hiatal hernia (K44.9) Active confirmed Problem 41778939 Esophagitis, erosive (K22.10) Active confirmed Problem Cao's esophagus (217199679) 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) Active confirmed Problem Gastroesophageal reflux disease (disorder) (785524255) Chronic GERD (K21.9) Active confirmed Vital Signs Blood pressure diastolic 00 mm Hg 07/26/2024 Height 73 in 07/26/2024 Blood pressure systolic 00 mm Hg 07/26/2024 Weight 205 lbs 07/26/2024 BMI 27.04 kg/m2 07/26/2024 Encounters Encounter Location Date Provider Diagnosis [facility] Outpatient [address] [place] [id number] 11/28/2024 Pedro Carrera Cao''s esophagus without dysplasia K22.70 ; Gastroesophageal reflux disease K21.9 and Hiatal hernia K44.9 [facility] [address] [phone] 07/26/2024 Pedro Carrera Cao''s esophagus without dysplasia K22.70 ; Chronic GERD K21.9 and Hiatal hernia K44.9 [facility] [address] [place] [id number] 02/25/2025 Pedro Carrera [facility] [address] [phone] 07/26/2024 Pedro Carrera Assessments Encounter Date Diagnosis (ICD Code) Assessment Notes Treatment Notes Treatment Clinical Notes Section Notes 11/28/2024 Gastroesophageal reflux disease (ICD-10 - K21.9) 11/28/2024 Cao''s esophagus without dysplasia (ICD-10 - K22.70) 07/26/2024 Cao''s esophagus without dysplasia (ICD-10 - K22.70) Overall, Pedro appears well. His reflux seems to be stable on current regimen of famotidine. We did have a detailed discussion of his history of Cao's esophagus with its theoretical increased risk of esophageal cancer. Given the very long segment of Cao's esophagus and the fact that he has not had a surveillance endoscopy since the procedure in 2016, I did recommend a followup upper endoscopy for surveillance biopsies. While he is 79 years old he does appear to be in good clinical health and therefore think the procedure would be reasonable to do to be sure he has not developed any significant dysplasia that could warrant endoscopic ablation therapy. Full consent was obtained from him for the endoscopy, including risks of bleeding and perforation. The procedure was done with monitored anesthesia care. Pedro was comfortable with this plan. Thank you again for allowing me to participatein Pedro's care. I shall continue to keep you advised of his progress. 07/26/2024 Chronic GERD (ICD-10 - K21.9) Overall, Pedro appears well. His reflux seems to be stable on current regimen of famotidine. We did have a detailed discussion of his history of Cao's esophagus with its theoretical increased risk of esophageal cancer. Given the very long segment of Cao's esophagus and the fact that he has not had a surveillance endoscopy since the procedure in 2015, I did recommend a followup upper endoscopy for surveillance biopsies. While he is 79 years old he does appear to be in good clinical health and therefore think the procedure would be reasonable to do to be sure he has not developed any significant dysplasia that could warrant endoscopic ablation therapy. Full consent was obtained from him for the endoscopy, including risks of bleeding and perforation. The procedure was done with monitored anesthesia care. Pedro was comfortable with this plan. Thank you again for allowing me to participatein Pedro's care. I shall continue to keep you advised of his progress. 11/28/2024 Hiatal hernia (ICD-10 - K44.9) 07/26/2024 Hiatal hernia (ICD-10 - K44.9) Overall, Pedro appears well. His reflux seems to be stable on current regimen of famotidine. We did have a detailed discussion of his history of Cao's esophagus with its theoretical increased risk of esophageal cancer. Given the very long segment of Cao's esophagus and the fact that he has not had a surveillance endoscopy since the procedure in 2015, I did recommend a followup upper endoscopy for surveillance biopsies. While he is 79 years old he does appear to be in good clinical health and therefore think the procedure would be reasonable to do to be sure he has not developed any significant dysplasia that could warrant endoscopic ablation therapy. Full consent was obtained from him for the endoscopy, including risks of bleeding and perforation. The procedure was done with monitored anesthesia care. Pedro was comfortable with this plan. Thank you again for allowing me to participatein Pedro's care. I shall continue to keep you advised of his progress. Plan Of Treatment Pending Test Test Name Order Date Pathology 11/28/2024 Future Test Test Name Order Date UPPER GI ENDOSCOPY BALLOOON DILATION OF ESOPH 11/06/2015 COLONOSCOPY 11/06/2015 UPPER GI ENDOSCOPY 07/26/2024 Next Appt Details Provider Name:Pedro Carrera , 08/22/2025 10:20:00 AM, [address] [place] [address], [address], [place], [phone], Insurance Providers Payer Name Payer Address Payer Phone Subscriber Number Group Number Insured Name Patient Relationship to Insured Coverage Start Date Coverage End Date [employer] [address] [place] [phone] [id number] PEDRO ACOSTA Self - patient is the insured Medical (General) History Medical History History ICD Code HTN Denies MA,DM,CVA,Lung disease,renal dise ase EGD in 08/2015 for [...]
[2025-06-29 11:01] LABS: MANUAL DIFF FLAG NO
[2025-06-29 11:27] LABS: Hematocrit 41.8 % (42.0-52.0); Hemoglobin 14.7 g/dl (14.0-18.0); Imm Gran Abs Auto 0.03 X10*3/uL (0.00-0.03); Imm Gran Pct Auto 0.3 % (0.0-0.4); Lymphocytes Absolute Auto 1.2 X10*3/uL (1.2-4.9); Mean Corpuscular HGB Conc 35.2 g/dl (31.0-36.0); Mean Corpuscular Hemoglobin 29.9 pg (27.0-33.0); Mean Corpuscular Volume 85.1 fL (80.0-98.0); NRBC Abs Auto 0.000 X10*3/uL (0.0-0.012); NRBC Pct Auto 0.0 /100WBC (0.0-0.2); Platelet Count 296 X10*3/uL (160-400); Red Blood Count 4.91 X10*6/uL (4.60-5.80); White Blood Count 9.1 X10*3/uL (4.8-10.8)
[2025-06-29 12:04] LABS: Alanine Aminotransferase 14 U/L (0-40); Albumin Level 4.3 g/dL (3.5-5.0); Alkaline Phosphatase 84 U/L (39-117); Anion Gap 12 (12-20); Aspartate Amino Transferase 27 U/L (5-37); Blood Urea Nitrogen 15 mg/dL (9-16); Calcium 8.9 mg/dL (8.4-10.2); Carbon Dioxide 27 mmol/L (22-29); Chloride 105 mmol/L (96-108); Cholesterol 162 mg/dL (<200); Estimated Glomerular Filt Rate 57; HDL Cholesterol 42 mg/dL (>40); Potassium 3.8 mmol/L (3.3-5.1); Sodium 140 mmol/L (135-145); Total Protein 7.9 g/dL (6.5-8.0); Triglycerides 201 mg/dL (<150)
[2025-06-29 12:40] LABS: Prostate Specific Antigen 3.40 ng/mL (<0.05-4.0)
== END 2025-06-29 10:32 | disposition home or self-care (01) ==
LOC: HO.LAB 10:31
PROVIDERS: PCP Internal Medicine Medical Oncology; Visit Provider Internal Medicine Medical Oncology
DX: I10 Essential (primary) hypertension (principal); E55.9 Vitamin D deficiency, unspecified; N40.0 Benign prostatic hyperplasia without lower urinary tract symptoms; E78.01 Familial hypercholesterolemia; E66.3 Overweight; Z12.5 Encounter for screening for malignant neoplasm of prostate
CPT/HCPCS: 36415; 80053; 80061; 84153; 85025